=== PATIENT | female | born 1930 | race Caucasian/White ===

== ENCOUNTER 2018-07-19 16:25 | Inpatient (IN) | payer MEDICARE ==
--- NOTE | 2018-07-19 17:25 | ED ---
Altered Mental Status - HPI Summary HPI Summary: The patient is an 88 y/o F presenting to [facility] accompanied by edge gluer with a chief complaint of intermittent gradual onset confusion for the last few weeks. Per edge gluer, the patient has seemingly been unsure of what she is doing and more forgetful. She reports that she is afraid to be alone. She was unwilling to get out of bed today. Her PCP, Dr. Gomez advised the patient to come here. No smoking or EtOH. - History Of Current Complaint Chief Complaint: EDAltMentalStatus Stated Complaint: CONFUSION Time Seen by Provider: 07/19/18 16:52 Hx Obtained From: Patient, Family/Long Term Care Social Worker Onset/Duration: Still Present, Gradually Timing: Intermittent Severity Initially: Mild Severity Currently: Mild Character: Confusion Aggravating Factor(s): Nothing Alleviating Factor(s): Nothing - Allergies/Home Medications Allergies/Adverse Reactions: Allergies Allergy/AdvReac Type Severity Reaction Status Date / Time No Known Allergies Allergy Verified 07/19/18 16:48 Home Medications: Home Medications Benazepril/Hydrochlorothiazide [Benazepril HCl/Hydrochlor 20-25 mg-] 1 tab PO DAILY 07/19/18 [History Confirmed 07/19/18] Levothyroxine TAB* [Synthroid TAB*] 25 mcg PO EVERY OTHER DAY 07/19/18 [History Confirmed 07/19/18] PMH/Surg Hx/FS Hx/Imm Hx Endocrine/Hematology History: Denies: Hx Diabetes Opthamlomology History: Reports: Hx Contacts or Glasses - Surgical History Surgery Procedure, Year, and Place: none Infectious Disease History: No Infectious Disease History: Denies: Traveled Outside the [place] in Last 30 Days - Family History Known Family History: Positive: Unknown - patient is unsure - Social History Alcohol Use: None Hx Substance Use: No Substance Use Type: Reports: None Hx Tobacco Use: Yes Smoking Status (MU): Former Smoker Review of Systems Negative: Fever, Chills Negative: Erythema Negative: Sore Throat Negative: Chest Pain Negative: Shortness Of Breath, Cough Negative: Abdominal Pain, Vomiting, Nausea Negative: dysuria, hematuria Negative: Myalgia, Edema Negative: Rash Neurological: Other - POSITIVE: afraid to be alone confused; NEGATIVE: dizziness All Other Systems Reviewed And Are Negative: Yes Physical Exam - Summary Physical Exam Summary: Constitutional: Well-developed, Well-nourished, Alert. (-) Distressed Skin: Warm, Dry HENT: Normocephalic; Atraumatic, Dry mucous membranes Eyes: Conjunctiva normal Neck: Musculoskeletal ROM normal neck. (-) JVD, (-) Stridor, (-) Tracheal deviation Cardio: Rhythm regular, rate normal, Heart sounds normal; Intact distal pulses; The pedal pulses are 2+ and symmetric. Radial pulses are 2+ and symmetric. (-) Murmur Pulmonary/Chest wall: Effort normal. (-) Respiratory distress, (-) Wheezes, (-) Rales Abd: Soft, (-) epigastric tenderness, (-) Distension, (-) Guarding, (-) Rebound Musculoskeletal: (-) Edema Lymph: (-) Cervical adenopathy Neuro: Alert, Oriented x3 Psych: Mood and affect Normal Triage Information Reviewed: Yes Vital Signs On Initial Exam: Initial Vitals Temp Pulse Resp BP Pulse Ox 99.1 F 79 16 179/93 96 07/19/18 16:30 07/19/18 16:30 07/19/18 16:30 07/19/18 16:30 07/19/18 16:30 Vital Signs Reviewed: Yes Diagnostics - Vital Signs Vital Signs Temp Pulse Resp BP Pulse Ox 07/19/18 16:30 99.1 F 79 16 179/93 96 - Laboratory Result Diagrams: 07/19/18 17:24 07/19/18 17:24 Lab Statement: Any lab studies that have been ordered have been reviewed, and results considered in the medical decision making process. - EKG 1743 Cardiac Rate: NL - 73 BPM EKG Rhythm: Sinus Rhythm Summary of EKG Findings: No STEMI. Altered Mental Statu Course/Dx - Course Course Of Treatment: The patient is an 88 y/o F presenting to [facility] accompanied by edge gluer with a chief complaint of intermittent gradual onset confusion for the last few weeks. Per edge gluer, the patient has seemingly been unsure of what she is doing and more forgetful. She reports that she is afraid to be alone. She was unwilling to get out of bed today. Her PCP, Dr. Gomez advised the patient to come here. Upon physical exam, the patient exhibits dry mucous membranes. In the ED course, the patient was given Potassium Chloride for low potassium. Blood work otherwise normal. UA reveals WBCs, RBCs, and leukocytes. I consulted with the patients oil spreader operator, who is also her health proxy, at 1720 to confirm admission; he is agreeable. I spoke with Dr. Redmond, hospitalist, at 19 :55, who accepts the patient for admission. Patient agrees and understands the need for admission. She is diagnosed with UTI and delirium. - Diagnoses Provider Diagnoses: UTI (urinary tract infection), Delirium - Provider Notifications Discussed Care Of Patient With: Declan Redmond - hospitalist Time Discussed With Above Provider: 19:55 Instructed by Provider To: Other - Dr. Redmond accepts the patient for admission. Discharge - Sign-Out/Discharge Documenting (check all that apply): Patient Departure - [place] [facility] [place] by Dr. Redmond. - Discharge Plan Condition: Stable Disposition: ADMITTED TO [facility] - Billing Disposition and Condition Condition: STABLE Disposition: Admitted to [facility] - Attestation Statements Document Initiated by Janettibe: Yes Documenting Scribe: Angy Guillen Provider For Whom Moni is Documenting (Include Credential): Dr. Christian Solorio MD Scribe Attestation: I, Angy Guillen, scribed for Dr. Christian Solorio MD on 07/19/18 at 6861. Scribe Documentation Reviewed: Yes Provider Attestation: The documentation as recorded by the Angy cutler accurately reflects the service I personally performed and the decisions made by me, Dr. Christian Solorio MD Status of Scribe Document: Viewed
[2018-07-19 17:39] LABS: Hematocrit 46 % (35-47); Hemoglobin 15.6 g/dl (12.0-16.0); Mean Corpuscular HGB Conc 34 g/dl (31-36); Mean Corpuscular Hemoglobin 31 pg (27-31); Mean Corpuscular Volume 92 fL (80-97); Mean Platelet Volume 9.8 fL (7.4-10.4); Platelet Count 227 10^3/ul (150-450); Red Blood Count 5.02 10^6/ul (4.00-5.40); Red Cell Distribution Width 13 % (10.5-15); White Blood Count 9.2 10^3/ul (3.5-10.8)
[2018-07-19 17:55] LABS: Albumin/Globulin Ratio 1.2 (1-3); BUN/Creatinine Ratio 23.8 (8-20); Calcium 9.7 mg/dL (8.6-10.3); EGFR Non-African American 89.6 (>60); Globulin 3.3 g/dL (2-4); Potassium 3.2 mmol/L (3.5-5.0); Total Bilirubin 0.7 mg/dL (0.2-1.0); Total Protein 7.3 g/dL (6.4-8.9)
[2018-07-19] MEDS ORDERED: Potassium Chloride LIQUID* 20 MEQ PACKET PO ONE (18:59)
[2018-07-19 19:30] LABS: Urine Appearance Cloudy; Urine Bacteria Absent (Absent); Urine Bilirubin Negative (Negative); Urine Blood Negative (Negative); Urine Color Yellow; Urine Glucose Negative (Negative); Urine Ketones Negative (Negative); Urine Nitrite Negative (Negative); Urine Protein Negative (Negative); Urine Red Blood Cell Absent (Absent); Urine Specific Gravity 1.012 (1.010-1.030); Urine Urobilinogen Negative (Negative); Urine White Blood Cell 3+(>20/hpf) (Absent)
[2018-07-19] MEDS ORDERED: cefTRIAXone(*) 1 GM in NS 0.9% 50 ML* 50 ML IVPB ONE (19:54)
[2018-07-19] MEDS ORDERED: Potassium Chlor TAB* 10 MEQ TAB.ER PO ONE (20:40)
[2018-07-19] MEDS: Heparin VIAL(*) 5000 UNITS/ML VIAL (FIVE THOUSAND) SUBCUT SCH (22:47)
--- NOTE | 2018-07-19 23:05 | HP ---
CC: Dr. Gomez * HISTORY AND PHYSICAL: DATE OF ADMISSION: 07/19/18 PROVIDER: Wen Aguirre NP. PRIMARY CARE PROVIDER: Dr. Gomez. ATTENDING PHYSICIAN WHILE IN THE HOSPITAL: Dr. Declan Redmond * (dictated by Wen Aguirre NP). CHIEF COMPLAINT: Confusion. HISTORY OF PRESENT ILLNESS: Ms. Forte is an 88-year-old female with a past medical history significant for hypertension, hypothyroid, asthma, and chronic hepatitis C who presented to the emergency room with increased confusion. The patient denies any recent fever, chills, cough, congestion, shortness of breath , abdominal pain, nausea, vomiting, or diarrhea. Denies any hematuria, dysuria , or urinary frequency. Per the apparel manufacture instructor, the patient has had progressively increased confusion for the past 2 years, but more significant over the past 3 weeks. Due to the increased confusion, the patient was brought to the emergency room. Per the apparel manufacture instructor, the patient calls him several times a day stating she does not know what to do or what to do next. At this point, the apparel manufacture instructor feels that the patient is not able to stay at home by herself and will need placement. Due to her altered mental status and increased confusion, we were asked to see and evaluate her for admission. PAST MEDICAL HISTORY: Significant for: 1. Hypertension. 2. Hypothyroid. 3. Asthma. 4. Chronic hepatitis C. PAST SURGICAL HISTORY: 1. Hysterectomy. 2. Appendectomy. 3. Cataract surgery. HOME MEDICATIONS: Include: 1. Levothyroxine. 2. Benazepril/hydrochlorothiazide 20 mg/25 mg 1 tablet p.o. daily. 3. Multivitamin 1 tablet p.o. daily. ALLERGIES: She is allergic to EGGS and CHEESE. FAMILY HISTORY: Sister is a breast cancer survivor. Father at age 76 of an CT. One daughter suicide and depression. The patient has a daughter in [place] and an estranged son. SOCIAL HISTORY: She lives alone. Surrogate decision maker in the event she is unable to make her own decisions is her staff attorney, Freddie Rodriguez. She is a do not resuscitate. REVIEW OF SYSTEMS: She denies any fever, loss of appetite. Denies any chest pain, edema, cough, hemoptysis, or shortness of breath. Denies any nausea, vomiting, diarrhea, abdominal pain, hematuria, or dysuria. Denies any focal weakness, sensory loss, visual complaints, dysphagia, arthralgias, myalgias, rashes, lesions, psychosis, or anxiety. She does report some increased confusion and unable to function on her own at home. PHYSICAL EXAMINATION GENERAL: At this time, Ms. Forte is an 88-year-old female, resting on the stretcher in the emergency room. She appears well nourished, in no acute distress. HEENT: Head is atraumatic, normocephalic. Eyes: EOMs are intact. Sclerae anicteric and not pale. Oral mucosa appears to be moist. NECK: Supple. LUNGS: Clear to auscultation bilaterally. No wheezes, rales, or rhonchi. CARDIAC: S1, S2. Regular rate and rhythm with occasional PVC. ABDOMEN: Soft and nontender. Bowel sounds are present x4. No suprapubic tenderness to palpation. EXTREMITIES: Pedal pulses are +2 bilaterally. She is able to move all 4 extremities with 5/5 strength. There is no edema. NEUROLOGIC: The patient is confused to situation, but able to be orient. SKIN: Intact. DIAGNOSTIC STUDIES/LAB DATA: WBCs were 9.2, RBCs 5.02, hemoglobin 15.6, hematocrit 46, platelet count 227. Sodium 139, potassium 3.2, chloride 99, carbon dioxide was 35, anion gap was 5, BUN was 15, creatinine 0.63. Troponin was 0.01. Glucose was 93. Urine was yellow, cloudy, pH was 8.0, specific gravity 1.012. Urine protein, ketones, blood, nitrites, bilirubin, urobilinogen was all negative. Urine leukocyte esterase was 3+, wbc's were 3+, rbc's were absent, squamous epithelial cells were present, bacteria was absent, glucose was negative. ASSESSMENT AND PLAN: Ms. Forte is an 88-year-old female with a past medical history significant for hypertension, hypothyroid, asthma, and chronic hepatitis C who presented to the emergency room for increased confusion and reports of unable to care for herself at home. She will be admitted under observation for: 1. Altered mental status. I suspect this could be related to underlying urinary tract infection. The patient has had a decline with confusion for 2 years, but progressively worsened in the last 3 weeks. The patient has no other complaints. She denies any shortness of breath, cough, or congestion. She was given ceftriaxone 1 g IV in the emergency room. We will continue ceftriaxone 1 g IV daily for urinary tract infection. 2. Hypertension. We will continue on benazepril/hydrochlorothiazide as previously prescribed. 3. Hypothyroid. I will continue on levothyroxine as previously prescribed. 4. Hypokalemia. Her potassium was 3.2. She did receive a total of 40 mEq of potassium and will repeat her potassium level in the a.m. 5. FEN: She can have a heart-healthy, caffeine-okay diet. 6. Code status: She is a DNR. 7. DVT prophylaxis: I will place her on heparin subcu. TIME SPENT: Time spent on this admission was approximately 60 minutes, greater than half that time was spent at the bedside reviewing events thus far to her hospitalization, performing my physical exam, and implementing my plan of care. I have discussed this with my attending, Dr. Declan Redmond; he is in agreement with my plan. WEN AGUIRRE, JOSE [id number]/CPS #: [id number] JUNG
[2018-07-20] MEDS ORDERED: Melatonin 3 MG TAB PO ONE (03:17)
[2018-07-20] MEDS: Melatonin 3 MG TAB PO SCH ×2 (03:23→20:09)
[2018-07-20] MEDS: Heparin VIAL(*) 5000 UNITS/ML VIAL (FIVE THOUSAND) SUBCUT SCH ×3 (05:57→20:09)
[2018-07-20] MEDS ORDERED: NS 0.9% 1000 ML* 1,000 ML IV SCH (07:30)
[2018-07-20 08:55] LABS: BUN/Creatinine Ratio 30.8 (8-20); Calcium 9.3 mg/dL (8.6-10.3); EGFR Non-African American 86.4 (>60); Potassium 3.2 mmol/L (3.5-5.0)
[2018-07-20] MEDS ORDERED: HYDROCHLOROTHIAZIDE PO SCH (09:00)
[2018-07-20] MEDS ORDERED: [UNRECOGNIZED DRUG - OTHER] PO SCH (09:00)
[2018-07-20] MEDS ORDERED: BENAZEPRIL PO SCH (09:00)
[2018-07-20 09:11] LABS: TSH (Thyroid Stimulating Horm) 7.16 mcIU/mL (0.34-5.60)
[2018-07-20] MEDS: Hydrochlorothiazide TAB* 25 MG PO SCH (09:30)
[2018-07-20] MEDS: Lisinopril TAB* 10 MG PO SCH (09:30)
[2018-07-20] MEDS ORDERED: Potassium Chloride LIQUID* 20 MEQ PACKET PO ONE (09:56)
--- NOTE | 2018-07-20 14:52 | PN ---
Subjective Date of Service: 07/20/18 Interval History: Patient is very confused today, patient does not know where she is, what year it is, who is the president, or any details about her clinical situation. Patient denies F/C, N/V, abdominal pain, CP, SOB, diarrhea, or other pain. Discussed patient with POA and she has been deteriorating mentally recently with a more steep deterioration in the last month. Family History: Unchanged from Admission Social History: Unchanged from Admission Past Medical History: Unchanged from Admission Objective Active Medications: Acetaminophen (Tylenol Tab*) 650 mg PO Q4H PRN PRN Reason: FEVER/PAIN Heparin Sodium (Porcine) (Heparin Vial(*)) 5,000 units SUBCUT Q8HR [facility] Last Admin: 07/20/18 12:45 Dose: 5,000 units Hydrochlorothiazide (Hydrodiuril Tab*) 25 mg PO DAILY [facility] Last Admin: 07/20/18 09:30 Dose: 25 mg Ceftriaxone Sodium 1 gm/ (Sodium Chloride) 50 mls @ 200 mls/hr IVPB Q24H [facility] Lisinopril (Prinivil Tab*) 20 mg PO DAILY [facility] Last Admin: 07/20/18 09:30 Dose: 20 mg Melatonin (Melatonin) 3 mg PO BEDTIME [facility] Last Admin: 07/20/18 03:23 Dose: 3 mg Vital Signs - 8 hr 07/20/18 07/20/18 07:34 10:55 Temperature 97.6 F 97.4 F Pulse Rate 68 60 Respiratory 20 18 Rate Blood Pressure 142/60 117/52 (mmHg) O2 Sat by Pulse 98 98 Oximetry Oxygen Devices in Use Now: None Appearance: Patient is an 88yo female who appears stated age and is sitting in the bed in [facility]. Eyes: No Scleral Icterus, PERRLA Ears/Nose/Mouth/Throat: NL Teeth, Lips, Gums, Clear Oropharnyx, Mucous Membranes Moist Neck: NL Appearance and Movements; NL JVP, Trachea Midline Respiratory: Symmetrical Chest Expansion and Respiratory Effort, Clear to Auscultation Cardiovascular: NL Sounds; No Murmurs; No JVD, RRR, No Edema Abdominal: NL Sounds; No Tenderness; No Distention, No Hepatosplenomegaly Lymphatic: No Cervical Adenopathy Extremities: No Edema, No Clubbing, Cyanosis Skin: No Rash or Ulcers, No Nodules or Sclerosis Neurological: NL Sensation, NL Muscle Strength and Tone, - - Unstable gait, wide based. Result Diagrams: 07/19/18 17:24 07/20/18 07:54 Assess/Plan/Problems-Billing Assessment: Patient is an 88yo female with a PMH for HTN, Hypothyroidism, and Hep C who presents with worsening confusion over the last 3 weeks in a similar pattern to when she has had previous UTIs. Patient is still very confused and unsteady on her feet. - Patient Problems (1) Toxic metabolic encephalopathy Current Visit: Yes Status: Acute Code(s): G92 - TOXIC ENCEPHALOPATHY SNOMED Code(s): 409637256 Comment: - Increased confusion, likely caused by UTI, currently unsafe to D/C home due to confusion and unsteady gait - Continue fluids and antibiotics - Check ammonia due to Hep C. (2) UTI (urinary tract infection) Current Visit: Yes Status: Acute Comment: - Positive UA - Continue Ceftriaxone awaiting culture. (3) Hypothyroidism Current Visit: Yes Status: Acute Code(s): E03.9 - HYPOTHYROIDISM, UNSPECIFIED SNOMED Code(s): 84937982 Comment: - Elevated TSH with normal hormones - Repeat outpatient and continue current synthroid dose. (4) Dementia Current Visit: Yes Status: Acute Code(s): F03.90 - UNSPECIFIED DEMENTIA WITHOUT BEHAVIORAL DISTURBANCE SNOMED Code(s): 74422448 Comment: - Worsening, likely alzheimers, consider outpatient neuro consult and 1 time shayla imaging through primary care provider. (5) DVT prophylaxis Current Visit: Yes Status: Acute Code(s): VCH9565 - SNOMED Code(s): 159757778 Comment: - Heparin SubQ. (6) DNR (do not resuscitate) Current Visit: Yes Status: Acute Status and Disposition: Observation, Possible placement, currently unsafe for discharge home.
[2018-07-20] MEDS ORDERED: LORazepam TAB(*) 0.5 MG PO ONE (19:46)
[2018-07-20] MEDS: cefTRIAXone(*) 1 GM in NS 0.9% 50 ML* 50 ML IVPB SCH (20:08)
[2018-07-20] MEDS: Lactulose* 15 ML UDC PO SCH (20:08)
[2018-07-20] MEDS: Acetaminophen TAB* 325 MG PO PRN (20:09)
[2018-07-21] MEDS: Heparin VIAL(*) 5000 UNITS/ML VIAL (FIVE THOUSAND) SUBCUT SCH ×3 (05:53→20:06)
[2018-07-21 08:03] LABS: EGFR Non-African American 104.8 (>60); Potassium 3.7 mmol/L (3.5-5.0)
[2018-07-21] MEDS: Lisinopril TAB* 10 MG PO SCH (09:29)
[2018-07-21] MEDS: Lactulose* 15 ML UDC PO SCH ×2 (09:29→20:06)
[2018-07-21] MEDS: Hydrochlorothiazide TAB* 25 MG PO SCH (09:29)
[2018-07-21 11:46] LABS: INR 0.91 (0.77-1.02)
--- NOTE | 2018-07-21 13:48 | PN ---
Subjective Date of Service: 07/21/18 Interval History: Patient is more lucid today. Patient is able to state the year, president, where she is, patient is not quite sure why she is in the hospital. Patient is able to remember the history of her hepatitis C and that she opted out of treatment for it before. Patient has very poor short term memory and compreshension and needs to have questions and statements repeated several times. Patient unable to remember contents of conversation earlier when she is visited again later. Patient has a large amount of difficulty working with PT/ OT. Family History: Unchanged from Admission Social History: Unchanged from Admission Past Medical History: Unchanged from Admission Objective Active Medications: Acetaminophen (Tylenol Tab*) 650 mg PO Q4H PRN PRN Reason: FEVER/PAIN Last Admin: 07/20/18 20:09 Dose: 650 mg Heparin Sodium (Porcine) (Heparin Vial(*)) 5,000 units SUBCUT Q8HR [facility] Last Admin: 07/21/18 05:53 Dose: 5,000 units Hydrochlorothiazide (Hydrodiuril Tab*) 25 mg PO DAILY [facility] Last Admin: 07/21/18 09:29 Dose: 25 mg Ceftriaxone Sodium 1 gm/ (Sodium Chloride) 50 mls @ 200 mls/hr IVPB Q24H [facility] Last Admin: 07/20/18 20:08 Dose: 200 mls/hr Lactulose (Lactulose*) 15 ml PO BID [facility] Last Admin: 07/21/18 09:29 Dose: 15 ml Lisinopril (Prinivil Tab*) 20 mg PO DAILY [facility] Last Admin: 07/21/18 09:29 Dose: 20 mg Melatonin (Melatonin) 3 mg PO BEDTIME [facility] Last Admin: 07/20/18 20:09 Dose: 3 mg Vital Signs - 8 hr 07/21/18 07/21/18 07:27 11:36 Temperature 97.2 F 97.5 F Pulse Rate 52 56 Respiratory 18 18 Rate Blood Pressure 158/64 157/71 (mmHg) O2 Sat by Pulse 96 97 Oximetry Oxygen Devices in Use Now: None Appearance: Patient is an 88yo female who appears stated age and is sitting in the bed in [facility]. Eyes: No Scleral Icterus, PERRLA Ears/Nose/Mouth/Throat: NL Teeth, Lips, Gums, Clear Oropharnyx, Mucous Membranes Moist Neck: NL Appearance and Movements; NL JVP, Trachea Midline Respiratory: Symmetrical Chest Expansion and Respiratory Effort, Clear to Auscultation Cardiovascular: NL Sounds; No Murmurs; No JVD, RRR, No Edema Abdominal: NL Sounds; No Tenderness; No Distention, No Hepatosplenomegaly Lymphatic: No Cervical Adenopathy Extremities: No Edema, No Clubbing, Cyanosis Skin: No Rash or Ulcers, No Nodules or Sclerosis Neurological: NL Sensation, NL Muscle Strength and Tone, - - Unsteady gait, Alert and oriented to person, place but not time. Result Diagrams: 07/19/18 17:24 07/21/18 07:26 Assess/Plan/Problems-Billing Assessment: Patient is an 88yo female with a PMH for HTN, Hypothyroidism, and Hep C who presents with worsening confusion over the last 3 weeks in a similar pattern to when she has had previous UTIs. Patient is slightly less confused today but is performing poorly with PT/OT and is unsafe to go home. - Patient Problems (1) Toxic metabolic encephalopathy Current Visit: Yes Status: Acute Code(s): G92 - TOXIC ENCEPHALOPATHY SNOMED Code(s): 454724629 Comment: - Slight improvement in mental status - Likely caused by UTI, currently unsafe to D/C home due to confusion and unsteady gait - Continue antibiotics - Ammonia elevated below 2x upper limit of normal - Ammonia decreased with lactulose therapy with improvement in mental state. However, patient has no signs of cirrhosis on imaging and no other laboratory signs of cirrhosis making the elevation in ammonia of unclear clinical significance (2) UTI (urinary tract infection) Current Visit: Yes Status: Acute Comment: - Positive UA - Continue Ceftriaxone awaiting culture. (3) Hypothyroidism Current Visit: Yes Status: Acute Code(s): E03.9 - HYPOTHYROIDISM, UNSPECIFIED SNOMED Code(s): 08822566 Comment: - Elevated TSH with normal hormones - Repeat outpatient and continue current synthroid dose. (4) Dementia Current Visit: Yes Status: Acute Code(s): F03.90 - UNSPECIFIED DEMENTIA WITHOUT BEHAVIORAL DISTURBANCE SNOMED Code(s): 73303128 Comment: - Worsening, likely alzheimers, consider outpatient neuro consult and 1 time shayla imaging through primary care provider. - Patient is unsafe to send home and will likely need placement (5) DVT prophylaxis Current Visit: Yes Status: Acute Code(s): FRW6730 - SNOMED Code(s): 283442892 Comment: - Heparin SubQ. (6) DNR (do not resuscitate) Current Visit: Yes Status: Acute Status and Disposition: Observation, Possible placement, currently unsafe for discharge home.
[2018-07-21] MEDS: cefTRIAXone(*) 1 GM in NS 0.9% 50 ML* 50 ML IVPB SCH (20:02)
[2018-07-21] MEDS: Melatonin 3 MG TAB PO SCH (20:06)
[2018-07-21] MEDS ORDERED: LORazepam TAB(*) 0.5 MG PO ONE (20:40)
[2018-07-22] MEDS: Acetaminophen TAB* 325 MG PO PRN (00:14)
[2018-07-22] MEDS: Heparin VIAL(*) 5000 UNITS/ML VIAL (FIVE THOUSAND) SUBCUT SCH ×3 (05:30→20:05)
[2018-07-22 05:54] LABS: ABS Basophils 0.1 10^3/ul (0-0.2); ABS Eosinophils 0.2 10^3/ul (0-0.6); ABS Lymphocytes 1.1 10^3/ul (1.0-4.8); ABS Monocytes 0.5 10^3/ul (0-0.8); ABS Neutrophils 3.1 10^3/ul (1.5-7.7); ABS Nucleated RBC 0 10^3/ul; Eosinophil % 4.9 %; Hematocrit 39 % (35-47); Hemoglobin 13.3 g/dl (12.0-16.0); Lymphocyte % 22.4 %; Mean Corpuscular HGB Conc 34 g/dl (31-36); Mean Corpuscular Hemoglobin 31 pg (27-31); Mean Corpuscular Volume 91 fL (80-97); Mean Platelet Volume 9.6 fL (7.4-10.4); Nucleated Red Blood Cells % 0; Platelet Count 176 10^3/ul (150-450); Red Blood Count 4.34 10^6/ul (4.00-5.40); Red Cell Distribution Width 13 % (10.5-15); White Blood Count 4.9 10^3/ul (3.5-10.8)
[2018-07-22 06:18] LABS: EGFR Non-African American 94.8 (>60); Magnesium 1.7 mg/dL (1.9-2.7); Potassium 3.4 mmol/L (3.5-5.0)
[2018-07-22] MEDS ORDERED: Potassium Chlor TAB* 20 MEQ TAB.ER PO ONE (08:02)
--- NOTE | 2018-07-22 08:04 | PN ---
Subjective Date of Service: 07/22/18 Interval History: patient remains confusion to situation. Patient does report that she is here because she is unable to care for herself at home. She is oriented x 3, but needs constant reminding of situation. Denies chest pain or shortness of breath. denies abd pain n/v/d. denies fever or chills Family History: Unchanged from Admission Social History: Unchanged from Admission Past Medical History: Unchanged from Admission Objective Active Medications: Acetaminophen (Tylenol Tab*) 650 mg PO Q4H PRN PRN Reason: FEVER/PAIN Last Admin: 07/22/18 00:14 Dose: 650 mg Heparin Sodium (Porcine) (Heparin Vial(*)) 5,000 units SUBCUT Q8HR [facility] Last Admin: 07/22/18 05:30 Dose: 5,000 units Hydrochlorothiazide (Hydrodiuril Tab*) 25 mg PO DAILY [facility] Last Admin: 07/21/18 09:29 Dose: 25 mg Ceftriaxone Sodium 1 gm/ (Sodium Chloride) 50 mls @ 200 mls/hr IVPB Q24H [facility] Last Admin: 07/21/18 20:02 Dose: 200 mls/hr Lactulose (Lactulose*) 15 ml PO BID [facility] Last Admin: 07/21/18 20:06 Dose: 15 ml Lisinopril (Prinivil Tab*) 20 mg PO DAILY [facility] Last Admin: 07/21/18 09:29 Dose: 20 mg Melatonin (Melatonin) 3 mg PO BEDTIME [facility] Last Admin: 07/21/18 20:06 Dose: 3 mg Vital Signs - 8 hr 07/22/18 07/22/18 07/22/18 01:26 02:16 07:13 Temperature 97.0 F 97.0 F Pulse Rate 58 66 Respiratory 18 16 18 Rate Blood Pressure 158/58 152/70 (mmHg) O2 Sat by Pulse 97 96 Oximetry Oxygen Devices in Use Now: None Appearance: well nourished elderly female , no acute distress Eyes: No Scleral Icterus Ears/Nose/Mouth/Throat: Clear Oropharnyx, Mucous Membranes Moist Neck: NL Appearance and Movements; NL JVP, Trachea Midline Respiratory: Symmetrical Chest Expansion and Respiratory Effort, Clear to Auscultation Cardiovascular: NL Sounds; No Murmurs; No JVD, No Edema Abdominal: NL Sounds; No Tenderness; No Distention Extremities: No Edema, No Clubbing, Cyanosis Skin: No Rash or Ulcers Neurological: Alert and Oriented x 3, - - confused to situation Nutrition: Taking PO's Result Diagrams: 07/22/18 05:38 07/22/18 05:38 Assess/Plan/Problems-Billing Assessment: Patient is an 88yo female with a PMH for HTN, Hypothyroidism, and Hep C who presents with worsening confusion over the last 3 weeks in a similar pattern to when she has had previous UTIs. Patient is slightly less confused today but is performing poorly with PT/OT and is unsafe to go home. - Patient Problems (1) Toxic metabolic encephalopathy Current Visit: Yes Status: Acute Code(s): G92 - TOXIC ENCEPHALOPATHY SNOMED Code(s): 685496879 Comment: - Slight improvement in mental status - Likely caused by UTI, currently unsafe to D/C home due to confusion and unsteady gait - Continue antibiotics - Ammonia was elevated below 2x upper limit of normal - Ammonia decreased with lactulose therapy with improvement in mental state. - remains confused to situation and weepy today. -However, patient has no signs of cirrhosis on imaging and no other laboratory signs of cirrhosis making the elevation in ammonia of unclear clinical significance (2) UTI (urinary tract infection) Current Visit: Yes Status: Acute Comment: - Positive UA - Continue Ceftriaxone - culture pending (3) Hypokalemia Current Visit: Yes Status: Acute Code(s): E87.6 - HYPOKALEMIA SNOMED Code( s): 29739463 Comment: K+ 3.4 today - will replace and repeat level tomorrow (4) Hypomagnesemia Current Visit: Yes Status: Acute Code(s): E83.42 - HYPOMAGNESEMIA SNOMED Code(s): 739205810 Comment: magnesium 1.7 - replaced will recheck tomorrow (5) Hypothyroidism Current Visit: Yes Status: Acute Code(s): E03.9 - HYPOTHYROIDISM, UNSPECIFIED SNOMED Code(s): 94136681 Comment: - Elevated TSH with normal hormones - Repeat outpatient and continue current synthroid dose. (6) Dementia Current Visit: Yes Status: Acute Code(s): F03.90 - UNSPECIFIED DEMENTIA WITHOUT BEHAVIORAL DISTURBANCE SNOMED Code(s): 40089657 Comment: - Worsening, likely alzheimers, consider outpatient neuro consult and 1 time shayla imaging through primary care provider. - Patient is unsafe to send home and will need placement (7) DVT prophylaxis Current Visit: Yes Status: Acute Code(s): UPU2573 - SNOMED Code(s): 209522045 Comment: - Heparin SubQ. (8) DNR (do not resuscitate) Current Visit: Yes Status: Acute Status and Disposition: Observation, Possible placement, currently unsafe for discharge home.
[2018-07-22] MEDS: Lactulose* 15 ML UDC PO SCH ×2 (09:23→19:57)
[2018-07-22] MEDS: Lisinopril TAB* 10 MG PO SCH (09:25)
[2018-07-22] MEDS: Magnesium Sulfate 1 GM IV* 1 GM/100 ML BAG IV ONE ×2 (09:25→09:48)
[2018-07-22] MEDS: Hydrochlorothiazide TAB* 25 MG PO SCH (09:26)
[2018-07-22] MEDS: Melatonin 3 MG TAB PO SCH (19:57)
[2018-07-22] MEDS: cefTRIAXone(*) 1 GM in NS 0.9% 50 ML* 50 ML IVPB SCH (19:57)
[2018-07-23] MEDS: Acetaminophen TAB* 325 MG PO PRN (00:49)
[2018-07-23] MEDS: Heparin VIAL(*) 5000 UNITS/ML VIAL (FIVE THOUSAND) SUBCUT SCH ×3 (04:29→21:26)
[2018-07-23 05:58] LABS: BUN/Creatinine Ratio 32.8 (8-20); Calcium 9.4 mg/dL (8.6-10.3); Magnesium 1.9 mg/dL (1.9-2.7); Potassium 3.9 mmol/L (3.5-5.0)
[2018-07-23] MEDS: Lisinopril TAB* 10 MG PO SCH (10:13)
[2018-07-23] MEDS: Hydrochlorothiazide TAB* 25 MG PO SCH (10:13)
[2018-07-23] MEDS: Lactulose* 15 ML UDC PO SCH ×2 (10:14→21:25)
--- NOTE | 2018-07-23 16:22 | PN ---
Subjective Date of Service: 07/23/18 Interval History: Nursing staff reports that the patient was up most of the night. remains confused to situation and time. Patient reports that she feels really tired this AM. States that she just wants to sleep. Denies chest pain or shortness of breath. Denies abd pain n/v/d. Family History: Unchanged from Admission Social History: Unchanged from Admission Past Medical History: Unchanged from Admission Objective Active Medications: Acetaminophen (Tylenol Tab*) 650 mg PO Q4H PRN PRN Reason: FEVER/PAIN Last Admin: 07/23/18 00:49 Dose: 650 mg Heparin Sodium (Porcine) (Heparin Vial(*)) 5,000 units SUBCUT Q8HR [facility] Last Admin: 07/23/18 13:48 Dose: 5,000 units Hydrochlorothiazide (Hydrodiuril Tab*) 25 mg PO DAILY [facility] Last Admin: 07/23/18 10:13 Dose: 25 mg Ceftriaxone Sodium 1 gm/ (Sodium Chloride) 50 mls @ 200 mls/hr IVPB Q24H [facility] Last Admin: 07/22/18 19:57 Dose: 200 mls/hr Lactulose (Lactulose*) 15 ml PO BID [facility] Last Admin: 07/23/18 10:14 Dose: 15 ml Lisinopril (Prinivil Tab*) 20 mg PO DAILY [facility] Last Admin: 07/23/18 10:13 Dose: 20 mg Melatonin (Melatonin) 3 mg PO BEDTIME [facility] Last Admin: 07/22/18 19:57 Dose: 3 mg Vital Signs - 8 hr 07/23/18 10:20 Respiratory 16 Rate Oxygen Devices in Use Now: None Appearance: confused elderly female , sitting in a chair in the [place]. Eyes: No Scleral Icterus Ears/Nose/Mouth/Throat: Clear Oropharnyx, Mucous Membranes Moist Neck: NL Appearance and Movements; NL JVP, Trachea Midline Respiratory: Symmetrical Chest Expansion and Respiratory Effort, Clear to Auscultation Cardiovascular: NL Sounds; No Murmurs; No JVD, No Edema Abdominal: NL Sounds; No Tenderness; No Distention Extremities: No Edema, No Clubbing, Cyanosis Skin: No Rash or Ulcers Neurological: - - oriented to name and place, confused to situation. Nutrition: Taking PO's Result Diagrams: 07/22/18 05:38 07/23/18 05:03 Microbiology and Other Data: Microbiology 07/21/18 11:15 Urine Culture - Final Urine No Growth (<1,000 CFU/mL) Assess/Plan/Problems-Billing Assessment: Patient is an 88yo female with a PMH for HTN, Hypothyroidism, and Hep C who presents with worsening confusion over the last 3 weeks in a similar pattern to when she has had previous UTIs. Patient is slightly less confused today but is performing poorly with PT/OT and is unsafe to go home. - Patient Problems (1) Toxic metabolic encephalopathy Current Visit: Yes Status: Acute Code(s): G92 - TOXIC ENCEPHALOPATHY SNOMED Code(s): 726873642 Comment: - Slight improvement in mental status - remains unsafe to D/C home due to confusion and unsteady gait - stop antibiotics - Ammonia was elevated below 2x upper limit of normal- improved - Ammonia decreased with lactulose therapy with mild improvement in mental state. - remains confused to situation and weepy today. -However, patient has no signs of cirrhosis on imaging and no other laboratory signs of cirrhosis making the elevation in ammonia of unclear clinical significance (2) UTI (urinary tract infection) Current Visit: Yes Status: Acute Comment: - Positive UA - Continue Ceftriaxone - culture no growth - will stop ceftriaxone (3) Hypokalemia Current Visit: Yes Status: Acute Code(s): E87.6 - HYPOKALEMIA SNOMED Code( s): 73794593 Comment: resolved - will continue to monitor (4) Hypomagnesemia Current Visit: Yes Status: Acute Code(s): E83.42 - HYPOMAGNESEMIA SNOMED Code(s): 861652666 Comment: magnesium 1.9- normal (5) Hypothyroidism Current Visit: Yes Status: Acute Code(s): E03.9 - HYPOTHYROIDISM, UNSPECIFIED SNOMED Code(s): 01153154 Comment: - Elevated TSH with normal hormones - Repeat outpatient and continue current synthroid dose. (6) Dementia Current Visit: Yes Status: Acute Code(s): F03.90 - UNSPECIFIED DEMENTIA WITHOUT BEHAVIORAL DISTURBANCE SNOMED Code(s): 74628389 Comment: - Worsening, likely alzheimers, consider outpatient neuro consult and 1 time sh[facility]la imaging through primary care provider. - Patient is unsafe to send home and will need placement - remains confused , not sleep well at night - very anxious about not sleeping - will start seroquel 25mg po tonight (7) DVT prophylaxis Current Visit: Yes Status: Acute Code(s): ZTC7860 - SNOMED Code(s): 556214738 Comment: - Heparin SubQ. (8) DNR (do not resuscitate) Current Visit: Yes Status: Acute Status and Disposition: Observation, Possible placement, currently unsafe for discharge home.
[2018-07-23] MEDS: cefTRIAXone(*) 1 GM in NS 0.9% 50 ML* 50 ML IVPB SCH (21:25)
[2018-07-23] MEDS: QUEtiapine TAB* 25 MG PO SCH ×3 (21:25→21:27)
[2018-07-23] MEDS: Melatonin 3 MG TAB PO SCH (21:25)
[2018-07-24] MEDS: Heparin VIAL(*) 5000 UNITS/ML VIAL (FIVE THOUSAND) SUBCUT SCH (06:02)
[2018-07-24] MEDS: Hydrochlorothiazide TAB* 25 MG PO SCH (09:50)
[2018-07-24] MEDS: Lisinopril TAB* 10 MG PO SCH (09:50)
[2018-07-24] MEDS: Lactulose* 15 ML UDC PO SCH (09:51)
[2018-07-24 12:19] VITALS: BP 134/64
--- NOTE | 2018-07-24 13:25 | DS ---
CC: Dr. Gomez * DATE OF ADMISSION: 07/21/2018. DATE OF DISCHARGE: 07/24/2018. PROVIDER: Dustin Aguirre NP. ATTENDING PHYSICIAN: Dr. Veronica Silva * (dictated by Dustin Aguirre NP). PRIMARY CARE PHYSICIAN: Dr. Gomez. PRIMARY DIAGNOSIS: Confusion, suspect dementia. SECONDARY DIAGNOSES: 1. Hypertension. 2. Hypothyroid. 3. Asthma. 4. History of chronic hepatitis C, declined treatment. 5. Elevated ammonia level. STUDIES COMPLETED WHILE IN THE HOSPITAL: 1. She had an ultrasound of the gallbladder: Unremarkable ultrasound of the upper quadrant. 2. She had a CT of the brain that showed age-related diffuse cerebral and cerebellar volume loss and chronic microvascular ischemic changes. No acute intracranial pathology. 3. She had an electrocardiogram which showed sinus rhythm and PAC's at a rate of 73. DISCHARGE MEDICATIONS: New home medications: 1. Lactulose 15 ml once daily. 2. Seroquel 25 mg p.o. at bedtime. Continued home medications: 1. Levothyroxine 25 mcg p.o. every other day. 2. Benazepril/Hydrochlorothiazide 20/25 one tablet p.o. daily. 3. Acetaminophen 650 mg p.o. q.4 hours if needed. 4. Melatonin 3 mg p.o. at bedtime. HISTORY OF PRESENT ILLNESS AND HOSPITAL COURSE: Ms. Forte is an 88-year-old female with a past medical history significant for hypertension, hypothyroid, asthma, and chronic hepatitis C, declined treatment, who presented to the emergency room with progressively worsening confusion. She has denied any recent sick contacts or illnesses. 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 Due to the increased confusion, she was brought to the emergency room for evaluation. While in the emergency room, the patient did seem confused. She did have routine lab work which was unremarkable other than an ammonia level which was noted to be 81 on admission and repeat ammonia level after Lactulose was within normal limits at 45. She did have a potassium level that was low on admission at 3.2 and her TSH was elevated at 7.16 with normal Thyroxine and free T3 levels. Her vitamin B12 was 412. The patient is alert and oriented times three. She is confused to situation with repeatedly asking what to do next. The patient is able to ambulate without difficulty. She has no other complaints. She was monitored during this hospitalization. She did have difficulty sleeping at night and was started on Seroquel 25 mg at bedtime which helped improve her symptoms of insomnia. At this time, Ms. Forte is stable for discharge home. Vital Signs: Temperature 97.5, heart rate 76, respirations 16, O2 saturation 98 percent, blood pressure 134/64. REVIEW OF SYSTEMS: The patient denies fevers or chills; denies any nausea, vomiting, or diarrhea; denies any abdominal pain; denies any chest pain or shortness of breath. The patient is alert and oriented times three. She does report she does feel confused about the situation. PHYSICAL EXAMINATION: General: Ms. Forte is an 88-year-old female. She is sitting in a chair. She appears comfortable, in no acute distress. HEENT: Head is atraumatic, normocephalic. Eyes: EOM's are intact. Sclerae anicteric and not pale. Oral mucosa appeared to be moist. Neck: Supple. Lungs: Clear to auscultation bilaterally. No wheezes, rales, or rhonchi. Cardiac: S1, S2. Regular rate and rhythm. No murmurs, rubs, or gallops. Abdomen: Soft and nontender. Bowel sounds are present times four. Extremities: Pedal pulses are +2 bilaterally. She is able to move all four extremities with 5/5 strength. Neurologic: She is awake, alert, and oriented times three. Her speech is clear. She does have repetitive asking of "what to do next" and does follow most directions. She does have difficulty with some directions and does need to have them repeated. Skin: Intact. DISCHARGE PLAN: Ms. Forte will be discharged to [facility]. Activity as tolerated. She should continue on a heart-healthy diet, low sodium. 1. Confusion: I suspect this is related to dementia. She should have a neurology consult as an outpatient. She should follow-up with her primary care provider in one to two weeks as needed. 2. Hypertension: She should continue on her Benazepril as previously prescribed. 3. Hypothyroidism: She should continue on Levothyroxine 25 mcg every other day as previously prescribed. She should follow-up for a repeat TSH in four to six weeks. This is a summarization of her hospitalization. For further details, please see the entire medical record. TIME SPENT: Time spent on this discharge was approximately 60 minutes, greater than half that time was spent with the patient discussing discharge plans and instructions. CONDITION ON DISCHARGE: Stable. DUSTIN AGUIRRE NP [id number]/CPS #: [id number] JUNG
== END 2018-07-24 14:25 | DRG 92 ==
LOC: ED 16:25 → MED 20:30 → OBSVTOIN 07-21 17:44
PROVIDERS: ADMIT Internal Medicine; ATTEND Internal Medicine
DX: G92 Toxic encephalopathy (principal); N39.0 Urinary tract infection, site not specified; E83.42 Hypomagnesemia; G30.9 Alzheimer's disease, unspecified; F02.80 Dementia in other diseases classified elsewhere, unspecified severity, without behavioral disturbance, psychotic disturbance, mood disturbance, and anxiety; I10 Essential (primary) hypertension; B18.2 Chronic viral hepatitis C; E03.9 Hypothyroidism, unspecified; J45.909 Unspecified asthma, uncomplicated; E87.6 Hypokalemia; Z66 Do not resuscitate; R41.0 Disorientation, unspecified; Z79.899 Other long term (current) drug therapy; Z91.012 Allergy to eggs; Z91.018 Allergy to other foods; Z80.3 Family history of malignant neoplasm of breast; Z82.49 Family history of ischemic heart disease and other diseases of the circulatory system; Z81.8 Family history of other mental and behavioral disorders
CPT/HCPCS: 36415; 70450; 76705; 80048; 80053; 81003; 81015; 82105; 82140; 82607; 83735; 84436; 84443; 84481; 84484; 85025; 85027; 85610; 87086; 93005; 96365; 96372; 99284; A9270-GY; G0378; G8978-GP-CJ; G8979-GP-CI; G8987-GO-CI; G8988-GO-CH; G8989-GO-CI; J0696; J1644; J3475

== ENCOUNTER 2018-09-17 17:46 | Observation (INO) | payer MEDICARE ==
--- OUTSIDE RECORDS SUMMARY | 2018-09-17 18:27 | XMS REPORT | Continuity of Care Document ---
:1930 External Reference #:[id number] Author Name Kajal Gomez M.D. Address [address] [place] [address] Care Team Providers Name Role Phone Kajal Gomez M.D. Care Team Information Waste Disposal Leakage Tester Unavailable Payers Date Identification Numbers Payment Provider Subscriber Effective: 1999 Policy Number: [id number] Medicare - [facility] Bonnie Forte PayID: [id number] [address] [place] [address] Effective: 2000 Policy Number: [facility] Bonnie Forte [id number] Expires: [address] [place] [address] Effective: 2011 Policy Number: [id number] [facility] Bonnie Forte [facility] [address] [place] [address] Advance Directives Description No Information Available Problems Date Description Provider Status Onset: 11/11/2002 Chronic hepatitis C Kyle Ji M.D. Active Onset: 11/11/2002 Benign secondary hypertension Kyle Ji M.D. Active Onset: 11/11/2002 Asthma without status asthmaticus Kyle Ji M.D. Active Onset: 01/26/2011 Hypothyroidism Kajal Gomez M.D. Active Onset: 01/26/2011 Essential hypertension Kajal Gomez M.D. Active Onset: 01/26/2011 Insomnia Kajal Gomez M.D. Active Onset: 01/26/2011 Hearing loss Kajal Gomez M.D. Active Onset: 01/26/2011 Diaphragmatic hernia Kajal Gomez M.D. 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 No ETOH. Tobacco Use Start: Unknown Patient has never smoked Allergies, Adverse Reactions, Alerts Date Description Reaction Status Severity Comments 10/31/2003 NKDA Active 04/26/2007 Tetanus Active Large Local Reaction- Swollen And Red In Upper Arm Medications Medication Date Status Form Strength Qnty SIG Indications Ordering Provider Losartan 08/15 Active Tablets 25mg 30tab take one Kajal Potassium /2018 s tablet by P. mouth every Ble[facility], day for M.D. blood pressure Temazepam 08/15 Active Capsules 7.5mg 20cap 1 po qhs s prn P. insomnia Rebecca Gomez Potassium 10/02 Active Tablets ER 595mg 1 po qd Kajal Gluconate Ashley Gomez M.D. Ventolin HFA 06/07 Active Aerosol 108(90Bas 18uni two puffs e) ts by mouth P. mcg/Act every 4 Blegen, hours as M.D. needed for wheezing- may fill with any preferred- please do not fill until patient call Levothyroxine 05/19 Active Tablets 25mcg 135ta take 1 Kajal Sodium /2006 bs tablet by P. mouth every Blegen, other on M.D. empty stomach for low thyroid Levofloxacin 08/15 Hx Tablets 500mg 8tabs 1 tab by everyday P. - for 8 days [facility], 08/28 for M.D. /2018 pneumonia Align 08/15 Hx Capsules 4mg 14cap 1 by mouth s every day P. - as directed [facility], 08/28 M.D. Vitamin D3 10/04 Hx Capsules 1000Unit 1 by mouth every day P. - [facility], 12/27 M.D. Multivitamins 09/29 Hx Capsules 1 Per Day (With Iron) P. - [facility], 12/27 M.D. Potassium 09/29 Hx Tablets 75mg otc- takes qd P. - [facility], 10/02 M.D. Vitamin D3 10/05 Hx Capsules 2000Unit 1 by mouth every day P. - [facility], 10/04 M.D. Melatonin ER 09/11 Hx Tablets ER 3mg one by mouth every P. - night at [facility], 03/21 bedtime as M.D. needed Lorazepam 05/26 Hx Tablets 0.5mg 30tab / to 1 by s mouth every P. - night at [facility], 07/04 bedtime as .D. needed anxiety Advil PM 04/07 Hx Capsules 200-25mg 1 po at bedtime as P. - needed [facility], 10/02 M.D. Trazodone HCL 04/04 Hx Tablets 50mg 30tab 1/2-1 po s qhs for P. - insomnia as [facility], 05/06 directed M.D. Diphenhydramine 04/04 Hx Capsules 25mg 1/2-1 po Kajal qhs prn P. - allergies/ [facility], 09/11 sleep M.D. Prednisone 11/28 Hx Tablets 20mg 21tab take 3 466.0 s tablets x 3 Keaton, - days, then [employer] 04/03 2 tablets x 3 days,then 1 tablet x 3 days, then 1/2 tablet x 3 days. Azithromycin 11/28 Hx Tablets 250mg 6tabs take 2 466.0 tablets Keaton, - today then [employer] 04/03 1 tablet daily for the next 4 days Guaifenesin/Code 11/28 Hx Syrup 100-10mg/ 240ml 1 - 2 466.0 5ML teaspoon po Keaton, - q 4 hours [employer] 04/03 prn cough, causes drowsiness Pataday 09/26 Hx Solution 0.2% 1unit one drop s each eye P. - once per [facility], 07/19 day as . needed for allergy eye symptoms Alprazolam 04/11 Hx Tablets 0.5mg 30tab 2-1 po s qhs prn P. - insomnia [facility], 09/10 M.D. Alprazolam 04/02 Hx Tablets 0.25mg 20tab 07/11-2 po s qhs prn P. - anxiety/ [facility], 04/11 sleep M.D. Patanol 10/02 Hx Solution 0.1% 5ml one to two gtts ou bid P. - prn [facility], 04/02 allergic .D. conjunctiv itis Azithromycin 08/12 Hx Tablets 250mg 6tabs 2 po qd x 1 461.8 day, then 1 K.W. - po qd Jam, 04/02.D. Multiple 01/26 Hx Tablets for iron [facility] Vitamins/Iron deficiency P. - anemia- 1 Ble[facility], 03/25 week per M.D. month Triamcinolone 08/30 Hx Cream 0.1% 30Gra apply qd to Kajal Acetonide ms bid to rash P. - for up to 2 [facility], 04/02 weeks .D. (steroid) Gabapentin 01/05 Hx Capsules 300mg 180ca Take 1 To 2 ps Capsules By P. - Mouth AT [facility], 04/04 Bedtime For .. Sleep Gabapentin 12/29 Hx Capsules 100mg 30cap take 1-3 s capsules P. - qhs prn for [facility], 01/05 insomnia/ M.D. pain Nasonex 12/10 Hx Suspension 50mcg/Act 1unit 2 sprays Shawnt s each R. Storm, - nostril qd [employer] 04/02 as Claritin 12/10 Hx Tabs 10mg 4tabs 1 PO qd P. - [facility]gen, 03/25 M.D. Temazepam 08/06 Hx Capsules 15mg 30cap one po qhs s prn for P. - insomnia [facility], 01/26 M.D. Restoril 08/03 Hx Capsules 7.5mg 7caps one po qhs prn P. - insomnia [facility], 08/06.D. Lunesta 07/27 Hx Tablets 3mg 14tab one po qhs s for P. - insomnia [facility], 08/03.D. Sonata 07/21 Hx Capsules 5mg 30cap 1-2 po qhs s prn P. - insomnia [facility], 07/27.D. Oxycodone HCL 07/16 Hx Tablets 5mg 20tab 1 po bid s prn severe P. - pain [facility], 04/02 instead of .. morphine Morphine Sulfate 07/07 Hx Tablets 15mg 60tab one po q 4 s hours prn P. - severe pain [facility], 07/16.D. Nitrofurantoin 06/03 Hx Capsules 100mg 14cap One PO bid [facility] s X 7 Days P. - prn Urinary Blegen, 03/25 Tract M.D. Infection Zovirax 06/03 Hx Ointment 5% 15gm use topically P. - at first [facility], 04/02 sign of .D. cold sore 5 times per day x 5 days Albuterol HFA 12/26 Hx 90mcg/Inh 1unit 2 puffs q 4 s hours prn P. - wheezing Blegen, 06/07.D. Procardia XL 05/28 Hx Tablets ER 30mg 90tab take one 24HR s tablet by P. - mouth every Ble[facility], 08/15 day for M.D. /2018 blood pressure Cipro 01/15 Hx Tablets 250mg 6tabs one bid x 3 599.0 Crystal /2006 days A. - Anam, 06/03 [facility] Cortisporin-TC 01/08 Hx Suspension 10ml 4 gtts ti 112.82 Crystal Otic affected A. - ear qid x7 Anam, 10/18 days for [facility] /2006 otitis externa Sonata 05/06 Hx Capsules 10mg 30cap 1 hs prn Kyle s Garrison Benedict M.D. 01/08 Nortriptyline 04/25 Hx Capsules 25mg 60cap 1 or 2 hs Kyle s prn sleep Garrison Benedict M.D. 05/06 Sonata 02/28 Hx Capsules 5mg 30cap 1 hs prn Kyle s Garrison Benedict M.D. 04/25 Albuterol 01/13 Hx Aerosol 90mcg/Dos 17gm 2 puffs q4h e prn P. - Blegen, 12/26 M.DChapo /2008 Keflex 10/30 Hx Tablets 500mg 30tab one tid x s 10 days Jak Olmstead.DChapo 01/13 Flovent HFA 11/11 Hx Aerosol 44mcg/Act 10.6u not nits currently P. - taking- Blegen, 12/31 inhale two M.D. puffs by mouth twice a day; rinse mouth after use Lotensin 04/04 Hx Tablets 20mg 30tab One qd Kyle s Garrison Benedict M.D. 04/04 Lotensin HCT 04/04 Hx Tablets 20-25mg 90tab take 1 s tablet by Meena Trinidad, - mouth daily [employer] 08/15 Estraderm Patch 12/19 Hx .05mg 24uni one ts bi-weekly Garrison Benedict M.D. 04/25 Medications Administered in Office Medication Date Status Form Strength Qnty SIG Indications Ordering Provider Rocephin Administered Injection Valente Olmstead, (Ceftriaxone) 004 M.D. Per 250MG Therapeutic Administered Injection Valente Olmstead, Injection 004 M.D. (Specify Material Injected) Immunizations CPT Code Status Date Vaccine Lot # [id number] Given 03/21/2017 Influenza Vaccine High Dose PF [id number] 01997 Given 09/30/2015 Influenza Vaccine High Dose PF [id number] 20981 Given 09/11/2014 Prevnar-13 Pneumococcal Conjugate Vaccine [id number] 72012 Given 04/07/2014 Influenza Virus Vaccine, Quadrivalent, 3 Yr > [id number] Quad, Preserv Free 66733 Given 04/04/2013 Influenza Vaccine-Preservative Free 3 Yrs And [id number] Above 39844 Given 04/02/2012 Influenza Vaccine-Preservative Free 3 Yrs And [id number] Above 18161 Given 06/24/2011 Influenza Vaccine-Preservative Free 3 Yrs And [id number] Above 75286 Given 04/21/2010 Influenza Vaccine-Preservative Free 3 Yrs And [id number] Above 71824 Given 05/06/2009 Influenza Vaccine-Preservative Free 3 Yrs And [id number] Above 74480 Given 05/28/2008 Influenza Virus Vaccine, 3 Yrs And Above [id number] 66555 Given 04/26/2007 Influenza Virus Vaccine, 3 Yrs And Above 98644 Given 04/21/2006 Influenza Virus Vaccine, 3 Yrs And Above [id number] 15977 Given 04/25/2005 Influenza Virus Vaccine, 3 Yrs And Above 21805 Given 10/20/2004 DT (Adult) 69725 Given 04/08/2003 Influenza Virus Vaccine, 3 Yrs And Above 28137 Given 04/08/2003 Influenza Virus Vaccine, 3 Yrs And Above 68599 Given 04/26/2002 Influenza Virus Vaccine, 3 Yrs And Above 41145 Given 03/29/2001 Influenza Virus Vaccine, 3 Yrs And Above 97157 Given Unknown Pneumovax 23 (PPSV23) 65+ years or high risk 2 to 64 year old Vital Signs Date Vital Result Comment 08/29/2018 3:20pm Weight 98.50 lb Weight 44.680 kg BP Systolic 124 mmHg BP Diastolic 80 mmHg Heart Rate 80 /min Body Temperature 97.6 F Respiratory Rate 18 /min O2 % BldC Oximetry 98 % 08/15/2018 11:49am Weight 99.00 lb Weight 44.906 kg BP Systolic 110 mmHg BP Diastolic 60 mmHg Heart Rate 78 /min Body Temperature 97.8 F Respiratory Rate 16 /min Height 62.5 inches 5'2.50" BMI (Body Mass Index) 17.8 kg/m2 O2 % BldC Oximetry 96 % 07/19/2018 3:10pm Weight 101.00 lb Weight 45.814 kg BP Systolic 142 mmHg BP Diastolic 80 mmHg Heart Rate 70 /min Body Temperature 98.8 F Respiratory Rate 20 /min O2 % BldC Oximetry 97 % 12/27/2017 10:11am Weight 103.00 lb Weight 46.721 kg BP Systolic 132 mmHg BP Diastolic 74 mmHg Heart Rate 74 /min Body Temperature 97.3 F Respiratory Rate 16 /min Height 62.5 inches 5'2.50" BMI (Body Mass Index) 18.5 kg/m2 03/21/2017 4:46pm Weight 125.00 lb Weight 56.700 kg BP Systolic 132 mmHg BP Diastolic 80 mmHg Heart Rate 76 /min Body Temperature 97.5 F Respiratory Rate 20 /min 09/30/2015 10:07am Weight 120.00 lb Weight 54.432 kg BP Systolic 130 mmHg BP Diastolic 57 mmHg Heart Rate 84 /min Height 61 inches 5'1" BMI (Body Mass Index) 22.7 kg/m2 09/11/2014 9:30am Weight 115.00 lb Weight 52.164 kg BP Systolic 142 mmHg BP Diastolic 68 mmHg Heart Rate 76 /min Height 62.5 inches 5'2.50" BMI (Body Mass Index) 20.7 kg/m2 07/02/2014 12:20pm Weight 112.31 lb Weight 50.945 kg BP Systolic 162 mmHg BP Diastolic 84 mmHg Heart Rate 62 /min Body Temperature 98.7 F O2 % BldC Oximetry 98 % 04/07/2014 11:45am Weight 116.00 lb Weight 52.618 kg BP Systolic 120 mmHg BP Diastolic 82 mmHg Heart Rate 68 /min 04/04/2013 9:25am Weight 117.00 lb Weight 53.071 kg BP Systolic 122 mmHg BP Diastolic 66 mmHg Heart Rate 76 /min Height 62.5 inches 5'2.50" BMI (Body Mass Index) 21.1 kg/m2 11/28/2012 4:01pm Weight 115.00 lb Weight 52.164 kg BP Systolic 130 mmHg BP Diastolic 60 mmHg Heart Rate 84 /min Body Temperature 98.1 F O2 % BldC Oximetry 97 % level at rest 11/26/2012 11:50am Weight 116.00 lb Weight 52.618 kg BP Systolic 136 mmHg BP Diastolic 70 mmHg Heart Rate 72 /min Body Temperature 97.9 F 04/02/2012 10:17am Weight 120.00 lb Weight 54.432 kg BP Systolic 130 mmHg BP Diastolic 66 mmHg Heart Rate 68 /min Height 62 inches 5'2" BMI (Body Mass Index) 21.9 kg/m2 03/26/2012 10:20am Weight 121.00 lb Weight 54.886 kg BP Systolic 120 mmHg BP Diastolic 66 mmHg Heart Rate 88 /min Body Temperature 96.9 F 08/12/2011 11:00am Weight 125.00 lb Weight 56.700 kg BP Systolic 130 mmHg BP Diastolic 78 mmHg Heart Rate 70 /min Body Temperature 96.3 F O2 % BldC Oximetry 98 % AT Room Air 03/25/2011 8:46am Weight 140.00 lb Weight 63.504 kg BP Systolic 140 mmHg BP Diastolic 80 mmHg Heart Rate 88 /min Body Temperature 97.3 F Height 62.5 inches 5'2.50" BMI (Body Mass Index) 25.2 kg/m2 01/26/2011 10:20am Weight 141.50 lb Weight 64.184 kg BP Systolic 108 mmHg BP Diastolic 62 mmHg Heart Rate 76 /min Height 62.25 inches 5'2.25" BMI (Body Mass Index) 25.7 kg/m2 08/30/2010 10:49am Weight 142.00 lb Weight 64.411 kg BP Systolic 160 mmHg BP Diastolic 88 mmHg Heart Rate 104 /min 12/29/2009 11:57am Weight 126.00 lb Weight 57.154 kg BP Systolic 148 mmHg BP Diastolic 90 mmHg Heart Rate 80 /min 12/10/2009 10:23am Weight 124.00 lb Weight 56.246 kg BP Systolic 150 mmHg BP Diastolic 88 mmHg Heart Rate 80 /min 12/02/2009 4:19pm Weight 122.00 lb Weight 55.339 kg BP Systolic 130 mmHg BP Diastolic 70 mmHg Heart Rate 88 /min Body Temperature 98.5 F 07/27/2009 1:52pm Weight 130.00 lb Weight 58.968 kg BP Systolic 130 mmHg BP Diastolic 70 mmHg Heart Rate 80 /min 06/11/2009 11:15am Weight 138.00 lb Weight 62.597 kg BP Systolic 140 mmHg BP Diastolic 80 mmHg Heart Rate 80 /min 06/03/2009 9:25am Weight 139.00 lb Weight 63.050 kg BP Systolic 110 mmHg BP Diastolic 68 mmHg Heart Rate 60 /min 05/06/2009 11:49am Weight 141.00 lb Weight 63.958 kg BP Systolic 172 mmHg BP Diastolic 82 mmHg Heart Rate 80 /min Body Temperature 97.5 F 08/23/2008 9:54am Weight 133.00 lb Weight 60.329 kg BP Systolic 140 mmHg BP Diastolic 80 mmHg Body Temperature 97.8 F 06/23/2008 11:45am Weight 134.00 lb Weight 60.782 kg BP Systolic 138 mmHg BP Diastolic 76 mmHg Heart Rate 78 /min Height 62.5 inches 5'2.50" BMI (Body Mass Index) 24.1 kg/m2 05/28/2008 9:32am Weight 133.00 lb Weight 60.329 kg BP Systolic 170 mmHg BP Diastolic 90 mmHg Heart Rate 68 /min Height 62.5 inches 5'2.50" BMI (Body Mass Index) 23.9 kg/m2 06/30/2007 9:50am Weight 129.00 lb Weight 58.514 kg BP Systolic 160 mmHg BP Diastolic 82 mmHg Heart Rate 88 /min Body Temperature 97.7 F Height 62.5 inches 5'2.50" BMI (Body Mass Index) 23.2 kg/m2 O2 % BldC Oximetry 98 % 04/26/2007 8:57am Weight 127.00 lb Weight 57.607 kg BP Systolic 140 mmHg BP Diastolic 84 mmHg Heart Rate 72 /min Body Temperature 97.0 F Height 62.5 inches 5'2.50" BMI (Body Mass Index) 22.9 kg/m2 01/15/2007 2:19pm Weight 127.00 lb Weight 57.607 kg BP Systolic 118 mmHg BP Diastolic 68 mmHg Heart Rate 76 /min Body Temperature 97.8 F Height 62 inches 5'2" BMI (Body Mass Index) 23.2 kg/m2 01/08/2007 2:17pm Weight 129.00 lb Weight 58.514 kg BP Systolic 130 mmHg BP Diastolic 70 mmHg Body Temperature 97.8 F Oral Height 62 inches 5'2" BMI (Body Mass Index) 23.6 kg/m2 04/28/2006 9:36am Weight 126.00 lb Weight 57.154 kg BP Systolic 130 mmHg BP Diastolic 70 mmHg Heart Rate 92 /min Respiratory Rate 18 /min Height 62 inches 5'2" BMI (Body Mass Index) 23.0 kg/m2 04/25/2005 12:52pm Weight 137.50 lb Weight 62.370 kg BP Systolic 148 mmHg BP Diastolic 78 mmHg Height 62 inches 5'2" BMI (Body Mass Index) 25.1 kg/m2 10/20/2004 4:43pm Weight 136.00 lb Weight 61.690 kg BP Systolic 120 mmHg BP Diastolic 76 mmHg Heart Rate 80 /min Height 62.3 inches 5'2.30" BMI (Body Mass Index) 24.6 kg/m2 10/11/2004 3:07pm Weight 136.00 lb Weight 61.690 kg BP Systolic 128 mmHg BP Diastolic 70 mmHg Heart Rate 76 /min Respiratory Rate 18 /min Height 62.3 inches 5'2.30" BMI (Body Mass Index) 24.6 kg/m2 04/23/2004 8:44am Weight 131.00 lb Weight 59.422 kg BP Systolic 148 mmHg BP Diastolic 80 mmHg Heart Rate 71 /min Respiratory Rate 18 /min Height 62.3 inches 5'2.30" BMI (Body Mass Index) 23.7 kg/m2 10/31/2003 4:06pm Weight 135.00 lb Weight 61.236 kg BP Systolic 168 mmHg BP Diastolic 72 mmHg Heart Rate 70 /min Body Temperature 97.0 F Respiratory Rate 18 /min 11/11/2002 3:31pm Weight 129.00 lb Weight 58.514 kg BP Systolic 140 mmHg BP Diastolic 80 mmHg Heart Rate 80 /min Respiratory Rate 18 /min Height 62.3 inches BMI (Body Mass Index) 23.4 kg/m2 04/04/2002 9:38am Weight 140.00 lb Weight 63.500 kg BP Systolic 120 mmHg BP Diastolic 80 mmHg Heart Rate 68 /min 10/16/2001 9:48am Weight 152.00 lb BP Systolic 120 mmHg BP Diastolic 70 mmHg Heart Rate 72 /min Respiratory Rate 18 /min Results Test Date Facility Test Result H/L Range Note Basic Metabolic 08/29/2018 [facility] Sodium 141 mmol /L N 135-145 Panel [phone] Potassium 3.9 mmol/L N 3.5-5.0 Chloride 104 mmol/L N 101-111 Co2 Carbon Dioxide 33 mmol/L High 22-32 Anion Gap 4 mmol/L N 2-11 Glucose 80 mg/dL N 70-100 Blood Urea Nitrogen 24 mg/dL N 6-24 Creatinine 0.74 mg/dL N 0.51-0.95 BUN/Creatinine Ratio 32.4 High 8-20 Calcium 9.3 mg/dL N 8.6-10.3 Egfr Non- 74.4 >60 Egfr 90.0 >60 1 CBC No Diff 07/19/2018 [facility] White Blood 9.2 10^ 3/uL N 3.5-10.8 [phone] Count Red Blood Count 5.02 10^6/uL N 4.00-5.40 Hemoglobin 15.6 g/dL N 12.0-16.0 Hematocrit 46 % N 35-47 Mean Corpuscular Volume 92 fL N 80-97 Mean Corpuscular Hemoglobin 31 pg N 27-31 Mean Corpuscular HGB Conc 34 g/dL N 31-36 Red Cell Distribution Width 13 % N 10.5-15 Platelet Count 227 10^3/uL N 150-450 Mean Platelet Volume 9.8 fL N 7.4-10.4 Comp Metabolic Panel 07/19/2018 [facility] Sodium 139 mmol/L N 135-145 [phone] Potassium 3.2 mmol/L Low 3.5-5.0 Chloride 99 mmol/L Low 101-111 Co2 Carbon Dioxide 35 mmol/L High 22-32 Anion Gap 5 mmol/L N 2-11 Glucose 93 mg/dL N 70-100 Blood Urea Nitrogen 15 mg/dL N 6-24 Creatinine 0.63 mg/dL N 0.51-0.95 BUN/Creatinine Ratio 23.8 High 8-20 Calcium 9.7 mg/dL N 8.6-10.3 Total Protein 7.3 g/dL N 6.4-8.9 Albumin 4.0 g/dL N 3.2-5.2 Globulin 3.3 g/dL N 2-4 Albumin/Globulin Ratio 1.2 N 1-3 Total Bilirubin 0.70 mg/dL N 0.2-1.0 Alkaline Phosphatase 56 U/L N 34-104 Alt 34 U/L N 7-52 Ast 38 U/L N 13-39 Egfr Non- 89.6 >60 Egfr 108.4 >60 2 Urine DIP 07/19/2018 In House Lab Leukocytes 2+ High Neg [phone] Urine Nitrites NEG Neg Urobilinogen NORM Norm Total Protein, Urine TRACE Neg Urine pH 9 High 5-6 Urine Blood TRACE Neg Specific [place] 1.000 Low 1.01-1.02 Urine Ketones NEG Neg Urine Bilirubin NEG Neg Urine Glucose NORM Norm Laboratory test 07/19/2018 [facility] Troponin-I (TnI ) 0.01 ng/mL <0.04 3 finding [phone] Urinalysis 07/19/2018 [facility] Urine Color Yellow Profile [phone] Urine Appearance Cloudy Urine Specific [place] 1.012 N 1.010-1.030 Urine pH 8.0 N 5-9 Urine Urobilinogen Negative Negative Urine Ketones Negative Negative Urine Protein Negative Negative Urine Leukocytes 3+ Abnormal Negative Urine Blood Negative Negative Urine Nitrite Negative Negative Urine Bilirubin Negative Negative Urine Glucose Negative Negative Urine White Blood Cell 3+(>20/hpf) Abnormal Absent Urine Red Blood Cell Absent Absent Urine Bacteria Absent Absent Urine Squamous Epithelial Cell Present Abnormal Absent Urine Culture And 07/19/2018 [facility] Urine Culture SEE RESULT 4 Sensitivities [phone] BELOW Laboratory test 12/27/2017 [facility] TSH (Thyroid 3.26 mcIU/mL N 0.34- 5 finding [phone] Stim Horm) 5.60 Laboratory test 12/27/2017 [facility] Ferritin 26.7 ng/mL N 11-30 6 finding [phone] 7 Iron & Iron Binding 12/27/2017 [facility] Iron 125 g/dL N 50-21 Capacity [phone] Unsaturated Iron Binding 456 g/dL Total Iron Binding Capacity 581 g/dL High 250-450 Transferrin 415 mg/dL High 203-362 % Iron Saturation 22 % N 15-55 CBC Auto Diff 12/27/2017 [facility] White Blood 6.5 10^3/uL N 3.5-10.8 [phone] Count Red Blood Count 5.33 10^6/uL N 4.00-5.40 Hemoglobin 16.1 g/dL High 12.0-16.0 Hematocrit 47 % N 35-47 Mean Corpuscular Volume 88 fL N 80-97 Mean Corpuscular Hemoglobin 30 pg N 27-31 Mean Corpuscular HGB Conc 34 g/dL N 31-36 Red Cell Distribution Width 15 % N 10.5-15 Platelet Count 237 10^3/uL N 150-450 Mean Platelet Volume 9.9 um3 N 7.4-10.4 Abs Neutrophils 4.6 10^3/uL N 1.5-7.7 Abs Lymphocytes 1.3 10^3/uL N 1.0-4.8 Abs Monocytes 0.5 10^3/uL N 0-0.8 Abs Eosinophils 0 10^3/uL N 0-0.6 Abs Basophils 0.1 10^3/uL N 0-0.2 Abs Nucleated RBC 0 10^3/uL Granulocyte % 70.8 % N 38-83 Lymphocyte % 19.7 % Low 25-47 Monocyte % 7.6 % High 0-7 Eosinophil % 0.8 % N 0-6 Basophil % 1.1 % N 0-2 Nucleated Red Blood Cells % 0.2 Laboratory test 12/27/2017 [facility] Vitamin D 72.7 ng/mL High 20-50 7 finding [phone] Total 25(Oh) Comp Metabolic 12/27/2017 [facility] Sodium 140 mmol/ L N 135-145 Panel [phone] Potassium 3.6 mmol/L N 3.5-5.0 Chloride 99 mmol/L Low 101-111 Co2 Carbon Dioxide 31 mmol/L N 22-32 Anion Gap 10 mmol/L N 2-11 Glucose 87 mg/dL N 70-100 Blood Urea Nitrogen 30 mg/dL High 6-24 Creatinine 0.92 mg/dL N 0.51-0.95 BUN/Creatinine Ratio 32.6 High 8-20 Calcium 10.2 mg/dL N 8.6-10.3 Total Protein 7.8 g/dL N 6.4-8.9 Albumin 4.4 g/dL N 3.2-5.2 Globulin 3.4 g/dL N 2-4 Albumin/Globulin Ratio 1.3 N 1-3 Total Bilirubin 0.70 mg/dL N 0.2-1.0 Alkaline Phosphatase 37 U/L N 34-104 Alt 37 U/L N 7-52 Ast 41 U/L High 13-39 Egfr Non- 58.0 >60 Egfr 70.2 >60 8 Liver Function 03/21/2017 [facility] Total Protein 7.8 g/dL N 6.4-8.9 Panel [phone] Albumin 4.3 g/dL N 3.2-5.2 Globulin 3.5 g/dL N 2-4 Albumin/Globulin Ratio 1.2 N 1-3 Total Bilirubin 0.60 mg/dL N 0.2-1.0 Direct Bilirubin 0.20 mg/dL High 0.03-0.18 Indirect Bilirubin 0.4 mg/dL N 0.3-1.0 Alkaline Phosphatase 48 U/L N 34-104 Alt 33 U/L N 7-52 Ast 43 U/L High 13-39 Laboratory test 03/21/2017 [facility] Vitamin D 104.8 High 20-50 9 finding [phone] Total 25(Oh) ng/mL CBC Auto Diff 03/21/2017 [facility] White Blood 7.1 N 3.5-10.8 [phone] Count 10^3/uL Red Blood Count 5.19 10^6/uL N 4.0-5.4 Hemoglobin 13.5 g/dL N 12.0-16.0 Hematocrit 42 % N 35-47 Mean Corpuscular Volume 81 fL N 80-97 Mean Corpuscular Hemoglobin 26 pg Low 27-31 Mean Corpuscular HGB Conc 32 g/dL N 31-36 Red Cell Distribution Width 17 % High 10.5-15 Platelet Count 269 10^3/uL N 150-450 Mean Platelet Volume 11 um3 High 7.4-10.4 Abs Neutrophils 5.2 10^3/uL N 1.5-7.7 Abs Lymphocytes 1.3 10^3/uL N 1.0-4.8 Abs Monocytes 0.5 10^3/uL N 0-0.8 Abs Eosinophils 0.1 10^3/uL N 0-0.6 Abs Basophils 0.1 10^3/uL N 0-0.2 Abs Nucleated RBC 0.02 10^3/uL N Granulocyte % 73.4 % N 38-83 Lymphocyte % 17.7 % Low 25-47 Monocyte % 6.8 % N 1-9 Eosinophil % 0.9 % N 0-6 Basophil % 1.2 % N 0-2 Nucleated Red Blood Cells % 0.3 N Laboratory test 03/21/2017 [facility] Ferritin < 10.0 ng/mL Low 11-307 10 finding [phone] Basic Metabolic 03/21/2017 [facility] Sodium 135 mmol /L N 133-145 Panel [phone] Potassium 3.3 mmol/L Low 3.5-5.0 Chloride 97 mmol/L Low 101-111 Co2 Carbon Dioxide 29 mmol/L N 22-32 Anion Gap 9 mmol/L N 2-11 Glucose 96 mg/dL N 70-100 Blood Urea Nitrogen 20 mg/dL N 6-24 Creatinine 0.81 mg/dL N 0.51-0.95 BUN/Creatinine Ratio 24.7 High 8-20 Calcium 10.2 mg/dL N 8.6-10.3 Egfr Non- 67.4 N >60 Egfr 86.6 N >60 11 Laboratory test 03/21/2017 [facility] TSH (Thyroid 3.03 mcIU/mL N 0.34-5.60 12 finding [phone] Stim Horm) Laboratory test 07/21/2015 [facility] TSH (Thyroid 3.32 ?IU/mL N 0.34-5.60 finding [phone] Stim Horm) Comp Metabolic 07/21/2015 [facility] Sodium 137 mmol/ L N 133-145 Panel [phone] Potassium 4.4 mmol/L N 3.5-5.0 Chloride 101 mmol/L N 101-111 Co2 Carbon Dioxide 28 mmol/L N 22-32 Anion Gap 8 mmol/L N 2-11 Glucose 99 mg/dL N 70-100 Blood Urea Nitrogen 34 mg/dL High 6-24 Creatinine 0.89 mg/dL N 0.51-0.95 BUN/Creatinine Ratio 38.2 High 8-20 Calcium 9.8 mg/dL N 8.6-10.3 Total Protein 7.4 g/dL N 6.4-8.9 Albumin 4.2 g/dL N 3.2-5.2 Globulin 3.2 g/dL N 2-4 Albumin/Globulin Ratio 1.3 N 1-3 Total Bilirubin 0.50 mg/dL N 0.2-1.0 Alkaline Phosphatase 51 U/L N 34-104 Alt 42 U/L N 7-52 Ast 48 U/L High 13-39 Egfr Non- 60.6 N >60 Egfr 77.9 N >60 13 Laboratory test 07/21/2015 [facility] Ferritin < 10.0 ng/mL Low 11-307 finding [phone] Vitamin D Total 25(Oh) 27.1 ng/mL Low 30-50 Liver Function 07/21/2015 [facility] Direct 0.20 mg/ dL High 0.03-0.18 Panel [phone] Bilirubin Indirect Bilirubin 0.3 mg/dL N 0.3-1.0 CBC Auto Diff 07/21/2015 [facility] White Blood 5.4 10^3/uL N 3.5-10.8 [phone] Count Red Blood Count 4.82 10^6/uL N 4.0-5.4 Hemoglobin 13.9 g/dL N 12.0-16.0 Hematocrit 43 % N 35-47 Mean Corpuscular Volume 89 fL N 80-97 Mean Corpuscular Hemoglobin 29 pg N 27-31 Mean Corpuscular HGB Conc 32 g/dL N 31-36 Red Cell Distribution Width 14 % N 10.5-15 Platelet Count 252 10^3/uL N 150-450 Mean Platelet Volume 10 um3 N 7.4-10.4 Abs Neutrophils 3.4 10^3/uL N 1.5-7.7 Abs Lymphocytes 1.3 10^3/uL N 1.0-4.8 Abs Monocytes 0.5 10^3/uL N 0-0.8 Abs Eosinophils 0.1 10^3/uL N 0-0.6 Abs Basophils 0.1 10^3/uL N 0-0.2 Abs Nucleated RBC 0.03 10^3/uL N Granulocyte % 62.4 % N 38-83 Lymphocyte % 24.2 % Low 25-47 Monocyte % 9.5 % High 1-9 Eosinophil % 2.7 % N 0-6 Basophil % 1.2 % N 0-2 Nucleated Red Blood Cells % 0.5 N Laboratory test 09/11/2014 [facility] TSH (Thyroid 3.40 IU/mL N 0.34-5.60 finding [phone] Stimulating Horm) Comp Metabolic 09/11/2014 [facility] Sodium 136 mmol/ L N 133-145 Panel [phone] Potassium 3.3 mmol/L Low 3.5-5.0 Chloride 98 mmol/L Low 101-111 Co2 Carbon Dioxide 30 mmol/L N 22-32 Anion Gap 8 mmol/L N 2-11 Glucose 91 mg/dL N 70-100 Blood Urea Nitrogen 25 mg/dL High 6-24 Creatinine 0.81 mg/dL N 0.51-0.95 BUN/Creatinine Ratio 30.9 High 8-20 Calcium 10.2 mg/dL N 8.6-10.3 Total Protein 7.7 g/dL N 6.4-8.9 Albumin 4.6 g/dL N 3.2-5.2 Globulin 3.1 g/dL N 2-4 Albumin/Globulin Ratio 1.5 N 1-3 Total Bilirubin 0.70 mg/dL N 0.2-1.0 Alkaline Phosphatase 46 U/L N 34-104 Alt 29 U/L N 7-52 Ast 37 U/L N 13-39 Egfr Non- 67.7 N >60 Egfr 87.1 N >60 14 CBC Auto Diff 09/11/2014 [facility] White Blood 5.4 10^3/uL N 4.8-10.8 [phone] Count Red Blood Count 4.87 10^6/uL N 4.0-5.4 Hemoglobin 14.7 g/dL N 12.0-16.0 Hematocrit 44 % N 35-47 Mean Corpuscular Volume 89 fL N 80-97 Mean Corpuscular Hemoglobin 30 pg N 27-31 Mean Corpuscular HGB Conc 34 g/dL N 31-36 Red Cell Distribution Width 14 % N 10.5-15 Platelet Count 261 10^3/uL N 150-450 Mean Platelet Volume 10 um3 N 7.4-10.4 Abs Neutrophils 4.0 10^3/uL N 1.5-7.7 Abs Lymphocytes 0.9 10^3/uL Low 1.0-4.8 Abs Monocytes 0.3 10^3/uL N 0-0.8 Abs Eosinophils 0.1 10^3/uL N 0-0.6 Abs Basophils 0.1 10^3/uL N 0-0.2 Abs Nucleated RBC 0 10^3/uL N Granulocyte % 74.0 % N 38-83 Lymphocyte % 17.2 % Low 25-47 Monocyte % 6.3 % N 1-9 Eosinophil % 1.1 % N 0-6 Basophil % 1.4 % N 0-2 Nucleated Red Blood Cells % 0.1 N Laboratory test 09/11/2014 [facility] Ferritin 12.7 ng/mL N 11-307 finding [phone] Vitamin D, 25 09/11/2014 [facility] 25-Hydroxy <4.0 ng/mL N Hydroxy [phone] Vitamin D2 25-Hydroxy Vitamin D3 25 ng/mL N 25-Hydroxy Vitamin D Total 25 ng/mL N 15 Liver Function 09/11/2014 [facility] Direct 0.20 mg/ dL High 0.03-0.18 Panel [phone] Bilirubin Indirect Bilirubin 0.5 mg/dL N 0.3-1.0 Laboratory test 04/07/2014 [facility] TSH (Thyroid 2.56 IU/mL N 0.34-5.60 finding [phone] Stimulating Horm) Comp Metabolic 04/07/2014 [facility] Sodium 138 mmol/ L N 133-145 Panel [phone] Potassium 3.9 mmol/L N 3.7-5.6 Chloride 101 mmol/L N 101-111 Co2 Carbon Dioxide 30 mmol/L N 22-32 Anion Gap 7 mmol/L N 2-11 Glucose 78 mg/dL N 70-100 Blood Urea Nitrogen 20 mg/dL N 6-24 Creatinine 0.68 mg/dL N 0.51-0.95 BUN/Creatinine Ratio 29.4 High 8-20 Calcium 9.6 mg/dL N 8.6-10.3 Total Protein 7.0 g/dL N 6.4-8.9 Albumin 4.1 g/dL N 3.2-5.2 Globulin 2.9 g/dL N 2-4 Albumin/Globulin Ratio 1.4 N 1-3 Total Bilirubin 0.50 mg/dL N 0.2-1.0 Alkaline Phosphatase 45 U/L N 34-104 Alt 35 U/L N 7-52 Ast 44 U/L High 13-39 Egfr Non- 83.0 N >60 Egfr 106.8 N >60 16 Laboratory test 04/04/2013 [facility] TSH (Thyroid 2.91 0.34-5.60 finding [phone] Stimulating miu/mL Horm) Urine DIP 04/04/2013 In House Lab Leukocytes ++ Neg (607)- - Urine Nitrites neg Neg Urine pH 6 5-6 Total Protein, Urine neg Neg Urine Glucose norm Norm Urine Ketones neg Neg Urobilinogen norm Norm Urine Bilirubin neg Neg Urine Blood trace Neg Specific [place] 1.015 1.01-1.02 Comp Metabolic Panel 04/04/2013 [facility] Sodium 137 mmol/L 133-145 [phone] Potassium 3.9 mmol/L 3.5-5.0 Chloride 97 mmol/L Low 101-111 Co2 Carbon Dioxide 32.0 mmol/L 22-32 Anion Gap 8.0 mmol/L 2-11 Glucose 92 mg/dL 70-100 Blood Urea Nitrogen 20 mg/dL 6-24 Creatinine 0.80 mg/dL 0.50-1.40 BUN/Creatinine Ratio 25.0 High 8-20 Calcium 9.9 mg/dL 8.1-9.9 Total Protein 7.8 g/dL 6.2-8.1 Albumin 4.2 g/dL 3.2-5.2 Globulin 3.6 g/dL 2-4 Albumin/Globulin Ratio 1.2 1-3 Total Bilirubin 0.7 mg/dL 0.4-1.5 Alkaline Phosphatase 55 U/L 30-110 Alt 60 U/L High 14-54 Ast 66 U/L High 12-42 Egfr Non- 69.0 >60 Egfr 88.8 >60 17 Laboratory test 04/04/2013 [facility] Afp Tumor 33 ng /mL Abnormal 18 finding [phone] Marker CBC Auto Diff 04/04/2013 [facility] White Blood 4.9 4.8-0 [phone] Count 10^3/uL 0.8 Red Blood Count 5.16 10^6/uL 4.0-5.4 Hemoglobin 15.1 g/dL 12.0-16.0 Hematocrit 48 % High 35-47 Mean Corpuscular Volume 94 fL 80-97 Mean Corpuscular Hemoglobin 29 pg 27-31 Mean Corpuscular HGB Conc 31 g/dL 31-36 Red Cell Distribution Width 14 % 10.5-15 Platelet Count 260 10^3/uL 150-450 Mean Platelet Volume 10 um3 7.4-10.4 Abs Neutrophils 3.2 10^3/uL 1.5-7.7 Abs Lymphocytes 1.2 10^3/uL 1.0-4.8 Abs Monocytes 0.3 10^3/uL 0-0.8 Abs Eosinophils 0.1 10^3/uL 0-0.6 Abs Basophils 0 10^3/uL 0-0.2 Abs Nucleated RBC 0 10^3/uL Granulocyte % 66.0 % 38-83 Lymphocyte % 24.5 % Low 25-47 Monocyte % 7.2 % 1-9 Eosinophil % 1.5 % 0-6 Basophil % 0.8 % 0-2 Nucleated Red Blood Cells % 0 Laboratory test 04/04/2013 [facility] Ferritin 36 ng/ mL 11-307 finding [phone] Urine Culture And 04/04/2013 [facility] Urine Culture (SEE NOTE) 19 Sensitivities [phone] Urinalysis 04/04/2013 [facility] Urine Color [place] W/Microscopic [phone] Urine Appearance Clear Urine Specific [place] 1.019 1.010-1.030 Urine Esterase 3+ Abnormal Negative Urine Nitrate Negative Negative Urine Urobilinogen Negative E.U./dL Negative Urine Protein Negative mg/dL Negative Urine pH 6.5 5-9 Urine Blood Negative Negative Urine Ketones Negative mg/dL Negative Urine Bilirubin 1+ Abnormal Negative Urine Glucose Negative mg/dL Negative Urine WBC 1+ (<10 /hpf) None Seen Urine RBC None Seen None Seen Urine Mucus Present /lpf Absent Urine Epithelial Cells 1+ Squamous /hpf None Seen Bacteria Urine None Seen None Seen Urine Culture & 04/02/2012 [facility] M --- <SEE 20 Sensitivi [phone] NOTE> Laboratory test 04/02/2012 [facility] TSH 2.40 MIU/ ML 0.34- 21 finding [phone] 5.60 Comp Metabolic 04/02/2012 [facility] Sodium 137 mmol/ L 135-1 Panel [phone] Potassium 4.3 mmol/L 3.5-5.0 Chloride 99 mmol/L Low 101-111 Co2 (Carbon Dioxide) 31.0 mmol/L 22-32 Anion Gap 7.0 mmol/L 2-11 22 Glucose 81 mg/dL 70-100 BUN 18 mg/dL 6-24 Creatinine 0.8 mg/dL 0.50-1.40 One Over Creatinine 1.25 BUN/Creatinine Ratio 22.5 High 8-20 Calcium 9.7 mg/dL 8.1-9.9 Total Protein 7.0 GM/DL 6.2-8.1 Albumin 4.1 GM/DL 3.2-5.2 Globulin 2.9 GM/DL 2-4 Albumin/Globulin Ratio 1.4 1-3 Bilirubin Total 0.7 mg/dL 0.4-1.5 23 Alkaline Phosphatase 47 U/L 30-110 Alt (SGPT) 30 U/L 14-54 Ast (Sgot) 45 U/L High 12-42 eGFR Non- 69.2 > 60 eGFR 89.0 > 60 24 CBC Auto Diff 04/02/2012 [facility] White Blood 5.8 CUMM 4.8-10.8 [phone] Count Red Cell Count 4.72 CUMM 4.2-5.4 Hemoglobin 13.5 g/dL 12.0-16.0 Hematocrit 42 % 35-47 Mean Corpuscular Volume 88 um3 79-97 Mean Corpuscular Hemoglob 29 pg 27-31 Mean Corpuscular HGB Cone 32 g/dL 32-36 Redcell Distribution WDTH 15 % 10.5-15 Platelet Count 243 CUMM 150-450 Mean Platelet Volume 10.9 um3 High 7.4-10.4 Gran % 70.0 % 38-83 Lymph % 18.9 % Low 20-45 Mononuclear % 7.4 % 1-9 Eosinophil % 1.9 % 0-6 Basophil % 1.8 % 0-2 Abs Lymphs 1.1 1.0-4.8 Abs Mononuclear 0.4 0-0.8 Absolute Neutrophil Count 4.1 1.5-7.7 Abs Eosinophils 0.1 0-0.6 Abs Basophils 0.1 0-0.2 Laboratory 04/02/2012 [facility] Alphafetoprotein 24 ng/mL Abnormal () 25 test finding [phone] Tumor Marker Ferritin 13 NG/ML 11.0-307 Urine DIP 04/02/2012 In House Lab Leukocytes ++ Neg (607)- - Urine Nitrites neg Neg Urine pH 5 5-6 Total Protein, Urine trace Neg Urine Glucose norm Norm Urine Ketones neg Neg Urobilinogen norm Norm Urine Bilirubin neg Neg Urine Blood trace Neg Specific [place] na Low 1.01-1.02 Laboratory test 03/25/2011 [facility] PTT (Aptt) 33.8 25.15-38.53 finding [phone] PT W/Inr 03/25/2011 [facility] Inr 0.90 0.82-1.17 26 [phone] Protime 10.6 SEC 10.2-14.8 27 Comp Metabolic Panel 03/25/2011 [facility] Sodium 135 mmol/L 135-145 [phone] Potassium 3.7 mmol/L 3.5-5.0 Chloride 94 mmol/L Low 101-111 Co2 (Carbon Dioxide) 30.0 mmol/L 22-32 Anion Gap 11.0 mmol/L 2-11 28 Glucose 102 mg/dL High 70-100 BUN 7 mg/dL 6-24 Creatinine 0.7 mg/dL 0.50-1.40 One Over Creatinine 1.42 BUN/Creatinine Ratio 10.0 8-20 Calcium 9.5 mg/dL 8.1-9.9 Total Protein 8.1 GM/DL 6.2-8.1 Albumin 4.2 GM/DL 3.2-5.2 Globulin 3.9 GM/DL 2-4 Albumin/Globulin Ratio 1.1 1-3 Bilirubin Total 0.9 mg/dL 0.4-1.5 29 Alkaline Phosphatase 104 U/L 30-110 Alt (SGPT) 43 U/L 14-54 Ast (Sgot) 70 U/L High 12-42 eGFR Non- 80.9 > 60 eGFR 104.1 > 60 30 Urine DIP 03/25/2011 In House Lab Leukocytes TRACE Neg (607)- - Urine Nitrites NEG Neg Urine pH 7 High 5-6 Total Protein, Urine NEG Neg Urine Glucose NORM Norm Urine Ketones NEG Neg Urobilinogen 1 High Norm Urine Bilirubin NEG Neg Urine Blood NEG Neg Specific [place] NA Low 1.01-1.02 CBC Auto Diff 01/26/2011 [facility] White Blood 6.6 CUMM 4.8-10.8 [phone] Count Red Cell Count 4.69 CUMM 4.2-5.4 Hemoglobin 13.4 g/dL 12.0-16.0 Hematocrit 41 % 35-47 Mean Corpuscular Volume 88 um3 79-97 Mean Corpuscular Hemoglob 29 pg 27-31 Mean Corpuscular HGB Cone 33 g/dL 32-36 Redcell Distribution WDTH 18 % High 10.5-15 Platelet Count 268 CUMM 150-450 Mean Platelet Volume 10.3 um3 7.4-10.4 31 Comp Metabolic Panel 01/26/2011 [facility] Sodium 140 mmol/L 135-145 [phone] Potassium 3.9 mmol/L 3.5-5.0 Chloride 100 mmol/L Low 101-111 Co2 (Carbon Dioxide) 31.0 mmol/L 22-32 Anion Gap 9.0 mmol/L 2-11 32 Glucose 103 mg/dL High 70-100 BUN 10 mg/dL 6-24 Creatinine 0.80 mg/dL 0.50-1.40 One Over Creatinine 1.20 BUN/Creatinine Ratio 12.5 8-20 Calcium 9.6 mg/dL 8.1-9.9 Total Protein 6.8 GM/DL 6.2-8.1 Albumin 3.9 GM/DL 3.2-5.2 Globulin 2.9 GM/DL 2-4 Albumin/Globulin Ratio 1.3 1-3 Bilirubin Total 0.9 mg/dL 0.4-1.5 33 Alkaline Phosphatase 79 U/L 30-110 Alt (SGPT) 47 U/L 14-54 Ast (Sgot) 61 U/L High 12-42 eGFR Non- 69.4 > 60 eGFR 89.2 > 60 34 Laboratory test 01/26/2011 [facility] TSH 2.28 MIU/ ML 0.34-5.60 finding [phone] Lipid Profile 01/26/2011 [facility] Triglyceride 58 mg/dL 40-200 (Trig/Chol/HDL) [phone] Cholesterol 197 mg/dL Less Than 200 35 High Density Lipoprotein 101 mg/dL High 40-60 36 Cholesterol/HDL Ratio 1.95 AVERAGE 1-4.44 Low Density Lipoprotein 84 mg/dL Less Than 100 37 Manual Differential 01/26/2011 [facility] Polysegmented 73 % 38-83 [phone] Neutrophil Band Neutrophil 1 % 0-8 Lymphocyte 14 % Low 25-47 Monocyte 8 % 0-13 Eosinophil 2 % 0-6 Basophil 2 % 0-2 Absolute Neutrophil Count 4.8 RBC Morphology NORMAL Urine DIP 01/26/2011 In House Lab Leukocytes 2+ High Neg (607)- - Urine Nitrites NEG Neg Urine pH 5 5-6 Total Protein, Urine NEG Neg Urine Glucose NORM Norm Urine Ketones NEG Neg Urobilinogen NORM Norm Urine Bilirubin NEG Neg Urine Blood NEG Neg Specific [place] NA Low 1.01-1.02 CBC With Manual 10/30/2010 [facility] White Blood 7.2 CUMM 4.8-10.8 38 Diff [phone] Count Red Cell Count 4.88 CUMM 4.2-5.4 Hemoglobin 13.1 g/dL 12.0-16.0 Hematocrit 40 % 35-47 Mean Corpuscular Volume 83 um3 79-97 Mean Corpuscular Hemoglob 27 pg 27-31 Mean Corpuscular HGB Cone 33 g/dL 32-36 Redcell Distribution WDTH 24 % High 10.5-15 Platelet Count 321 CUMM 150-450 Mean Platelet Volume 9.1 um3 7.4-10.4 Polysegmented Neutrophil 76 % 38-83 Lymphocyte 14 % Low 25-47 Monocyte 4 % 0-13 Eosinophil 4 % 0-6 Basophil 2 % 0-2 Absolute Neutrophil Count 5.4 Anisocytosis SLIGHT Platelet Evaluation LARGE Laboratory test 10/30/2010 [facility] Ferritin 14 NG/ ML 11.0-307 finding [phone] Alphafetoprotein Tumor Marker 20 ng/mL Abnormal () 39 Laboratory test 10/05/2010 [facility] Clotest POSITIVE Abnormal finding [phone] Surgical 10/05/2010 [facility] Surgical 40 Pathology [phone] Pathology ---- <SEE NOTE> Hemoccult 09/10/2010 In House Lab Stool-Occult NEG Neg (607)- - Blood #1 Stool-Occult Blood #2 NEG Neg Stool-Occult Blood #3 NEG Neg Laboratory test 08/30/2010 [facility] TSH 2.27 MIU/ ML 0.34-5.60 finding [phone] Comp Metabolic 08/30/2010 [facility] Sodium 136 mmol/ L 135-145 Panel [phone] Potassium 3.5 mmol/L 3.5-5.0 Chloride 99 mmol/L Low 101-111 Co2 (Carbon Dioxide) 29.0 mmol/L 22-32 Anion Gap 8.0 mmol/L 2-11 41 Glucose 107 mg/dL High 70-100 BUN 12 mg/dL 6-24 Creatinine 0.70 mg/dL 0.50-1.40 One Over Creatinine 1.40 BUN/Creatinine Ratio 17.1 8-20 Calcium 9.5 mg/dL 8.1-9.9 Total Protein 7.7 GM/DL 6.2-8.1 Albumin 4.2 GM/DL 3.2-5.2 Globulin 3.5 GM/DL 2-4 Albumin/Globulin Ratio 1.2 1-3 Bilirubin Total 0.8 mg/dL 0.4-1.5 42 Alkaline Phosphatase 84 U/L 30-110 Alt (SGPT) 41 U/L 14-54 Ast (Sgot) 55 U/L High 12-42 eGFR Non- 80.9 > 60 eGFR 104.1 > 60 43 Laboratory 08/30/2010 [facility] Alphafetoprotein 22 ng/mL Abnormal () 44 test finding [phone] Tumor Marker CBC With 08/30/2010 [facility] White Blood Count 7.1 CUMM 4.8-1 Electronic [phone] 0.8 Diff Red Cell Count 4.67 CUMM 4.2-5.4 Hemoglobin 11.8 g/dL Low 12.0-16.0 Hematocrit 37 % 35-47 Mean Corpuscular Volume 78 um3 Low 79-97 Mean Corpuscular Hemoglob 25 pg Low 27-31 Mean Corpuscular HGB Cone 32 g/dL 32-36 Redcell Distribution WDTH 17 % High 10.5-15 Platelet Count 307 CUMM 150-450 Mean Platelet Volume 9.8 um3 7.4-10.4 Gran % 76.1 % 38-83 Lymph % 15.2 % Low 25-47 Mononuclear % 5.9 % 1-9 Eosinophil % 1.7 % 0-6 Basophil % 1.1 % 0-2 Abs Lymphs 1.1 1.0-4.8 Abs Mononuclear 0.4 0-0.8 Absolute Neutrophil Count 5.4 1.5-7.7 Abs Eosinophils 0.1 0-0.6 Abs Basophils 0.1 0-0.2 45 Iron & Iron 08/30/2010 [facility] Iron Total 25 g/ dL Low 28-170 Binding Capacity [phone] Unsaturated Iron Binding 654 g/dL Total Iron Binding Capacity 679 g/dL High 250-450 % Iron Saturation 4 % Low 15-55 Laboratory test 08/30/2010 [facility] Ferritin < 10 NG/ML Low 11.0-307 finding [phone] Vitamin B12 466 pg/mL 180-914 Laboratory test 04/21/2010 [facility] Thyroxine Free 0.61 NG/ML 0.61-1.24 finding [phone] Comp Metabolic 04/21/2010 [facility] Sodium 136 mmol/ L 135-145 Panel [phone] Potassium 4.1 mmol/L 3.5-5.0 Chloride 98 mmol/L Low 101-111 Co2 (Carbon Dioxide) 28.0 mmol/L 22-32 Anion Gap 10.0 mmol/L 2-11 46 Glucose 81 mg/dL 70-100 47 BUN 19 mg/dL 6-24 Creatinine 0.80 mg/dL 0.50-1.40 One Over Creatinine 1.20 BUN/Creatinine Ratio 23.8 High 8-20 Calcium 9.6 mg/dL 8.1-9.9 Total Protein 7.4 GM/DL 6.2-8.1 Albumin 4.2 GM/DL 3.2-5.2 Globulin 3.2 GM/DL 2-4 Albumin/Globulin Ratio 1.3 1-3 Bilirubin Total 0.9 mg/dL 0.4-1.5 48 Alkaline Phosphatase 86 U/L 30-110 Alt (SGPT) 45 U/L 14-54 Ast (Sgot) 66 U/L High 12-42 eGFR Non- 73.9 > 60 eGFR 89.4 > 60 49 Laboratory test 04/21/2010 [facility] TSH 12.38 High 0.34-5.60 finding [phone] MIU/ML Vitamin D, 25 12/10/2009 [facility] 25-Hydroxy <4.0 ng/mL () Hydroxy [phone] Vitamin D2 25-Hydroxy Vitamin D3 62 ng/mL () 25-Hydroxy Vitamin D Total 62 ng/mL () 50 Laboratory test 12/10/2009 [facility] TSH 2.97 MIU/ ML 0.34-5.60 finding [phone] CBC With Manual 12/10/2009 [facility] White Blood 9.1 CUMM 4.8-10.8 Diff [phone] Count Red Cell Count 5.14 CUMM 4.2-5.4 Hemoglobin 14.7 g/dL 12.0-16.0 Hematocrit 44 % 35-47 Mean Corpuscular Volume 86 um3 79-97 Mean Corpuscular Hemoglob 29 pg 27-31 Mean Corpuscular HGB Cone 33 g/dL 32-36 Redcell Distribution WDTH 15 % 10.5-15 Platelet Count 352 CUMM 150-450 Mean Platelet Volume 9.1 um3 7.4-10.4 Polysegmented Neutrophil 88 % High 38-83 Band Neutrophil 2 % 0-8 Lymphocyte 6 % Low 25-47 Monocyte 3 % 0-13 Basophil 1 % 0-2 Absolute Neutrophil Count 8.1 RBC Morphology NORMAL Comp Metabolic Panel 12/10/2009 [facility] Sodium 137 mmol/L 135-145 [phone] Potassium 3.4 mmol/L Low 3.5-5.0 Chloride 96 mmol/L Low 101-111 Co2 (Carbon Dioxide) 30.0 mmol/L 22-32 Anion Gap 11.0 mmol/L 2-11 51 Glucose 75 mg/dL 70-100 52 BUN 16 mg/dL 6-24 Creatinine 0.70 mg/dL 0.50-1.40 One Over Creatinine 1.40 BUN/Creatinine Ratio 22.9 High 8-20 Calcium 9.7 mg/dL 8.1-9.9 53 Total Protein 7.1 GM/DL 6.2-8.1 Albumin 4.2 GM/DL 3.2-5.2 Globulin 2.9 GM/DL 2-4 Albumin/Globulin Ratio 1.4 1-3 Bilirubin Total 0.8 mg/dL 0.4-1.5 54 Alkaline Phosphatase 83 U/L 30-110 Alt (SGPT) 45 U/L 14-54 Ast (Sgot) 63 U/L High 12-42 eGFR Non- 86.2 > 60 eGFR 104.3 > 60 55 Laboratory test 07/01/2009 [facility] Troponin-I (TnI ) 0.01 NG/ML 56 finding [phone] CMP Stat 07/01/2009 [facility] Sodium 133 mmol/L Low 135-0 [phone] 45 Potassium 3.5 mmol/L 3.5-5.0 Chloride 94 mmol/L Low 101-111 Co2 (Carbon Dioxide) 30.0 mmol/L 22-32 Anion Gap 9.0 mmol/L 2-11 57 Glucose 84 mg/dL 70-100 58 BUN 19 mg/dL 6-24 Creatinine 0.80 mg/dL 0.50-1.40 One Over Creatinine 1.20 BUN/Creatinine Ratio 23.8 High 8-20 Calcium 10.0 mg/dL High 8.1-9.9 59 Total Protein 7.3 GM/DL 6.2-8.1 Albumin 4.0 GM/DL 3.2-5.2 Globulin 3.3 GM/DL 2-4 Albumin/Globulin Ratio 1.2 1-3 Bilirubin Total 1.1 mg/dL 0.4-1.5 60 Alkaline Phosphatase 75 U/L 30-110 Alt (SGPT) 39 U/L 14-54 Ast (Sgot) 52 U/L High 12-42 eGFR Non- 73.9 > 60 eGFR 89.4 > 60 61 CBC With 07/01/2009 [facility] White Blood 8.1 CUMM 4.8-10.8 Electronic Diff [phone] Count Stat Red Cell Count 5.60 CUMM High 4.2-5.4 Hemoglobin 15.7 g/dL 12.0-16.0 Hematocrit 48 % High 35-47 Mean Corpuscular Volume 86 um3 79-97 Mean Corpuscular Hemoglob 28 pg 27-31 Mean Corpuscular HGB Cone 33 g/dL 32-36 Redcell Distribution WDTH 17 % High 10.5-15 Platelet Count 235 CUMM 150-450 Mean Platelet Volume 8.8 um3 7.4-10.4 Gran % 78.0 % 38-83 Lymph % 12.6 % Low 25-47 Mononuclear % 7.4 % 1-9 Eosinophil % 0.6 % 0-6 Basophil % 1.4 % 0-2 Abs Lymphs 1.0 1.0-4.8 Abs Mononuclear 0.6 0-0.8 Absolute Neutrophil Count 6.3 1.5-7.7 Abs Eosinophils 0 0-0.6 Abs Basophils 0.1 0-0.2 62 Urine DIP 06/03/2009 In House Lab Leukocytes ++ Neg (607)- - Urine Nitrites NEG Neg Urine pH 8 High 5-6 Total Protein, Urine TRACE Neg Urine Glucose NORM Norm Urine Ketones NEG Neg Urobilinogen NORM Norm Urine Bilirubin NEG Neg Urine Blood NEG Neg Specific [place] N/A Low 1.01-1.02 Vitamin D.25 05/25/2009 [facility] 25-Hydroxy Vitamin <4.0 ng/mL () Hydroxy [phone] D2 25-Hydroxy Vitamin D3 54 ng/mL () 25-Hydroxy Vitamin D Total 54 ng/mL () 63 Laboratory 05/25/2009 [facility] TSH 4.78 0.34- 5.60 test finding [phone] MIU/ML Laboratory 05/25/2009 [facility] Alphafetoprotein 22 Abnormal () 64 test finding [phone] Tumor Marker ng/mL Comp 05/25/2009 [facility] Sodium 136 135-145 Metabolic [phone] mmol/L Panel Potassium 3.8 mmol/L 3.5-5.0 Chloride 100 mmol/L Low 101-111 Co2 (Carbon Dioxide) 29.0 mmol/L 22-32 Anion Gap 7.0 mmol/L 2-11 65 Glucose 98 mg/dL 70-100 66 BUN 12 mg/dL 6-24 Creatinine 0.70 mg/dL 0.50-1.40 One Over Creatinine 1.40 BUN/Creatinine Ratio 17.1 8-20 Calcium 9.5 mg/dL 8.1-9.9 67 Total Protein 7.1 GM/DL 6.2-8.1 Albumin 3.9 GM/DL 3.2-5.2 Globulin 3.2 GM/DL 2-4 Albumin/Globulin Ratio 1.2 1-3 Bilirubin Total 0.7 mg/dL 0.4-1.5 68 Alkaline Phosphatase 84 U/L 30-110 Alt (SGPT) 48 U/L 14-54 Ast (Sgot) 68 U/L High 12-42 eGFR Non- 86.5 > 60 eGFR 104.6 > 60 69 CBC With Manual 05/25/2009 [facility] White Blood 5.9 CUMM 4.8-10.8 Diff [phone] Count Red Cell Count 5.30 CUMM 4.2-5.4 Hemoglobin 14.3 g/dL 12.0-16.0 Hematocrit 44 % 35-47 Mean Corpuscular Volume 84 um3 79-97 Mean Corpuscular Hemoglob 27 pg 27-31 Mean Corpuscular HGB Cone 32 g/dL 32-36 Redcell Distribution WDTH 21 % High 10.5-15 Platelet Count 291 CUMM 150-450 Mean Platelet Volume 9.8 um3 7.4-10.4 Polysegmented Neutrophil 67 % 38-83 Lymphocyte 21 % Low 25-47 Monocyte 2 % 0-13 Eosenophil 2 % 0-6 Basophil 1 % 0-2 Atypical Lymph 7 % High 0-6 Absolute Neutrophil Count 3.9 Anisocytosis SLIGHT Poikilocytosis SLIGHT Polychromasia SLIGHT Laboratory test 05/06/2009 [facility] Urine Culture GROUP D 70 finding [phone] Sensitivi ENTEROCO <SEE NOTE> Urine Culture 05/06/2009 [facility] Ampicillin <=2 S Sensitivities [phone] Ciprofloxacin 1 S Nitrofurantoin <=16 S Levofloxacin 2 S Penicillin 2 S Tetracycline <=1 S Tigecycline <=0.12 S Vancomycin 1 S Urine DIP 05/06/2009 In House Lab Leukocytes ++ Neg (607)- - Urine Nitrites NEG Neg Urine pH 7 High 5-6 Total Protein, Urine NEG Neg Urine Glucose NORM Norm Urine Ketones NEG Neg Urobilinogen NORM Norm Urine Bilirubin NEG Neg Urine Blood TRACE Neg Specific [place] N/A Low 1.01-1.02 Laboratory test 08/13/2008 [facility] TSH 3.98 0.34-5.60 finding [phone] MIU/ML Blood Culture 07/07/2008 [facility] Blood NG5 71 , 72 [phone] Culture CMP Stat 07/07/2008 [facility] Sodium 130 mmol/L Low 135-145 [phone] Potassium 3.0 mmol/L Low 3.5-5.0 Chloride 97 mmol/L Low 101-111 Co2 (Carbon Dioxide) 27.0 mmol/L 22-32 Anion Gap 6.0 mmol/L 2-11 73 Glucose 88 mg/dL 70-100 74 BUN 21 mg/dL 6-24 Creatinine 0.60 mg/dL 0.50-1.40 One Over Creatinine 1.60 BUN/Creatinine Ratio 35.0 High 8-20 Calcium 8.2 mg/dL 8.1-9.9 75 Total Protein 6.2 GM/DL 6.2-8.1 Albumin 2.8 GM/DL Low 3.2-5.2 Globulin 3.4 GM/DL 2-4 Albumin/Globulin Ratio 0.8 Low 1-3 Bilirubin Total 1.3 mg/dL 0.4-1.5 Alkaline Phosphatase 56 U/L 30-110 Alt (SGPT) 43 U/L 14-54 Ast (Sgot) 53 U/L High 12-42 CBC With Manual 07/07/2008 [facility] White Blood 10.4 CUMM 4.8-10.8 Diff [phone] Count Red Cell Count 4.76 CUMM 4.2-5.4 Hemoglobin 13.8 g/dL 12.0-16.0 Hematocrit 40 % 35-47 Mean Corpuscular Volume 83 um3 79-97 Mean Corpuscular Hemoglob 29 pg 27-31 Mean Corpuscular HGB Cone 35 g/dL 32-36 Redcell Distribution WDTH 14 % 10.5-15 Platelet Count 330 CUMM 150-450 Mean Platelet Volume 8.8 um3 7.4-10.4 Polysegmented Neutrophil 80 % 38-83 Band Neutrophil 1 % 0-8 Lymphocyte 5 % Low 25-47 Monocyte 13 % 0-13 Atypical Lymph 1 % 0-6 Absolute Neutrophil Count 8.4 Anisocytosis SLIGHT Polychromasia SLIGHT Laboratory test 07/07/2008 [facility] BNP Evaluatr 36.7 pg/mL 7.5-100 finding [phone] Laboratory test 06/02/2008 [facility] TSH 4.65 MIU/ ML 0.34-5.60 finding [phone] Comp Metabolic 06/02/2008 [facility] Sodium 138 mmol/ L 135-145 Panel [phone] Potassium 3.6 mmol/L 3.5-5.0 Chloride 98 mmol/L Low 101-111 Co2 (Carbon Dioxide) 33.0 mmol/L High 22-32 Anion Gap 7.0 mmol/L 2-11 76 Glucose 94 mg/dL 70-100 77 BUN 17 mg/dL 6-24 Creatinine 0.75 mg/dL 0.50-1.40 One Over Creatinine 1.30 BUN/Creatinine Ratio 22.7 High 8-20 Calcium 9.7 mg/dL 8.1-9.9 78 Total Protein 6.7 GM/DL 6.2-8.1 Albumin 3.7 GM/DL 3.2-5.2 Globulin 3.0 GM/DL 2-4 Albumin/Globulin Ratio 1.2 1-3 Bilirubin Total 0.9 mg/dL 0.4-1.5 Alkaline Phosphatase 59 U/L 30-110 Alt (SGPT) 48 U/L 14-54 Ast (Sgot) 69 U/L High 12-42 Laboratory 06/02/2008 [facility] Alphafetoprotein 22 ng/mL Abnormal () 79 test finding [phone] Tumor Marker CBC With 06/02/2008 [facility] White Blood Count 6.2 CUMM 4.8-1 Electronic [phone] 0.8 Diff Red Cell Count 5.04 CUMM 4.2-5.4 Hemoglobin 14.6 g/dL 12.0-16.0 Hematocrit 43 % 35-47 Mean Corpuscular Volume 85 um3 79-97 Mean Corpuscular Hemoglob 29 pg 27-31 Mean Corpuscular HGB Cone 34 g/dL 32-36 Redcell Distribution WDTH 15 % 10.5-15 Platelet Count 282 CUMM 150-450 Mean Platelet Volume 9.5 um3 7.4-10.4 Gran % 64.3 % 38-83 Lymph % 23.8 % Low 25-47 Mononuclear % 8.7 % 1-9 Eosinophil % 2.3 % 0-6 Basophil % 0.9 % 0-2 Abs Lymphs 1.5 1.0-4.8 Abs Mononuclear 0.5 0-0.8 Absolute Neutrophil Count 4.0 1.5-7.7 Abs Eosinophils 0.1 0-0.6 Abs Basophils 0.1 0-0.2 Urine DIP 05/28/2008 In House Lab Leukocytes trace Neg (607)- - Urine Nitrites neg Neg Urine pH 5 5-6 Total Protein, Urine neg Neg Urine Glucose norm Norm Urine Ketones neg Neg Urobilinogen norm Norm Urine Bilirubin neg Neg Urine Blood neg Neg Specific [place] n/a Low 1.01-1.02 Laboratory test 08/31/2007 [facility] TSH 4.81 MIU/ ML 0.34-5.60 finding [phone] Laboratory test 06/30/2007 [facility] TSH 3.37 MIU/ ML 0.34-5.60 finding [phone] Free Thyroxine 0.70 NG/ML 0.61-1.24 80 Thyroid 06/30/2007 [facility] Thyroglobulin 20 U/ML < 60 Autoantibodies [phone] Autoantibodies Thyroid Peroxidase Autoab 106 U/ML High < 60 81 GC/Chlamydia Dna 04/26/2007 [facility] CHL By NEGATIVE Negative 82 Probe [phone] Aptima GC By Aptima NEGATIVE Negative 83 CBC With 04/26/2007 [facility] White Blood 6.1 CUMM 4.8-10.8 Electronic Diff [phone] Count Abs Basophils 0 0-0.2 Abs Eosinophils 0.1 0-0.6 Absolute Neutrophil Count 4.6 1.5-7.7 Abs Lymphs 1.1 1.0-4.8 Abs Mononuclear 0.4 0-0.8 Basophil % 0.5 % 0-2 Hematocrit 48 % High 35-47 84 Hemoglobin 16.2 g/dL High 12.0-16.0 Eosinophil % 1.1 % 0-6 Gran % 74.3 % 38-83 Lymph % 18.0 % Low 20-45 Mean Corpuscular HGB Cone 34 g/dL 32-36 Mean Corpuscular Hemoglob 30 pg 27-31 Mean Corpuscular Volume 89 um3 79-97 Mean Platelet Volume 10.3 um3 7.4-10.4 Mononuclear % 6.1 % 1-9 Platelet Count 275 CUMM 150-450 Red Cell Count 5.39 CUMM 4.2-5.4 Redcell Distribution WDTH 15 % 10.5-15 Comp Metabolic 04/26/2007 [facility] One Over Creatinine 1.25 Panel [phone] Anion Gap 8.0 mmol/L 2-11 85 Albumin/Globulin Ratio 1.4 1-3 Albumin 4.2 GM/DL 3.2-5.2 Alkaline Phosphatase 65 U/L 30-110 Alt (SGPT) 58 U/L High 14-54 Ast (Sgot) 66 U/L High 12-42 BUN 15 mg/dL 6-24 Calcium 9.6 mg/dL 8.7-10.2 Chloride 101 mmol/L 101-111 Co2 (Carbon Dioxide) 32.0 mmol/L 22-32 Globulin 3.0 GM/DL 2-4 Glucose 91 mg/dL 70-105 Potassium 3.5 mmol/L 3.5-5.0 Sodium 141 mmol/L 135-145 Bilirubin Total 1.1 mg/dL 0.4-1.5 Total Protein 7.2 GM/DL 6.2-8.1 BUN/Creatinine Ratio 18.8 8-20 Creatinine 0.8 mg/dL 0.5-1.4 Laboratory 04/26/2007 [facility] Alphafetoprotein 27.1 High <6.0 86 test finding [phone] Tumor Marker NG/ML TSH 7.17 MIU/ML High 0.34-5.60 Vad 04/26/2007 [facility] Vad Final NONREACTIVE Nonreactive 87 [phone] Laboratory test 04/26/2007 [facility] RPR NON REACTIVE Nonreactive finding [phone] Free Thyroxine 0.53 NG/ML Low 0.61-1.24 88 Urine DIP 04/26/2007 In House Lab Leukocytes NEG Neg (607)- - Urine Nitrites NEG Neg Urine pH 6-7 5-6 Total Protein, Urine NEG Neg Urine Glucose NEG Norm Urine Ketones NEG Neg Urobilinogen NEG Norm Urine Bilirubin NEG Neg Urine Blood NEG Neg Specific [place] NA Low 1.01-1.02 Urine Culture And 01/15/2007 [facility] Urine Culture MANY 89 Sensitivites [phone] Sensitivi [ESCHERICHI <SEE NOTE> Gram Neg Kyle 01/15/2007 [facility] Ampicillin 4 S Sensitivities [phone] Amikacin <=2 S Ciprofloxacin <=0.25 S Cefotetan <=4 S Ceftriaxone <=1 S Cefazolin <=4 S Nitrofurantoin <=16 S Gentamicin <=1 S Imipenem <=1 S Levofloxacin <=0.25 S Cefuroxime 4 S Trimeth-Sulfa <=20 S Ceftazidime <=1 S Piperacillin/Tazobactam <=4 S Urine DIP 01/15/2007 In House Lab Leukocytes + Neg (607)- - Urine Nitrites pos Neg Urine pH 5 5-6 Total Protein, Urine neg Neg Urine Glucose norm Norm Urine Ketones neg Neg Urobilinogen nor, Norm Urine Bilirubin radha Neg Urine Blood trace Neg Specific [place] n/a Low 1.01-1.02 Laboratory test 04/28/2006 [facility] TSH 4.26 MIU/ ML 0.34-5.60 finding [phone] Urine DIP 04/28/2006 In House Lab Leukocytes NEG Neg (607)- - Urine Nitrites NEG Neg Urine pH 5 5-6 Total Protein, Urine NL Neg Urine Glucose NL Norm Urine Ketones NL Neg Urobilinogen NL Norm Urine Bilirubin NL Neg Urine Blood NL Neg Specific [place] N/A Low 1.01-1.02 Laboratory test 04/21/2006 [facility] Ammonia cancelled finding [phone] Lipid Profile 04/21/2006 [facility] Cholesterol/H 2.05 AVERAGE 1-4.44 (Trig/Chol/HDL) [phone] DL Ratio Cholesterol 205 mg/dL High Less Than 200 90 Triglyceride 74 mg/dL 40-200 High Density Lipoprotein 100 mg/dL High 40-60 91 Low Density Lipoprotein 90 mg/dL Less Than 100 92 Laboratory 04/21/2006 [facility] Alphafetoprotein 25.5 High <6.0 93 test finding [phone] Tumor Marker NG/ML CBC With 04/21/2006 [facility] White Blood Count 6.4 CUMM 4.8-10. Electronic [phone] Diff Abs Basophils 0 0-0.2 Abs Eosinophils 0.1 0-0.6 Absolute Neutrophil Count 4.1 1.5-7.7 Abs Lymphs 1.5 1.0-4.8 Abs Mononuclear 0.6 0-0.8 Basophil % 0.7 % 0-2 Hematocrit 49 % High 35-47 Hemoglobin 16.7 g/dL High 12.0-16.0 Eosinophil % 1.7 % 0-6 Gran % 65.1 % 38-83 Lymph % 22.8 % 20-45 Mean Corpuscular HGB Cone 34 g/dL 32-36 Mean Corpuscular Hemoglob 30 pg 27-31 Mean Corpuscular Volume 90 um3 79-97 Mean Platelet Volume 10.3 um3 7.4-10.4 Mononuclear % 9.7 % High 1-9 Platelet Count 276 CUMM 150-450 Red Cell Count 5.51 CUMM High 4.2-5.4 Redcell Distribution WDTH 14 % 10.5-15 Laboratory test 04/21/2006 [facility] Alphafetoprotein see below finding [phone] Maternal Comp Metabolic 04/21/2006 [facility] One Over Creatinine 1.11 Panel [phone] Anion Gap 6.0 mmol/L 2-11 94 Albumin/Globulin Ratio 1.1 1-3 Albumin 4.1 GM/DL 3.2-5.2 Alkaline Phosphatase 58 U/L 30-110 Alt (SGPT) 65 U/L High 14-54 Ast (Sgot) 79 U/L High 12-42 BUN 16 mg/dL 6-24 Calcium 9.9 mg/dL 8.7-10.2 Chloride 99 mmol/L Low 101-111 Co2 (Carbon Dioxide) 33.0 mmol/L High 22-32 Globulin 3.9 GM/DL 2-4 Glucose 93 mg/dL 70-105 Potassium 3.7 mmol/L 3.5-5.0 Sodium 138 mmol/L 135-145 Bilirubin Total 1.0 mg/dL 0.4-1.5 Total Protein 8.0 GM/DL 6.2-8.1 BUN/Creatinine Ratio 17.8 8-20 Creatinine 0.9 mg/dL 0.5-1.4 Urine DIP 04/25/2005 In House Lab Leukocytes NEG Neg (607)- - Urine Nitrites NEG Neg Urine pH 5 5-6 Total Protein, Urine NEG Neg Urine Glucose NORM Norm Urine Ketones NEG Neg Urobolinogen NORM Norm Urine Bilirubin NEG Neg Urine Blood NEG Neg Specific [place] NA Low 1.01-1.02 Comp Metabolic 04/18/2005 [facility] One Over Creatinine 1.11 95 Panel [phone] Anion Gap 6.0 mmol/L 2-11 96 Albumin/Globulin Ratio 1.3 1-3 Albumin 3.9 GM/DL 3.2-5.2 Alkaline Phosphatase 51 U/L 30-110 Alt (SGPT) 48 U/L 14-54 Ast (Sgot) 58 U/L High 12-42 BUN 15 mg/dL 6-24 Calcium 9.9 mg/dL 8.7-10.2 Chloride 100 mmol/L Low 101-111 Co2 (Carbon Dioxide) 33.0 mmol/L High 22-32 Globulin 3.0 GM/DL 2-4 Glucose 84 mg/dL 70-105 Potassium 4.0 mmol/L 3.5-5.0 Sodium 139 mmol/L 135-145 Bilirubin Total 0.9 mg/dL 0.4-1.5 Total Protein 6.9 GM/DL 6.2-8.1 BUN/Creatinine Ratio 16.7 8-20 Creatinine 0.9 mg/dL 0.5-1.4 Lipid Profile 04/18/2005 [facility] Cholesterol 195 mg/dL Less 97 (Trig/Chol/HDL) [phone] Than 200 Triglyceride 103 mg/dL 40-200 High Density Lipoprotein 85 mg/dL High 40-60 98 Low Density Lipoprotein 89 mg/dL Less Than 100 99 Cholesterol/HDL Ratio 2.29 AVERAGE 1-4.44 CBC With 04/18/2005 [facility] White Blood 5.4 CUMM 4.8-10.8 Electronic Diff [phone] Count Hematocrit 47 % 35-47 Hemoglobin 16.0 g/dL 12.0-16.0 Mean Corpuscular HGB Cone 34 g/dL 32-36 Mean Corpuscular Hemoglob 31 pg 27-31 Mean Corpuscular Volume 91 um3 79-97 Mean Platelet Volume 10.5 um3 High 7.4-10.4 Platelet Count 254 CUMM 150-450 Red Cell Count 5.21 CUMM 4.2-5.4 Redcell Distribution WDTH 14 % 10.5-15 Laboratory 04/18/2005 [facility] Alphafetoprotein 26.3 High <6.0 100 test finding [phone] Tumor Marker NG/ML CBC With 04/18/2005 [facility] White Blood Count 5.4 CUMM 4.8-10. Manual Diff [phone] Absolute Neutrophil Count 3.1 Atypical Lymph 1 % 0-6 Anisocytosis SLIGHT Hematocrit 47 % 35-47 Hemoglobin 16.0 g/dL 12.0-16.0 Eosenophil 1 % 0-6 Lymphocyte 27 % 5-47 Mean Corpuscular HGB Cone 34 g/dL 32-36 Mean Corpuscular Hemoglob 31 pg 27-31 Mean Corpuscular Volume 91 um3 79-97 Monocyte 13 % 0-13 Mean Platelet Volume 10.5 um3 High 7.4-10.4 Platelet Count 254 CUMM 150-450 Polysegmented Neutrophil 58 % 38-83 Red Cell Count 5.21 CUMM 4.2-5.4 Redcell Distribution WDTH 14 % 10.5-15 CBC With 04/23/2004 [facility] White Blood 6.8 CUMM 4.8-10.8 Electronic Diff [phone] Count Abs Basophils 0 0-0.2 Abs Eosinophils 0.1 0-0.6 Abs Grans 4.8 1.5-7.7 Abs Lymphs 1.3 1.0-4.8 Abs Mononuclear 0.5 0-0.8 Basophil % 0.6 % 0-2 Hematocrit 48 % High 35-47 Hemoglobin 16.2 g/dL High 12.0-16.0 Eosinophil % 1.6 % 0-6 Gran % 71.0 % 38-83 Lymph % 19.5 % Low 20-45 Mean Corpuscular HGB Cone 34 g/dL 32-36 Mean Corpuscular Hemoglob 31 pg 27-31 Mean Corpuscular Volume 92 um3 79-97 Mean Platelet Volume 10.7 um3 High 7.4-10.4 Mononuclear % 7.3 % 1-9 Platelet Count 220 CUMM 150-450 Red Cell Count 5.24 CUMM 4.2-5.4 Redcell Distribution WDTH 14 % 10.5-15 Comp Metabolic Panel 04/23/2004 [facility] Anion Gap 5 mmol/L 2-11 101 [phone] Albumin/Globulin Ratio 1.3 1-3 Albumin 3.9 GM/DL 3.2-5.2 Alkaline Phosphatase 46 U/L 30-110 Alt (SGPT) 51 U/L 14-54 Ast (Sgot) 56 U/L High 12-42 BUN 10 mg/dL 6-24 Calcium 9.6 mg/dL 8.7-10.2 Chloride 101 mmol/L 101-111 Co2 (Carbon Dioxide) 32 mmol/L 22-32 Creatinine 0.8 mg/dL 0.5-1.4 Globulin 3.0 GM/DL 2-4 Glucose 68 mg/dL Low 70-105 Potassium 3.6 mmol/L 3.5-5.0 Sodium 138 mmol/L 135-145 Bilirubin Total 0.8 mg/dL 0.4-1.5 Total Protein 6.9 GM/DL 6.2-8.1 BUN/Creatinine Ratio 12.5 8-20 Lipid Profile 04/23/2004 [facility] Cholesterol 203 mg/dL High Less 102 (Trig/Chol/HDL) [phone] Than 200 Triglyceride 89 mg/dL 40-200 High Density Lipoprotein 91 mg/dL High 40-60 103 Low Density Lipoprotein 94 mg/dL Less Than 100 104 Cholesterol/HDL Ratio 2.23 AVERAGE 1-4.44 Liver Function 04/23/2004 [facility] Bilirubin Direct 0.1 mg/dL 0.1-0.5 Panel [phone] Indirect Bilirubin 0.7 mg/dL 0.1-0.75 Laboratory test 04/23/2004 [facility] Alphafetoprotein 23.6 High <6.0 finding [phone] Maternal Urine DIP 04/23/2004 In House Lab Leukocytes 2+ High Neg (607)- - Urine Nitrites neg Neg Urine pH 5 5-6 Total Protein, Urine nl Neg Urine Glucose nl Norm Urine Ketones nl Neg Urobolinogen nl Norm Urine Bilirubin nl Neg Urine Blood nl Neg Specific [place] n/a Low 1.01-1.02 Urine DIP 11/11/2002 In House Lab Leukocytes NEG Neg (607)- - Urine Nitrites NEG Neg Urine pH 5 5-6 Total Protein, Urine NL Neg Urine Glucose NL Norm Urine Ketones NL Neg Urobolinogen NL Norm Urine Bilirubin NL Neg Urine Blood NL Neg Specific [place] N/A Low 1.01-1.02 1 Because ethnic data is not always readily available, this report includes an eGFR for both -Americans and non- Americans. The National Kidney Disease Education Program (NKDEP) does not endorse the use of the MDRD equation for patients that are not between the ages of 18 and 70, are , have extremes of body size, muscle mass, or nutritional status, or are non- or non-. According to the National Kidney Foundation, irrespective of diagnosis, the stage of the disease is based on the level of kidney function: Stage Description GFR(mL/min/1.73 m(2)) 1 Kidney damage with normal or decreased GFR 90 2 Kidney damage with mild decrease in GFR 60-89 3 Moderate decrease in GFR 30-59 4 Severe decrease in GFR 15-29 5 Kidney failure <15 (or dialysis) 2 Because ethnic data is not always readily available, this report includes an eGFR for both -Americans and non- Americans. The National Kidney Disease Education Program (NKDEP) does not endorse the use of the MDRD equation for patients that are not between the ages of 18 and 70, are , have extremes of body size, muscle mass, or nutritional status, or are non- or non-. According to the National Kidney Foundation, irrespective of diagnosis, the stage of the disease is based on the level of kidney function: Stage Description GFR(mL/min/1.73 m(2)) 1 Kidney damage with normal or decreased GFR 90 2 Kidney damage with mild decrease in GFR 60-89 3 Moderate decrease in GFR 30-59 4 Severe decrease in GFR 15-29 5 Kidney failure <15 (or dialysis) 3 Troponin-I testing on Plasma Separator Tubes (PST) has a known false positive rate of 0.20-0.40%. All positive troponins reflex immediate secondary confirmatory testing. 4 SEE RESULT BELOW Name: BONNIE FORTE Mireille : [address]: Kajal Gomez MD Acct: [id number] Unit: [id number] AGE: 88 Location: [facility] Re07/19/18 SEX: F Status: REG REF SPEC: [id number] CECY: 07/19/18 [facility] DR: Kajal Gomez MD REQ: [id number] RECD: 07/19/18 STATUS: COMP _ SOURCE: URINE SPDESC: ORDERED: Urine Culture COMMENTS: [id number] Urine Source: Clean Catch Procedure Result Reported Site Urine Culture Final 07/21/18- 916 ML Organism 1 KLEBSIELLA PNEUMONIAE [place] Count 25-50,000 (Moderate) CFU/ML 1. KLEBSIELLA PNEUMONIAE M.I.C. RX --------- ------ Ampicillin R Cefazolin <=4 S Cefepime <=1 S Ceftriaxone <=1 S Ciprofloxacin <=0.25 S Gentamicin <=1 S Levofloxacin <=0.12 S Meropenem <=0.25 S Nitrofurantoin <=16 S Tetracycline <=1 S Pipercillin/Tazobactam <=4 S Trimethoprim/Sulfamethoxazole <=20 S Amoxicillin/Clavulanic Acid <=2 S Aztreonam <=1 S Contact the Microbiology Department for any additional antibiotic reporting. * ML - Main Lab . END OF REPORT DEPARTMENT OF PATHOLOGY, [address] [place] [address] Reed Gentile M.D. Director [facility] # [id number] 5 [id number] Because ethnic data is not always readily available, this report includes an eGFR for both -Americans and non- Americans. The National Kidney Disease Education Program (NKDEP) does not endorse the use of the MDRD equation for patients that are not between the ages of 18 and 70, are , have extremes of body size, muscle mass, or nutritional status, or are non- or non-. According to the National Kidney Foundation, irrespective of diagnosis, the stage of the disease is based on the level of kidney function: Stage Description GFR(mL/min/1.73 m(2)) 1 Kidney damage with normal or decreased GFR 90 2 Kidney damage with mild decrease in GFR 60-89 3 Moderate decrease in GFR 30-59 4 Severe decrease in GFR 15-29 5 Kidney failure <15 (or dialysis) 9 [id number] 11 Because ethnic data is not always readily available, this report includes an eGFR for both -Americans and non- Americans. The National Kidney Disease Education Program (NKDEP) does not endorse the use of the MDRD equation for patients that are not between the ages of 18 and 70, are , have extremes of body size, muscle mass, or nutritional status, or are non- or non-. According to the National Kidney Foundation, irrespective of diagnosis, the stage of the disease is based on the level of kidney function: Stage Description GFR(mL/min/1.73 m(2)) 1 Kidney damage with normal or decreased GFR 90 2 Kidney damage with mild decrease in GFR 60-89 3 Moderate decrease in GFR 30-59 4 Severe decrease in GFR 15-29 5 Kidney failure <15 (or dialysis) 12 [id number] 13 Because ethnic data is not always readily available, this report includes an eGFR for both -Americans and non- Americans. The National Kidney Disease Education Program (NKDEP) does not endorse the use of the MDRD equation for patients that are not between the ages of 18 and 70, are , have extremes of body size, muscle mass, or nutritional status, or are non- or non-. According to the National Kidney Foundation, irrespective of diagnosis, the stage of the disease is based on the level of kidney function: Stage Description GFR(mL/min/1.73 m(2)) 1 Kidney damage with normal or decreased GFR 90 2 Kidney damage with mild decrease in GFR 60-89 3 Moderate decrease in GFR 30-59 4 Severe decrease in GFR 15-29 5 Kidney failure <15 (or dialysis) 14 Because ethnic data is not always readily available, this report includes an eGFR for both -Americans and non- Americans. The National Kidney Disease Education Program (NKDEP) does not endorse the use of the MDRD equation for patients that are not between the ages of 18 and 70, are , have extremes of body size, muscle mass, or nutritional status, or are non- or non-. According to the National Kidney Foundation, irrespective of diagnosis, the stage of the disease is based on the level of kidney function: Stage Description GFR(mL/min/1.73 m(2)) 1 Kidney damage with normal or decreased GFR 90 2 Kidney damage with mild decrease in GFR 60-89 3 Moderate decrease in GFR 30-59 4 Severe decrease in GFR 15-29 5 Kidney failure <15 (or dialysis) 15 REFERENCE VALUE 25-HYDROXY D TOTAL (D2+D3) Optimum levels in the healthy population are 20-50, patients with bone disease may benefit from higher levels within this range. Test Performed by: [address] [address] R D Intern: Norman Mackey II, M.D., Ph.D. 16 Because ethnic data is not always readily available, this report includes an eGFR for both -Americans and non- Americans. The National Kidney Disease Education Program (NKDEP) does not endorse the use of the MDRD equation for patients that are not between the ages of 18 and 70, are , have extremes of body size, muscle mass, or nutritional status, or are non- or non-. According to the National Kidney Foundation, irrespective of diagnosis, the stage of the disease is based on the level of kidney function: Stage Description GFR(mL/min/1.73 m(2)) 1 Kidney damage with normal or decreased GFR 90 2 Kidney damage with mild decrease in GFR 60-89 3 Moderate decrease in GFR 30-59 4 Severe decrease in GFR 15-29 5 Kidney failure <15 (or dialysis) 17 Because ethnic data is not always readily available, this report includes an eGFR for both -Americans and non- Americans. The National Kidney Disease Education Program (NKDEP) does not endorse the use of the MDRD equation for patients that are not between the ages of 18 and 70, are , have extremes of body size, muscle mass, or nutritional status, or are non- or non-. According to the National Kidney Foundation, irrespective of diagnosis, the stage of the disease is based on the level of kidney function: Stage Description GFR(mL/min/1.73 m(2)) 1 Kidney damage with normal or decreased GFR 90 2 Kidney damage with mild decrease in GFR 60-89 3 Moderate decrease in GFR 30-59 4 Severe decrease in GFR 15-29 5 Kidney failure <15 (or dialysis) 18 -- REFERENCE VALUE -- <6.0 Reference values are for non- subjects only; production of AFP elevates values in women. The testing method is an immunoenzymatic assay manufactured by [employer] and performed on the nxtControl DxI 800. Values obtained with different assay methods or kits may be different and cannot be used interchangeably. Test results cannot be interpreted as absolute evidence for the presence or absence of malignant disease. Alpha-Fetoprotein values are not interpretable in females for the investigation of malignant disease. Test Performed by: [address] [address] R D Intern: Pb Chaparro III, M.D. 19 RUN DATE: 04/06/13 [facility] LIVE PAGE 1 RUN TIME: [address] [place] [id number] Specimen Inquiry Name: BONNIE FORTE : [address]: Kajal Gomez MD Acct: [id number] Unit: [id number] AGE: 82 Location: [facility] Re04/04/13 SEX: F Status: REG REF SPEC: [id number] CECY: 04/04/13-1040 [facility] DR: Kajal Gomez MD REQ: [id number] RECD: 04/04/13-1218 STATUS: COMP _ SOURCE: URINE SPDESC: ORDERED: Urine Culture QUERIES: Medent Number [id number] Procedure Result Verified Site Urine Culture Final 04/06/13- 957 ML Organism 1 NORMAL DAPHNEY [place] Count 10-25,000 (Moderate) CFU/ML END OF REPORT * ML=Testing performed at Main Lab DEPARTMENT OF PATHOLOGY, [address] [place] [address] [facility] Permit #[id number] RUN DATE: 04/04/12 [facility] NMI LIVE PAGE 1 RUN TIME: 922 Specimen Inquiry RUN USER: INTERFACE Name: BONNIE FORTE Status: REG REF Re04/02/12 Age/Sex: 81/F Unit#: [id number] Location: [facility]. : 34 SPEC #: [id number] CECY: 04/02/12 STATUS: COMP REQ #: [id number] RECD: 04/02/12 [facility] DR: Kajal Gomez MD SOURCE: URINE ENTR: 04/02/[address]: SARAYES: ORDERED: URINE C S QUERIES: MEDENT REQUISITION # [id number] SPECIMEN DESCRIPTION: URINE, CLEAN CATCH Procedure Result Verified Site > URINE CULTURE SENSITIVI Final 04/04/12- 09 ML FINAL: NO GROWTH DAY 2 (<1,000 CFU/mL) [facility] Permit #[id number] [address] [place] [address] DEPARTMENT OF PATHOLOGY, [address] [place] [address] [facility] Permit #[id number] Reed Gentile M.D. Director Agusto Osborn M.D. Tax Examining Technician 21 NON FASTING 22 Anion gap measurement may be of limited value in the presence of any alkalosis, especially in a combined acid base disorder. . 23 A metabolite of Naproxen, O-desmethylnaproxen, has been shown to interfere with the [employer]-Tex method for measuring total bilirubin. Samples from patients who have taken Naproxen have shown spurious elevation in total bilirubin levels. 24 Because ethnic data is not always readily available, this report includes an eGFR for both -Americans and non- Americans. The National Kidney Disease Education Program (NKDEP) does not endorse the use of the MDRD equation for patients that are not between the ages of 18 and 70, are , have extremes of body size, muscle mass, or nutritional status, or are non- or non-. According to the National Kidney Foundation, irrespective of diagnosis, the stage of the disease is based on the level of kidney function: Stage Description GFR(mL/min/1.73 m(2)) 1 Kidney damage with normal or decreased GFR 90 2 Kidney damage with mild decrease in GFR 60-89 3 Moderate decrease in GFR 30-59 4 Severe decrease in GFR 15-29 5 Kidney failure <15 (or dialysis) 25 -- REFERENCE VALUE -- <6.0 Reference values are for non- subjects only; production of AFP elevates values in women. The testing method is an immunoenzymatic assay manufactured by [employer] and performed on the nxtControl DxI 800. Values obtained with different assay methods or kits may be different and cannot be used interchangeably. Test results cannot be interpreted as absolute evidence for the presence or absence of malignant disease. Alpha-Fetoprotein values are not interpretable in females for the investigation of malignant disease. Test Performed by: [place] [address] R D Intern: Pb Chaparro III, M.D. 26 Recommended INR for Patients on Oral Anticoagulants Prophylaxis 2.0 - 3.0 Treatment of thrombosis 2.0 - 3.0 Prevention of embolism 2.0 - 3.0 Prevention of embolism from prosthetic heart valves 2.5 - 3.5 27 DIAGNOSIS,TREATMENT,AND THERAPY MUST BE BASED ON THE INR VALUE ALONE. 28 Anion gap measurement may be of limited value in the presence of any alkalosis, especially in a combined acid base disorder. . 29 A metabolite of Naproxen, O-desmethylnaproxen, has been shown to interfere with the Jendrcarlik-Weitchpec method for measuring total bilirubin. Samples from patients who have taken Naproxen have shown spurious elevation in total bilirubin levels. 30 Because ethnic data is not always readily available, this report includes an eGFR for both -Americans and non- Americans. The National Kidney Disease Education Program (NKDEP) does not endorse the use of the MDRD equation for patients that are not between the ages of 18 and 70, are , have extremes of body size, muscle mass, or nutritional status, or are non- or non-. According to the National Kidney Foundation, irrespective of diagnosis, the stage of the disease is based on the level of kidney function: Stage Description GFR(mL/min/1.73 m(2)) 1 Kidney damage with normal or decreased GFR 90 2 Kidney damage with mild decrease in GFR 60-89 3 Moderate decrease in GFR 30-59 4 Severe decrease in GFR 15-29 5 Kidney failure <15 (or dialysis) 31 Lymphopenia % 1+ Anisocytosis 32 Anion gap measurement may be of limited value in the presence of any alkalosis, especially in a combined acid base disorder. . 33 A metabolite of Naproxen, O-desmethylnaproxen, has been shown to interfere with the Jendrassik-Weitchpec method for measuring total bilirubin. Samples from patients who have taken Naproxen have shown spurious elevation in total bilirubin levels. 34 Because ethnic data is not always readily available, this report includes an eGFR for both -Americans and non- Americans. The National Kidney Disease Education Program (NKDEP) does not endorse the use of the MDRD equation for patients that are not between the ages of 18 and 70, are , have extremes of body size, muscle mass, or nutritional status, or are non- or non-. According to the National Kidney Foundation, irrespective of diagnosis, the stage of the disease is based on the level of kidney function: Stage Description GFR(mL/min/1.73 m(2)) 1 Kidney damage with normal or decreased GFR 90 2 Kidney damage with mild decrease in GFR 60-89 3 Moderate decrease in GFR 30-59 4 Severe decrease in GFR 15-29 5 Kidney failure <15 (or dialysis) 35 CHOLESTEROL INTERPRETATION: Desirable: Less than 200 MG/DL Borderline-High Risk: 200-239 MG/DL High-Risk: 240 MG/DL and over 36 HDL INTERPRETATION: Undesirable: High Risk: Less than 40 MG/DL Desirable: Low Risk: Greater than 60 MG/DL 37 LDL INTERPRETATION: Low Risk Optimal Level: LDL Less than 100 MG/DL Near or Above Optimal: LDL 100-129 MG/DL Borderline High Risk: LDL 130-159 MG/DL High Risk: LDL 160-189 MG/DL Very High Risk: LDL Greater than 189 MG/DL 38 FASTING 39 -- REFERENCE VALUE -- <6.0 Reference values are for non- subjects only; production of AFP elevates values in women. The testing method is an immunoenzymatic assay manufactured by [employer] and performed on the [employer] DXI 800. Values obtained with different assay methods or kits may be different and cannot be used interchangeably. Test results cannot be interpreted as absolute evidence for the presence or absence of malignant disease. Alpha-Fetoprotein values are not interpretable in females for the investigation of malignant disease. Test Performed by: [facility] of [facility] Med and Pathology [address] [place] [address] R D Intern: Pb Chaparro III, M.D. 40 ---- RUN DATE: 10/07/10 [facility] NMI LIVE PAGE 1 RUN TIME: 1718 Specimen Inquiry RUN USER: INTERFACE -- Name: BONNIE FORTE Accabbi#: [id number] Status: REG REF Re10/05/10 Age/Sex: 80/F Unit#: [id number] Location: [facility] : 32 -- Specimen: [id number] Spec Date: 10/05/[address]: Jatinder bautista MD Spec Type: SURGICAL P Received: 10/06/10-02 Copies to: Kajal bautista MD SPECIMEN MID LEFT COLON AT 45 CM. HISTORY POST-OP DIAGNOSIS: Large hiatal hernia; gastritis; diverticulosis; polyps ; heme positive; iron deficiency anemia - ?? hiatal hernia CLINICAL INFORMATION: Rectal bleeding, iron deficiency anemia GROSS DESCRIPTION The specimen is received in formalin labelled Bonnie Forte, Mid Left Colon at 45 cm., and consists of two fragments of yellow tissue measuring in aggregate 0.5 x 0.5 x 0.3 cm. Submitted entirely, one cassette. DIAGNOSIS Colon at 45 cm., biopsy: A. Tubular adenoma (2 fragments). B. No high grade dysplasia or malignancy. Signed Electronically by: AGUSTO OSBORN 10/07/10 1718 -- -- DEPARTMENT OF PATHOLOGY, [address] [place] [address] [facility] Permit #[id number] Reed Gentile M.D. Director Agusto Osborn M.D. Chip Applying Machine Tender Dir suma -- 41 Anion gap measurement may be of limited value in the presence of any alkalosis, especially in a combined acid base disorder. . 42 A metabolite of Naproxen, O-desmethylnaproxen, has been shown to interfere with the Jendrassik-Tex method for measuring total bilirubin. Samples from patients who have taken Naproxen have shown spurious elevation in total bilirubin levels. 43 Because ethnic data is not always readily available, this report includes an eGFR for both -Americans and non- Americans. The National Kidney Disease Education Program (NKDEP) does not endorse the use of the MDRD equation for patients that are not between the ages of 18 and 70, are , have extremes of body size, muscle mass, or nutritional status, or are non- or non-. According to the National Kidney Foundation, irrespective of diagnosis, the stage of the disease is based on the level of kidney function: Stage Description GFR(mL/min/1.73 m(2)) 1 Kidney damage with normal or decreased GFR 90 2 Kidney damage with mild decrease in GFR 60-89 3 Moderate decrease in GFR 30-59 4 Severe decrease in GFR 15-29 5 Kidney failure <15 (or dialysis) 44 -- REFERENCE VALUE -- <6.0 Reference values are for non- subjects only; production of AFP elevates values in women. The testing method is an immunoenzymatic assay manufactured by [employer] and performed on the [employer] DXI 800. Values obtained with different assay methods or kits may be different and cannot be used interchangeably. Test results cannot be interpreted as absolute evidence for the presence or absence of malignant disease. Alpha-Fetoprotein values are not interpretable in females for the investigation of malignant disease. Test Performed by: [facility] Pathology [address] [place] [id number] R D Intern: Pb Chaparro III, M.D. 45 Lymphopenia % 1+ Anisocytosis 46 Anion gap measurement may be of limited value in the presence of any alkalosis, especially in a combined acid base disorder. . 47 Note change in reference range as of 02/28/08. The change was based on recommendations from the [place] [employer]. 48 A metabolite of Naproxen, O-desmethylnaproxen, has been shown to interfere with the Jendrassik-Weitchpec method for measuring total bilirubin. Samples from patients who have taken Naproxen have shown spurious elevation in total bilirubin levels. 49 Because ethnic data is not always readily available, this report includes an eGFR for both -Americans and non- Americans. The National Kidney Disease Education Program (NKDEP) does not endorse the use of the MDRD equation for patients that are not between the ages of 18 and 70, are , have extremes of body size, muscle mass, or nutritional status, or are non- or non-. According to the National Kidney Foundation, irrespective of diagnosis, the stage of the disease is based on the level of kidney function: Stage Description GFR(mL/min/1.73 m(2)) 1 Kidney damage with normal or decreased GFR 90 2 Kidney damage with mild decrease in GFR 60-89 3 Moderate decrease in GFR 30-59 4 Severe decrease in GFR 15-29 5 Kidney failure <15 (or dialysis) 50 -- REFERENCE VALUE -- 25-HYDROXY D TOTAL (D2+D3) Optimum levels in the normal population are 25-80 Test Performed by: [facility] Med [facility] Pathology [address] [place] [id number] R D Intern: Pb Chaparro III, M.D. 51 Anion gap measurement may be of limited value in the presence of any alkalosis, especially in a combined acid base disorder. . 52 Note change in reference range as of 02/28/08. The change was based on recommendations from the [place] [employer]. 53 Please note change in reference range effective 07 . 54 A metabolite of Naproxen, O-desmethylnaproxen, has been shown to interfere with the Jendrassik-Weitchpec method for measuring total bilirubin. Samples from patients who have taken Naproxen have shown spurious elevation in total bilirubin levels. 55 Because ethnic data is not always readily available, this report includes an eGFR for both -Americans and non- Americans. The National Kidney Disease Education Program (NKDEP) does not endorse the use of the MDRD equation for patients that are not between the ages of 18 and 70, are , have extremes of body size, muscle mass, or nutritional status, or are non- or non-. According to the National Kidney Foundation, irrespective of diagnosis, the stage of the disease is based on the level of kidney function: Stage Description GFR(mL/min/1.73 m(2)) 1 Kidney damage with normal or decreased GFR 90 2 Kidney damage with mild decrease in GFR 60-89 3 Moderate decrease in GFR 30-59 4 Severe decrease in GFR 15-29 5 Kidney failure <15 (or dialysis) 56 New Reference Range and Interpretation effective 04/12/2002 TnI (ng/ml) INTERPRETATION Less Than 0.06 ng/mL NOT SUPPORTIVE OF DIAGNOSIS OF NC 0.06 - 0.50 ng/ml INDETERMINATE: SUGGEST SERIAL STUDIES IF CLINICALLY INDICATED. Greater than 0.5 ng/mL CONSISTENT WITH DIAGNOSIS OF NC . 57 Anion gap measurement may be of limited value in the presence of any alkalosis, especially in a combined acid base disorder. . 58 Note change in reference range as of 02/28/08. The change was based on recommendations from the [place] [employer]. 59 Please note change in reference range effective 07 . 60 A metabolite of Naproxen, O-desmethylnaproxen, has been shown to interfere with the Jendrassik-Weitchpec method for measuring total bilirubin. Samples from patients who have taken Naproxen have shown spurious elevation in total bilirubin levels. 61 Because ethnic data is not always readily available, this report includes an eGFR for both -Americans and non- Americans. The National Kidney Disease Education Program (NKDEP) does not endorse the use of the MDRD equation for patients that are not between the ages of 18 and 70, are , have extremes of body size, muscle mass, or nutritional status, or are non- or non-. According to the National Kidney Foundation, irrespective of diagnosis, the stage of the disease is based on the level of kidney function: Stage Description GFR(mL/min/1.73 m(2)) 1 Kidney damage with normal or decreased GFR 90 2 Kidney damage with mild decrease in GFR 60-89 3 Moderate decrease in GFR 30-59 4 Severe decrease in GFR 15-29 5 Kidney failure <15 (or dialysis) 62 Lymphopenia % 63 -- REFERENCE VALUE -- 25-HYDROXY D TOTAL (D2+D3) Optimum levels in the normal population are 25-80 Test Performed by: [facility] Pathology [address] [place] [address] R D Intern: Pb Chaparro III, M.D. 64 -- REFERENCE VALUE -- <6.0 Reference values are for non- subjects only; production of AFP elevates values in women. The testing method is an immunoenzymatic assay manufactured by [employer]. and performed on the [employer] DXI 800. Values obtained with different assay methods or kits may be different and cannot be used interchangeably. Test results cannot be interpreted as absolute evidence for the presence or absence of malignant disease. Alpha-Fetoprotein values are not interpretable in females for the investigation of malignant disease. Test Performed by: [facility] Pathology [address] [place] [address] R D Intern: Pb Chaparro III, M.D. 65 Anion gap measurement may be of limited value in the presence of any alkalosis, especially in a combined acid base disorder. . 66 Note change in reference range as of 02/28/08. The change was based on recommendations from the [place] [employer]. 67 Please note change in reference range effective 07 . 68 A metabolite of Naproxen, O-desmethylnaproxen, has been shown to interfere with the Jendrassik-Tex method for measuring total bilirubin. Samples from patients who have taken Naproxen have shown spurious elevation in total bilirubin levels. 69 Because ethnic data is not always readily available, this report includes an eGFR for both -Americans and non- Americans. The National Kidney Disease Education Program (NKDEP) does not endorse the use of the MDRD equation for patients that are not between the ages of 18 and 70, are , have extremes of body size, muscle mass, or nutritional status, or are non- or non-. According to the National Kidney Foundation, irrespective of diagnosis, the stage of the disease is based on the level of kidney function: Stage Description GFR(mL/min/1.73 m(2)) 1 Kidney damage with normal or decreased GFR 90 2 Kidney damage with mild decrease in GFR 60-89 3 Moderate decrease in GFR 30-59 4 Severe decrease in GFR 15-29 5 Kidney failure <15 (or dialysis) 70 GROUP D ENTEROCOCCUS 25^10-25,000 ORGANISMS/ML (MODERATE)^CCU 71 COMMENTS? N 72 NO GROWTH AFTER 5 DAYS 73 Anion gap measurement may be of limited value in the presence of any alkalosis, especially in a combined acid base disorder. . 74 Note change in reference range as of 02/28/08. The change was based on recommendations from the [place] [employer]. 75 Please note change in reference range effective 07 . 76 Anion gap measurement may be of limited value in the presence of any alkalosis, especially in a combined acid base disorder. . 77 Note change in reference range as of 02/28/08. The change was based on recommendations from the [place] [employer]. 78 Please note change in reference range effective 07 . 79 -- REFERENCE VALUE -- <6.0 Reference values are for non- subjects only; production of AFP elevates values in women. The testing method is an immunoenzymatic assay manufactured by [employer] and performed on the [employer] DXI 800. Values obtained with different assay methods or kits may be different and cannot be used interchangeably. Test results cannot be interpreted as absolute evidence for the presence or absence of malignant disease. Alpha-Fetoprotein values are not interpretable in females for the investigation of malignant disease. Test Performed by: [facility] Pathology [address] [place] [id number] R D Intern: Pb Chaparro III, M.D. 80 PLEASE NOTE NEW REFERENCE RANGES. 81 TEST PERFORMED BY: [facility]. [id number] [place] [phone] 82 . A negative result does not preclude the presence of a C.trachomatis or N.gonorrhoeae infection because results are dependent on adequate specimen collection, absence of inhibitors, and sufficient rRNA to be detected. Test results may be affected by improper specimen collection, improper specimen storage, technical error, or specimen mixup. . 83 . A negative result does not preclude the presence of a C.trachomatis or N.gonorrhoeae infection because results are dependent on adequate specimen collection, absence of inhibitors, and sufficient rRNA to be detected. Test results may be affected by improper specimen collection, improper specimen storage, technical error, or specimen mixup. . 84 Lymphopenia % 85 Anion gap measurement may be of limited value in the presence of any alkalosis, especially in a combined acid base disorder. . 86 PLEASE NOTE NEW REFERENCE RANGE EFFECTIVE 07 ASSAY BY IMMUNOCHEMILUMINOMETRIC ASSAY ON THE [employer] DXI-800. VALUES OBTAINED WITH DIFFERENT METHODS OR KITS CANNOT BE USED INTERCHANGEABLY FOR PATIENT MONITORING. RESULTS CANNOT BE INTERPRETED ABSOLUTE EVIDENCE OF THE PRESENCE OR ABSENCE OF MALIGNANCY. THE TEST IS NOT INTERPRETABLE IN . TEST PERFORMED BY: [facility]. [address] [place] [phone] 87 FINAL INTERPRETATION: No HIV antibody is detected. . This information has been disclosed to you from confidential records which are protected by [place] State law. State law prohibits you from making further disclosure of this information without the specific written consent of the person to whom it pertains, or as otherwise permitted by law. Any unauthorized further disclosure in violation of state law may result in a fine or care home sentence or both. General authorization for the release of medical or other information is not, except in limited circumstances set forth in Part 63, Title 10, of [facility], sufficient authorization for further disclosure. Disclosure of confidential HIV information that occurs as the result of a general authorization for the release of medical or other information will be in violation of the state law and may result in a fine or a care home sentence. . 88 PLEASE NOTE NEW REFERENCE RANGES. 89 MANY [ESCHERICHIA COLI] 100^75-100,000 ORGANISMS/ML (MANY)^CCU ESCHERICHIA COLI 90 Classification: Borderline High . 91 Classification: High . 92 CALCULATED LDL APPROXIMATES THE VALUE OF A DIRECT LDL MEASUREMENT. Classification: Optimal Level . 93 ASSAY BY IMMUNOCHEMILUMINOMETRIC ASSAY ON THE [email or web address] DXI[employer]800. VALUES OBTAINED WITH DIFFERENT METHODS OR KITS CANNOT BE USED INTERCHANGEABLY FOR PATIENT MONITORING. RESULTS CANNOT BE INTERPRETED ABSOLUTE EVIDENCE OF THE PRESENCE OR ABSENCE OF MALIGNANCY. THE TEST IS NOT INTERPRETABLE IN . TEST PERFORMED BY: [facility]. [address] [place] [phone] 94 Anion gap measurement may be of limited value in the presence of any alkalosis, especially in a combined acid base disorder. . 95 FASTING FASTING 96 Anion gap measurement may be of limited value in the presence of any alkalosis, especially in a combined acid base disorder. . 97 Classification: Desirable . 98 Classification: High . 99 CALCULATED LDL APPROXIMATES THE VALUE OF A DIRECT LDL MEASUREMENT. Classification: Optimal Level . 100 ASSAY BY MICROPARTICLE ENZYME IMMUNOASSAY ON THE [place] IMMULITE 2000. VALUES OBTAINED WITH DIFFERENT METHODS OR KITS CANNOT BE USED INTERCHANGEABLY FOR PATIENT MONITORING. RESULTS CANNOT BE INTERPRETED ABSOLUTE EVIDENCE OF THE PRESENCE OR ABSENCE OF MALIGNANCY. THE TEST IS NOT INTERPRETABLE IN . TEST PERFORMED BY: [facility]. [address] [place] [phone] 101 Anion gap measurement may be of limited value in the presence of any alkalosis, especially in a combined acid base disorder. . 102 Classification: Borderline High . 103 Classification: High . 104 CALCULATED LDL APPROXIMATES THE VALUE OF A DIRECT LDL MEASUREMENT. Classification: Optimal Level . Procedures Date Code Description Status 03/26/2012 39321 Removal-Impacted Cerumen Completed 03/25/2011 60130 EKG, at Least 12 Leads w/Interpretation and Report Completed 01/26/2011 66848 Removal-Impacted Cerumen Completed 09/07/2010 [id number] Colonoscopy Completed 06/11/2009 89269 Removal-Impacted Cerumen Completed 05/28/2008 [id number] Removal-Impacted Cerumen Completed 04/28/2005 27365 EKG, at Least 12 Leads w/Interpretation and Report Completed 04/28/2005 95802 Removal-Impacted Cerumen Completed 10/31/2003 17929 Therapeutic Injection (Specify Material Injected) Completed 04/04/2002 62479 Removal-Impacted Cerumen Completed 04/04/2002 79304 Removal-Impacted Cerumen Completed Encounters Type Date Location Provider Dx Diagnosis Office Visit 07/19/2018 Main Office Kajal Ramirez R41.0 Disorientation, 3:15p Rebecca Gomez unspecified Office Visit 12/27/2017 Main Office Kajal Ramirez Z00.00 Encntr for general 10:15a Rebecca Gomez adult medical exam w/o abnormal findings B18.2 Chronic viral hepatitis C E03.8 Other specified hypothyroidism I10 Essential (primary) hypertension E55.9 Vitamin D deficiency, unspecified E61.1 Iron deficiency J45.909 Unspecified asthma, uncomplicated H61.21 Impacted cerumen, right ear D48.5 Neoplasm of uncertain behavior of skin Office Visit 03/21/2017 4:45p Main Office Kajal Ramirez E03.8 Other specified Rebecca Gomez hypothyroidism I10 Essential (primary) hypertension E61.1 Iron deficiency E55.9 Vitamin D deficiency, unspecified B18.2 Chronic viral hepatitis C G47.00 Insomnia, unspecified L57.0 Actinic keratosis Z23 Encounter for immunization Office Visit 09/30/2015 10:15a Main Office Kajal Ramirez Z00.01 Encounter for Rebecca Gomez general adult medical exam w abnormal findings E03.8 Other specified hypothyroidism I10 Essential (primary) hypertension E61.1 Iron deficiency E55.9 Vitamin D deficiency, unspecified B18.2 Chronic viral hepatitis C G47.00 Insomnia, unspecified Z23 Encounter for immunization Office Visit 09/11/2014 9:30a Main Office Kajal Ramirez V70.0 Examination General Rebecca Gomez Medical Routine AT [facility] 244.8 Hypothyroidism Other Spec 401.9 Hypertension Unspec 780.52 Insomnia Unspecified 070.54 Hepatitis C Viral Chronic W/O Hepatic Coma 280.9 Iron Deficiency Anemia Unspec V03.82 Streptococcus Pneumoniae Vaccination Spec Other Office Visit 07/02/2014 11:30a Main Office Kajal Ramirez 465.9 URI Upper Rebecca Gomez Respiratory Infections Acute Unspec Sites Office Visit 04/07/2014 11:45a Main Office Kajal Ramirez 244.8 Hypothyroidism Other Rebecca Gomez Spec 780.52 Insomnia Unspecified 401.9 Hypertension Unspec 070.54 Hepatitis C Viral Chronic W/O Hepatic Coma 280.9 Iron Deficiency Anemia Unspec V04.81 Need For Prophylactic Vaccination & Inoculation/Influenza Office Visit 04/04/2013 9:30a Main Office Kajal Ramirez V70.0 Examination General Jason MChapoDChapo Medical Routine AT [facility] 244.8 Hypothyroidism Other Spec 780.52 Insomnia Unspecified 401.9 Hypertension Unspec 070.54 Hepatitis C Viral Chronic W/O Hepatic Coma 553.3 Hernia Diaphragmatic 280.9 Iron Deficiency Anemia Unspec 599.70 Hematuria, Unspecified V04.81 Need For Prophylactic Vaccination & Inoculation/Influenza 702.0 Actinic Keratosis Office Visit 11/28/2012 4:00p Main Office Louisa Pugh, 466.0 Bronchitis Acute [employer] Office Visit 11/26/2012 11:45a Main Office Louisa Pugh, 477.9 Rhinitis Allergic [employer]OUT WORK[employer]-C Cause Unspec Office Visit 04/02/2012 10:15a Main Office Kajal Ramirez V70.0 Examination General Blegen M.D. Medical Routine AT [facility] 244.8 Hypothyroidism Other Spec 780.52 Insomnia Unspecified 401.9 Hypertension Unspec 070.54 Hepatitis C Viral Chronic W/O Hepatic Coma 389.9 Hearing Loss Unspec 553.3 Hernia Diaphragmatic 493.90 Asthma Unspec W/O Status Asthmaticus 280.9 Iron Deficiency Anemia Unspec Office Visit 08/12/2011 11:00a Main Office Renetta Romo 461.8 Sinusitis Acute Rebecca Polk Other 786.2 Cough 493.90 Asthma Unspec W/O Status Asthmaticus 783.21 Loss Of Weight Office Visit 03/25/2011 8:45a Main Office Vidya Robledo V72.84 Examination Storm, [employer] WORK[employer]-C Preoperative Unspec 366.8 Cataract Other 401.9 Hypertension Unspec Office Visit 01/26/2011 10:15a Main Office Kajal Ramirez V70.0 Examination General Blegen M[facility]apoD[facility] Rout[facility] 244.8 Hypothyroidism Other Spec 401.9 Hypertension Unspec 780.52 Insomnia Unspecified 782.1 Rash & Other Nonspec Skin Eruption 070.54 Hepatitis C Viral Chronic W/O Hepatic Coma 389.9 Hearing Loss Unspec 553.3 Hernia Diaphragmatic 280.9 Iron Deficiency Anemia Unspec 380.4 Impacted Cerumen Office Visit 08/30/2010 11:00a Main Office Kajal Ramirez 244.8 Hypothyroidism Other Blegen, M.D. Spec 401.9 Hypertension Unspec 780.52 Insomnia Unspecified 782.1 Rash & Other Nonspec Skin Eruption Office Visit 12/29/2009 12:00p Main Office Kajal Ramirez 780.52 Insomnia Blegen, M.DChapo Unspecified 244.8 Hypothyroidism Other Spec 401.9 Hypertension Unspec Office Visit 12/10/2009 10:30a Main Office Kajal Ramirez 780.52 Insomnia Blegen, M.DChapo Unspecified 807.06 FX Ribs Closed Six 244.8 Hypothyroidism Other Spec 401.9 Hypertension Unspec 388.70 Otalgia & Earache Unspec Office Visit 12/02/2009 Main Office Melissa 464.20 Laryngotracheitis Acute 3:45p AKILAH Izquierdo W/O Obstruction Office Visit 07/27/2009 Main Office Kajal Ramirez 807.06 FX Ribs Closed Six 1:30p Rebecca Gomez 780.52 Insomnia Unspecified Office Visit 06/03/2009 9:30a Main Office Kajal Ramirez V72.31 Routine Rotary 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 Infection Site Not Spec V04.81 Need For Prophylactic Vaccination & Inoculation/Influenza Office Visit 08/23/2008 10:00a Main Office Renetta Romo 493.90 Asthma Unspec W/O Rebecca Polk Status Asthmaticus 786.2 Cough Office Visit 06/23/2008 11:15a Main Office Kajal Ramirez 244.8 Hypothyroidism Other Rebecca Gomez Spec 070.54 Hepatitis C Viral Chronic W/O Hepatic Coma 401.9 Hypertension Unspec Office Visit 05/28/2008 9:30a Main Office Kajal Ramirez 244.8 Hypothyroidism Other Rebecca Gomez Spec 401.9 Hypertension Unspec 070.54 Hepatitis C Viral Chronic W/O Hepatic Coma 493.90 Asthma Unspec W/O Status Asthmaticus 380.4 Impacted Cerumen 389.9 Hearing Loss Unspec V04.81 Need For Prophylactic Vaccination & Inoculation/Influenza Office Visit 06/30/2007 10:00a Main Office Crystal Parisi 311 Depressive Disorder Anam [facility] 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 Office Visit 01/08/2007 2:00p Main Office Crystal Parisi 112.82 Candidal Otitis Anam, Externa [facility] Office Visit 04/28/2006 9:45a Main Office Kyle Ji, 401.9 Hypertension Unspec M.D. 070.54 Hepatitis C Viral Chronic W/O Hepatic Coma 493.90 Asthma Unspec W/O Status Asthmaticus V70.0 Examination General Medical Routine AT Health Care Facility V76.9 Screening Malignant Neoplasm Unspec Office Visit 04/28/2005 8:30a Main Office Kyle Ji 401.9 Hypertension Unspec M.D. 380.4 Impacted Cerumen Office Visit 04/25/2005 12:45p Main Office Kyle Ji 401.9 Hypertension Unspec M.D. 070.54 Hepatitis C Viral Chronic W/O Hepatic Coma 493.90 Asthma Unspec W/O Status Asthmaticus 380.4 Impacted Cerumen 427.9 Cardiac Dysrhythmia Unspec V04.81 Need For Prophylactic Vaccination & Inoculation/Influenza V76.9 Screening Malignant Neoplasm Unspec V70.0 Examination General Medical Routine AT [facility] Care Facility Office Visit 10/20/2004 4:45p Main Office Kyle Ji, 836.0 Dislocation Knee M.D. Tear Of Medial Cartilage Or Meniscus Curr 405.19 Hypertension Secondary Other Benign 070.54 Hepatitis C Viral Chronic W/O Hepatic Coma Office Visit 10/11/2004 3:00p Main Office Kyle Ji 836.0 Dislocation Knee M.D. Tear Of Medial Cartilage Or Meniscus Curren Office Visit 04/23/2004 8:45a Main Office Kyle Ji 070.54 Hepatitis C Viral M.D. Chronic W/O Hepatic Coma 493.90 Asthma Unspec W/O Status Asthmaticus 405.19 Hypertension Secondary Other Benign V76.9 Screening Malignant Neoplasm Unspec v70.0 Examination General Medical Routine AT [facility] Office Visit 10/31/2003 3:00p Main Office Valente Olmstead M.D. 681.00 Cellulitis & Abscess Finger Unspec Office Visit 11/11/2002 3:15p Main Office Kyle Ji 070.54 Hepatitis C Viral M.D. 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 401.9 Hypertension Unspec 493.90 Asthma Unspec W/O Status Asthmaticus 070.51 Hepatitis C Viral W/O Mention Of Hepatic Coma Acute Office Visit 10/16/2001 9:45a Main Office Kyle Ji, 493.90 Asthma Unspec W/O M.D. Status Asthmaticus 401.9 Hypertension Unspec 724.2 Lumbago 380.4 Impacted Cerumen Plan of Treatment Future Appointment(s):11/27/2018 4:00 pm - Kajal Gomez M[id number]/29/2018 - Kajal Gomez M.D.J18.9 Pneumonia, unspecified organismComments:HUGE CLINICAL IMPROVEMENT, IMPROVEMENT ON EXAM WELL, JUST MINIMAL SOUNDS LEFT BASE, LIKELY SOME COMPONENT OF ATELECTASIS- ENCOURAGED DEEP BREATHS EVERY HOUR, NOTIFY IF NOT CONTINUING TO IMPROVE OR WORSENING AND WOULD CHECK CHEST XRAY.Recommendations:-- BONNIE LOOKS MUCH BETTER AND LUNGS SOUND GOOD , JUST A TINY RESIDUAL EXTRA SOUND AT LEFT BASE. I THINK THE INFECTION IS RESOLVED. MAKE SURE TO TAKE DEEP BREATH EVERY HOUR WHILE AWAKE -- YOU SHOULD CONTINUE TO FEEL MUCH BETTER EVERY DAY- IF WORSENING OR FEVER, LET US KNOWG47.00 Insomnia, unspecifiedFollow up:. F/U NOVEMBER- 30 MINRecommendations:-- CONTINUE THE TEMAZEPAM 7.5 MG AT NIGHT FOR INSOMNIA. SOMETIMES IT WORKS BETTER TO TAKE PERIODICALLY INSTEAD OF EVERY DAY. MAYBE SKIP EVERY THIRD DAY IF NOT WORKING WELLR53.1 WeaknessComments:MUCH IMPROVED, AMBULATING WELL. THEY ARE GETTING RAISED TOILET SEAT TO MAKE IT EASIER TO GET ON AND OFF THE TOILET. EATING BETTER, GETTIN STRENGTH BACK.Recommendations:-- I AGREE WITH GETTING THE RAISED TOILET SEAT -- I'M GLAD SHE IS EATING BETTER BETTER -- CAN TRY ALMOND MILK YOGURT OR C[place]ONUT MILK [id number] Essential (primary) hypertensionComments: DOING WELL ON LOSARTAN, REPEAT BMP. HAS HAD LOW POTASSIUM LEVEL IN THE PAST, MAY NOT NEED POTASSIUM SUPP ANYMORE SINCE OFF THE HCTZ LAST VISIT.Recommendations:-- IF REPEAT POTASSIUM IS NORMAL TO HIGH NORMAL, WE MAY BE ABLE TO DISCONTINUE THE POTASSIUM TABLET-WE WILL LET YOU KNOW SINCE SHE IS OFF THE DIURETIC -- CONTINUE THE LOSARTAN 25 MG PER DAY
--- OUTSIDE RECORDS SUMMARY | 2018-09-17 18:28 | XMS REPORT | Continuity of Care Document ---
:1930 External Reference #:[id number] Author Name Kajal Gomez M.D. Address [address] [place] [address] Care Team Providers Name Role Phone Kajal Gomez M.D. Care Team Information Power Builder Developer Unavailable Payers Date Identification Numbers Payment Provider Subscriber Effective: 1999 Policy Number: [id number] Medicare - [facility] Bonnie Forte PayID: [id number] [address] [place] [address] Effective: 2000 Policy Number: [facility] Bonnie Forte [id number] Expires: [address] [place] [address] Effective: 2011 Policy Number: [id number] [facility] Bonnie Forte [facility] [address] [place] [address] Advance Directives Description No Information Available Problems [...] Household pets include a cat 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 blood pressure Levofloxacin 08/15 Active Tablets 500mg 8tabs 1 tab by everyday P. for 8 days Jason, for M.D. pneumonia Temazepam 08/15 Active Capsules 7.5mg 14cap 1 po qhs s prn P. insomnia Rebecca Gomez Align 08/15 Active Capsules 4mg 14cap 1 by mouth s every day P. as directed Rebecca Gomez Potassium 10/02 Active Tablets ER 595mg 1 po qd Kajal Gluconate Ashley Gomez M.D. Ventolin HFA 06/07 Active Aerosol 108(90Bas 18uni two puffs Kajal e) ts by mouth P. mcg/Act every 4 Blegen, hours as M.DChapo needed for wheezing- may fill with any preferred- please do not fill until patient call Levothyroxine 05/19 Active Tablets 25mcg 135ta take 1 Kajal Sodium /2006 bs tablet by P. mouth every Blegen, other on M.D. empty stomach for low thyroid Vitamin D3 10/04 Hx Capsules 1000Unit 1 by mouth every day P. - Blegen, 12/27 M.DChapo /2017 Multivitamins 09/29 Hx Capsules 1 Per Day [...] s mouth every P. - night at Ble, 07/04 bedtime as .D. needed anxiety Advil PM 04/07 Hx Capsules 200-25mg 1 po at bedtime as P. - needed Blegen, 10/02 M.D. Trazodone HCL 04/04 Hx Tablets 50mg 30tab 1/2-1 po s qhs for P. - insomnia as Blegen, 05/06 directed M.D. Diphenhydramine 04/04 Hx Capsules 25mg 1/2-1 po Kajal HCL qhs prn P. - allergies/ Blegen, 09/11 sleep M.D. Prednisone 11/28 Hx Tablets 20mg 21tab take 3 466.0 s tablets x 3 Keaton, - days, then [employer] 04/03 2 tablets x 3 days,then 1 tablet x 3 days, then 1/2 tablet x 3 days. Azithromycin 11/28 Hx Tablets 250mg 6tabs take 2 466.0 Louisa tablets Keaton, - today then [employer] 04/03 1 tablet daily for the next 4 days Guaifenesin/Code 11/28 Hx Syrup 100-10mg/ 240ml 1 - 2 466.0 Louisa 5ML teaspoon po Keaton, - q 4 hours [employer] 04/03 prn cough, causes drowsiness Pataday 09/26 Hx Solution 0.2% 1unit one drop s each eye P. - once per Blegen, 07/19 day as . needed for allergy eye symptoms Alprazolam 04/11 Hx Tablets 0.5mg 30tab 07/11-1 po s qhs prn P. - insomnia Blegen, 09/10 M.D. Alprazolam 04/02 Hx Tablets 0.25mg 20tab 07/11-2 po s qhs prn P. - anxiety/ Blegen, 04/11 sleep M.D. Patanol 10/02 Hx Solution 0.1% 5ml one to two gtts ou bid P. - prn Blegen, 04/02 allergic M.D. conjunctiv itis Azithromycin 08/12 Hx Tablets 250mg 6tabs 2 po qd x 1 461.8 day, then 1 K.W. - po qd Jam, 04/02.D. Multiple 01/26 Hx Tablets for iron [facility] Vitamins/Iron deficiency P. - anemia- 1 Blegen, 03/25 week per M.D. month Triamcinolone 08/30 Hx Cream 0.1% 30Gra apply qd to Kajal Acetonide ms bid to rash P. - for up to 2 Blegen, 04/02 weeks .D. (steroid) Gabapentin 01/05 Hx Capsules 300mg 180ca Take 1 To 2 ps Capsules By P. - Mouth AT Blegen, 04/04 Bedtime For . Sleep Gabapentin 12/29 Hx Capsules 100mg 30cap take 1-3 s capsules P. - qhs prn for Blegen, 01/05 insomnia/ M.D. pain Nasonex 12/10 Hx Suspension 50mcg/Act 1unit 2 sprays Shawnt s each R. Amos, - nostril qd [employer] 04/02 as Claritin 12/10 Hx Tabs 10mg [...] Hx Capsules 100mg 14cap One PO bid [facility] s X 7 Days P. - prn Urinary Blegen, 03/25 Tract M.D. Infection Zovirax 06/03 Hx Ointment 5% 15gm use topically P. - at first Blegen, 04/02 sign of .. cold sore 5 times per day x 5 days Albuterol HFA 12/26 Hx 90mcg/Inh 1unit 2 puffs q 4 s hours prn P. - wheezing Blegen, 06/07.D. Procardia XL 05/28 Hx Tablets ER 30mg 90tab take one 24HR s tablet by P. - mouth every Blegen, 08/15 day for .D. blood pressure Cipro 01/15 Hx Tablets 250mg 6tabs one bid x 3 599.0 Crystal /2006 days A. - Anam, 06/03 [facility] /2008 Cortisporin-TC 01/08 Hx Suspension 10ml 4 gtts ti 112.82 Crystal Otic /2006 affected A. - ear qid x7 Anam, 04/26 days for [facility] /2006 otitis externa Sonata 05/06 Hx Capsules 10mg 30cap 1 hs prn Kyle /2004 s Garrison Benedict M.D. 01/08 Nortriptyline 04/25 [...] one tid x s 10 days Jak Omlstead.DChapo 01/13 Flovent HFA 11/11 Hx Aerosol 44mcg/Act 10.6u not nits currently P. - taking- Blegen, 12/31 inhale two M.DChapo puffs by mouth twice a day; rinse mouth after use Lotensin 04/04 Hx Tablets 20mg 30tab One qd Kyle s Garrison Benedict M.D. 04/04 Lotensin HCT 04/04 Hx Tablets 20-25mg 90tab take 1 s tablet by Meena Trinidad, - mouth daily [employer] 08/15 Estraderm Patch 12/19 Hx .05mg 24uni one ts bi-weekly Garrison Benedict M.D. 04/25 Medications Administered in Office Medication Date Status Form Strength Qnty SIG Indications Ordering Provider Rocephin Administered Injection Valente Olmstead, (Ceftriaxone) 004 M.D. Per 250MG Therapeutic Administered Injection Valente Olmstead, Injection 004 M.D. (Specify Material Injected) Immunizations CPT Code Status Date Vaccine Lot # [id number] Given 03/21/2017 Influenza Vaccine High Dose PF [id number] 50623 Given 09/30/2015 Influenza Vaccine High Dose PF [id number] 69605 Given 09/11/2014 Prevnar-13 Pneumococcal Conjugate Vaccine [id number] 55802 Given 04/07/2014 Influenza Virus Vaccine, Quadrivalent, 3 Yr > [id number] Quad, Preserv Free 37056 Given 04/04/2013 Influenza Vaccine-Preservative Free 3 Yrs And [id number] Above 53400 Given 04/02/2012 Influenza Vaccine-Preservative Free 3 Yrs And [id number] Above 20104 Given 06/24/2011 Influenza Vaccine-Preservative Free 3 Yrs And [id number] Above 07485 Given 04/21/2010 Influenza Vaccine-Preservative Free 3 Yrs And [id number] Above 48203 Given 05/06/2009 Influenza Vaccine-Preservative Free 3 Yrs And [id number] Above 58564 Given 05/28/2008 Influenza Virus Vaccine, 3 Yrs And Above [id number] 37773 Given 04/26/2007 Influenza Virus Vaccine, 3 Yrs And Above 75430 Given 04/21/2006 Influenza Virus Vaccine, 3 Yrs And Above [id number] 70058 Given 04/25/2005 Influenza Virus Vaccine, 3 Yrs And Above 62674 Given 10/20/2004 DT (Adult) 75500 Given 04/08/2003 Influenza Virus Vaccine, 3 Yrs And Above 10415 Given 04/08/2003 Influenza Virus Vaccine, 3 Yrs And Above 73604 Given 04/26/2002 Influenza Virus Vaccine, 3 Yrs And Above 41842 Given 03/29/2001 Influenza Virus Vaccine, 3 Yrs And Above 86886 Given Unknown Pneumovax 23 (PPSV23) 65+ years or high risk 2 to 64 year old Vital Signs Date Vital Result Comment 08/15/2018 11:49am Weight 99.00 lb Weight 44.906 [...] Date Facility Test Result H/L Range Note Urine DIP 07/19/2018 In House Lab Leukocytes 2+ High Neg (607)- - Urine Nitrites NEG Neg Urobilinogen NORM Norm Total Protein, Urine TRACE Neg Urine pH 9 High 5-6 Urine Blood TRACE Neg Specific Dora 1.000 Low 1.01-1.02 Urine Ketones NEG Neg Urine Bilirubin NEG Neg Urine Glucose NORM Norm Urine Culture And 07/19/2018 [facility] Urine Culture SEE RESULT 1 Sensitivities [phone] BELOW CBC No Diff 07/19/2018 [facility] White Blood 9.2 10^ 3/uL N 3.5-10 [phone] Count .8 Red Blood Count 5.02 10^6/uL N 4.00-5.40 [...] fL N 7.4-10.4 Comp Metabolic Panel 07/19/2018 [facility] Sodium 139 mmol/L N 135-145 [phone] Potassium 3.2 mmol/L Low 3.5-5.0 Chloride 99 [...] Non- 89.6 >60 Egfr 108.4 >60 2 Urinalysis Profile 07/19/2018 [facility] Urine Color Yellow [phone] Urine Appearance Cloudy Urine Specific Dora 1.012 N 1.010-1.030 Urine pH 8.0 N [...] Urine Squamous Epithelial Cell Present Abnormal Absent Laboratory test 07/19/2018 [facility] Troponin-I (TnI ) 0.01 ng/mL <0.04 3 finding [phone] Laboratory test 12/27/2017 [facility] Ferritin 26.7 ng/mL N 11-307 4 finding [phone] Iron & Iron 12/27/2017 [facility] Iron 125 g/dL N 50-212 Binding Capacity [phone] Unsaturated Iron Binding 456 g/dL Total Iron Binding Capacity 581 g/dL High 250-450 Transferrin 415 mg/dL High 203-362 % Iron Saturation 22 % N 15-55 CBC Auto Diff 12/27/2017 [facility] White Blood 6.5 10^3/uL N 3.5-10.8 [phone] Count Red Blood Count 5.33 10^6/uL N [...] Blood Cells % 0.2 Laboratory test 12/27/2017 [facility] Vitamin D 72.7 ng/mL High 20-50 5 finding [phone] Total 25(Oh) Comp Metabolic 12/27/2017 [facility] Sodium 140 mmol/ L N 135-145 Panel [phone] Potassium 3.6 mmol/L N 3.5-5.0 Chloride 99 [...] Egfr Non- 58.0 >60 Egfr 70.2 >60 6 Laboratory test 12/27/2017 [facility] TSH (Thyroid 3.26 mcIU/mL N 0.34-5.60 7 finding [phone] Stim Horm) Liver Function 03/21/2017 [facility] Total Protein 7.8 g/dL N 6.4-8.9 Panel [phone] Albumin 4.3 g/dL N 3.2-5.2 Globulin 3.5 g/dL N 2-4 Albumin/Globulin Ratio 1.2 N 1-3 Total Bilirubin 0.60 mg/dL N 0.2-1.0 Direct Bilirubin 0.20 mg/dL High 0.03-0.18 Indirect Bilirubin 0.4 mg/dL N 0.3-1.0 Alkaline Phosphatase 48 U/L N 34-104 Alt 33 U/L N 7-52 Ast 43 U/L High 13-39 Laboratory test 03/21/2017 [facility] Vitamin D 104.8 High 20-50 8 finding [phone] Total 25(Oh) ng/mL CBC Auto Diff 03/21/2017 [facility] White Blood 7.1 N 3.5-10.8 [phone] Count 10^3/uL Red Blood Count 5.19 10^6/uL [...] Cells % 0.3 N Laboratory test 03/21/2017 [facility] Ferritin < 10.0 ng/mL Low 11-307 9 finding [phone] Basic Metabolic 03/21/2017 [facility] Sodium 135 mmol /L N 133-145 Panel [phone] Potassium 3.3 mmol/L Low 3.5-5.0 Chloride 97 mmol/L Low 101-111 Co2 Carbon Dioxide 29 mmol/L N 22-32 Anion Gap 9 mmol/L N 2-11 Glucose 96 mg/dL N 70-100 Blood Urea Nitrogen 20 mg/dL N 6-24 Creatinine 0.81 mg/dL N 0.51-0.95 BUN/Creatinine Ratio 24.7 High 8-20 Calcium 10.2 mg/dL N 8.6-10.3 Egfr Non- 67.4 N >60 Egfr 86.6 N >60 10 Laboratory test 03/21/2017 [facility] TSH (Thyroid 3.03 mcIU/mL N 0.34-5.60 11 finding [phone] Stim Horm) Laboratory test 07/21/2015 [facility] TSH (Thyroid 3.32 ?IU/mL N 0.34-5.60 finding [phone] Stim Horm) Comp Metabolic 07/21/2015 [facility] Sodium 137 mmol/ L N 133-145 Panel [phone] Potassium 4.4 mmol/L N 3.5-5.0 Chloride 101 [...] 60.6 N >60 Egfr 77.9 N >60 12 Laboratory test 07/21/2015 [facility] Ferritin < 10.0 ng/mL Low 11-307 finding [phone] Vitamin D Total 25(Oh) 27.1 ng/mL Low 30-50 Liver Function 07/21/2015 [facility] Direct 0.20 mg/ dL High 0.03-0.18 Panel [phone] Bilirubin Indirect Bilirubin 0.3 mg/dL N 0.3-1.0 CBC Auto Diff 07/21/2015 [facility] White Blood 5.4 10^3/uL N 3.5-10.8 [phone] Count Red Blood Count 4.82 10^6/uL N [...] Cells % 0.5 N Laboratory test 09/11/2014 [facility] TSH (Thyroid 3.40 IU/mL N 0.34-5.60 finding [phone] Stimulating Horm) Comp Metabolic 09/11/2014 [facility] Sodium 136 mmol/ L N 133-145 Panel [phone] Potassium 3.3 mmol/L Low 3.5-5.0 Chloride 98 [...] 67.7 N >60 Egfr 87.1 N >60 13 CBC Auto Diff 09/11/2014 [facility] White Blood 5.4 10^3/uL N 4.8-10.8 [phone] Count Red Blood Count 4.87 10^6/uL N [...] Cells % 0.1 N Laboratory test 09/11/2014 [facility] Ferritin 12.7 ng/mL N 11-307 finding [phone] Vitamin D, 25 09/11/2014 [facility] 25-Hydroxy <4.0 ng/mL N Hydroxy [phone] Vitamin D2 25-Hydroxy Vitamin D3 25 ng/mL N 25-Hydroxy Vitamin D Total 25 ng/mL N 14 Liver Function 09/11/2014 [facility] Direct 0.20 mg/ dL High 0.03-0.18 Panel [phone] Bilirubin Indirect Bilirubin 0.5 mg/dL N 0.3-1.0 Laboratory test 04/07/2014 [facility] TSH (Thyroid 2.56 IU/mL N 0.34-5.60 finding [phone] Stimulating Horm) Comp Metabolic 04/07/2014 [facility] Sodium 138 mmol/ L N 133-145 Panel [phone] Potassium 3.9 mmol/L N 3.7-5.6 Chloride 101 [...] 83.0 N >60 Egfr 106.8 N >60 15 Laboratory test 04/04/2013 [facility] TSH (Thyroid 2.91 0.34-5.60 finding [phone] Stimulating miu/mL Horm) Urine DIP 04/04/2013 In House Lab Leukocytes ++ Neg (607)- - Urine Nitrites neg Neg Urine pH 6 5-6 Total Protein, Urine neg Neg Urine Glucose norm Norm Urine Ketones neg Neg Urobilinogen norm Norm Urine Bilirubin neg Neg Urine Blood trace Neg Specific Dora 1.015 1.01-1.02 Comp Metabolic Panel 04/04/2013 [facility] Sodium 137 mmol/L 133-145 [phone] Potassium 3.9 mmol/L 3.5-5.0 Chloride 97 mmol/L [...] Egfr Non- 69.0 >60 Egfr 88.8 >60 16 Laboratory test 04/04/2013 [facility] Afp Tumor 33 ng /mL Abnormal 17 finding [phone] Marker CBC Auto Diff 04/04/2013 [facility] White Blood 4.9 4.8-2 [phone] Count 10^3/uL 0.8 Red Blood Count 5.16 [...] Blood Cells % 0 Laboratory test 04/04/2013 [facility] Ferritin 36 ng/ mL 11-307 finding [phone] Urine Culture And 04/04/2013 [facility] Urine Culture (SEE NOTE) 18 Sensitivities [phone] Urinalysis 04/04/2013 [facility] Urine Color [place] W/Microscopic [phone] Urine Appearance Clear Urine Specific Dora 1.019 1.010-1.030 Urine Esterase 3+ Abnormal Negative [...] Seen None Seen Urine Culture & 04/02/2012 [facility] M --- <SEE 19 Sensitivi [phone] NOTE> Laboratory test 04/02/2012 [facility] TSH 2.40 MIU/ ML 0.34- 20 finding [phone] 5.60 Comp Metabolic 04/02/2012 [facility] Sodium 137 mmol/ L 135-1 Panel [phone] Potassium 4.3 mmol/L 3.5-5.0 Chloride 99 mmol/L Low 101-111 Co2 (Carbon Dioxide) 31.0 mmol/L 22-32 Anion Gap 7.0 mmol/L 2-11 21 Glucose 81 mg/dL 70-100 BUN 18 mg/dL 6-24 Creatinine 0.8 mg/dL 0.50-1.40 One Over Creatinine 1.25 BUN/Creatinine Ratio 22.5 High 8-20 Calcium 9.7 mg/dL 8.1-9.9 Total Protein 7.0 GM/DL 6.2-8.1 Albumin 4.1 GM/DL 3.2-5.2 Globulin 2.9 GM/DL 2-4 Albumin/Globulin Ratio 1.4 1-3 Bilirubin Total 0.7 mg/dL 0.4-1.5 22 Alkaline Phosphatase 47 U/L 30-110 Alt (SGPT) 30 U/L 14-54 Ast (Sgot) 45 U/L High 12-42 eGFR Non- 69.2 > 60 eGFR 89.0 > 60 23 CBC Auto Diff 04/02/2012 [facility] White Blood 5.8 CUMM 4.8-10.8 [phone] Count Red Cell Count 4.72 CUMM 4.2-5.4 [...] 0-0.6 Abs Basophils 0.1 0-0.2 Laboratory 04/02/2012 [facility] Alphafetoprotein 24 ng/mL Abnormal () 24 test finding [phone] Tumor Marker Ferritin 13 NG/ML 11.0-307 Urine DIP 04/02/2012 In House Lab Leukocytes ++ Neg (607)- - Urine Nitrites neg Neg Urine pH 5 5-6 Total Protein, Urine trace Neg Urine Glucose norm Norm Urine Ketones neg Neg Urobilinogen norm Norm Urine Bilirubin neg Neg Urine Blood trace Neg Specific Dora na Low 1.01-1.02 Laboratory test 03/25/2011 [facility] PTT (Aptt) 33.8 25.15-38.53 finding [phone] PT W/Inr 03/25/2011 [facility] Inr 0.90 0.82-1.17 25 [phone] Protime 10.6 SEC 10.2-14.8 26 Comp Metabolic Panel 03/25/2011 [facility] Sodium 135 mmol/L 135-145 [phone] Potassium 3.7 mmol/L 3.5-5.0 Chloride 94 mmol/L Low 101-111 Co2 (Carbon Dioxide) 30.0 mmol/L 22-32 Anion Gap 11.0 mmol/L 2-11 27 Glucose 102 mg/dL High 70-100 BUN 7 mg/dL 6-24 Creatinine 0.7 mg/dL 0.50-1.40 One Over Creatinine 1.42 BUN/Creatinine Ratio 10.0 8-20 Calcium 9.5 mg/dL 8.1-9.9 Total Protein 8.1 GM/DL 6.2-8.1 Albumin 4.2 GM/DL 3.2-5.2 Globulin 3.9 GM/DL 2-4 Albumin/Globulin Ratio 1.1 1-3 Bilirubin Total 0.9 mg/dL 0.4-1.5 28 Alkaline Phosphatase 104 U/L 30-110 Alt (SGPT) 43 U/L 14-54 Ast (Sgot) 70 U/L High 12-42 eGFR Non- 80.9 > 60 eGFR 104.1 > 60 29 Urine DIP 03/25/2011 In House Lab Leukocytes TRACE Neg (607)- - Urine Nitrites NEG Neg Urine pH 7 High 5-6 Total Protein, Urine NEG Neg Urine Glucose NORM Norm Urine Ketones NEG Neg Urobilinogen 1 High Norm Urine Bilirubin NEG Neg Urine Blood NEG Neg Specific Dora NA Low 1.01-1.02 CBC Auto Diff 01/26/2011 [facility] White Blood 6.6 CUMM 4.8-10.8 [phone] Count Red Cell Count 4.69 CUMM 4.2-5.4 Hemoglobin 13.4 g/dL 12.0-16.0 Hematocrit 41 % 35-47 Mean Corpuscular Volume 88 um3 79-97 Mean Corpuscular Hemoglob 29 pg 27-31 Mean Corpuscular HGB Cone 33 g/dL 32-36 Redcell Distribution WDTH 18 % High 10.5-15 Platelet Count 268 CUMM 150-450 Mean Platelet Volume 10.3 um3 7.4-10.4 30 Comp Metabolic Panel 01/26/2011 [facility] Sodium 140 mmol/L 135-145 [phone] Potassium 3.9 mmol/L 3.5-5.0 Chloride 100 mmol/L Low 101-111 Co2 (Carbon Dioxide) 31.0 mmol/L 22-32 Anion Gap 9.0 mmol/L 2-11 31 Glucose 103 mg/dL High 70-100 BUN 10 mg/dL 6-24 Creatinine 0.80 mg/dL 0.50-1.40 One Over Creatinine 1.20 BUN/Creatinine Ratio 12.5 8-20 Calcium 9.6 mg/dL 8.1-9.9 Total Protein 6.8 GM/DL 6.2-8.1 Albumin 3.9 GM/DL 3.2-5.2 Globulin 2.9 GM/DL 2-4 Albumin/Globulin Ratio 1.3 1-3 Bilirubin Total 0.9 mg/dL 0.4-1.5 32 Alkaline Phosphatase 79 U/L 30-110 Alt (SGPT) 47 U/L 14-54 Ast (Sgot) 61 U/L High 12-42 eGFR Non- 69.4 > 60 eGFR 89.2 > 60 33 Laboratory test 01/26/2011 [facility] TSH 2.28 MIU/ ML 0.34-5.60 finding [phone] Lipid Profile 01/26/2011 [facility] Triglyceride 58 mg/dL 40-200 (Trig/Chol/HDL) [phone] Cholesterol 197 mg/dL Less Than 200 34 High Density Lipoprotein 101 mg/dL High 40-60 35 Cholesterol/HDL Ratio 1.95 AVERAGE 1-4.44 Low Density Lipoprotein 84 mg/dL Less Than 100 36 Manual Differential 01/26/2011 [facility] Polysegmented 73 % 38-83 [phone] Neutrophil Band Neutrophil 1 % 0-8 Lymphocyte [...] NEG Neg Urine Blood NEG Neg Specific Dora NA Low 1.01-1.02 CBC With Manual 10/30/2010 [facility] White Blood 7.2 CUMM 4.8-10.8 37 Diff [phone] Count Red Cell Count 4.88 CUMM 4.2-5.4 [...] SLIGHT Platelet Evaluation LARGE Laboratory test 10/30/2010 [facility] Ferritin 14 NG/ ML 11.0-307 finding [phone] Alphafetoprotein Tumor Marker 20 ng/mL Abnormal () 38 Laboratory test 10/05/2010 [facility] Clotest POSITIVE Abnormal finding [phone] Surgical 10/05/2010 [facility] Surgical 39 Pathology [phone] Pathology ---- <SEE NOTE> Hemoccult 09/10/2010 In House Lab Stool-Occult NEG Neg (607)- - Blood #1 Stool-Occult Blood #2 NEG Neg Stool-Occult Blood #3 NEG Neg Laboratory test 08/30/2010 [facility] TSH 2.27 MIU/ ML 0.34-5.60 finding [phone] Comp Metabolic 08/30/2010 [facility] Sodium 136 mmol/ L 135-145 Panel [phone] Potassium 3.5 mmol/L 3.5-5.0 Chloride 99 mmol/L Low 101-111 Co2 (Carbon Dioxide) 29.0 mmol/L 22-32 Anion Gap 8.0 mmol/L 2-11 40 Glucose 107 mg/dL High 70-100 BUN 12 mg/dL 6-24 Creatinine 0.70 mg/dL 0.50-1.40 One Over Creatinine 1.40 BUN/Creatinine Ratio 17.1 8-20 Calcium 9.5 mg/dL 8.1-9.9 Total Protein 7.7 GM/DL 6.2-8.1 Albumin 4.2 GM/DL 3.2-5.2 Globulin 3.5 GM/DL 2-4 Albumin/Globulin Ratio 1.2 1-3 Bilirubin Total 0.8 mg/dL 0.4-1.5 41 Alkaline Phosphatase 84 U/L 30-110 Alt (SGPT) 41 U/L 14-54 Ast (Sgot) 55 U/L High 12-42 eGFR Non- 80.9 > 60 eGFR 104.1 > 60 42 Laboratory 08/30/2010 [facility] Alphafetoprotein 22 ng/mL Abnormal () 43 test finding [phone] Tumor Marker CBC With 08/30/2010 [facility] White Blood Count 7.1 CUMM 4.8-1 Electronic [phone] 0.8 Diff Red Cell Count 4.67 CUMM [...] Eosinophils 0.1 0-0.6 Abs Basophils 0.1 0-0.2 44 Iron & Iron 08/30/2010 [facility] Iron Total 25 g/ dL Low 28-170 Binding Capacity [phone] Unsaturated Iron Binding 654 g/dL Total Iron Binding Capacity 679 g/dL High 250-450 % Iron Saturation 4 % Low 15-55 Laboratory test 08/30/2010 [facility] Ferritin < 10 NG/ML Low 11.0-307 finding [phone] Vitamin B12 466 pg/mL 180-914 Laboratory test 04/21/2010 [facility] Thyroxine Free 0.61 NG/ML 0.61-1.24 finding [phone] Comp Metabolic 04/21/2010 [facility] Sodium 136 mmol/ L 135-145 Panel [phone] Potassium 4.1 mmol/L 3.5-5.0 Chloride 98 mmol/L Low 101-111 Co2 (Carbon Dioxide) 28.0 mmol/L 22-32 Anion Gap 10.0 mmol/L 2-11 45 Glucose 81 mg/dL 70-100 46 BUN 19 mg/dL 6-24 Creatinine 0.80 mg/dL 0.50-1.40 One Over Creatinine 1.20 BUN/Creatinine Ratio 23.8 High 8-20 Calcium 9.6 mg/dL 8.1-9.9 Total Protein 7.4 GM/DL 6.2-8.1 Albumin 4.2 GM/DL 3.2-5.2 Globulin 3.2 GM/DL 2-4 Albumin/Globulin Ratio 1.3 1-3 Bilirubin Total 0.9 mg/dL 0.4-1.5 47 Alkaline Phosphatase 86 U/L 30-110 Alt (SGPT) 45 U/L 14-54 Ast (Sgot) 66 U/L High 12-42 eGFR Non- 73.9 > 60 eGFR 89.4 > 60 48 Laboratory test 04/21/2010 [facility] TSH 12.38 High 0.34-5.60 finding [phone] MIU/ML Vitamin D, 25 12/10/2009 [facility] 25-Hydroxy <4.0 ng/mL () Hydroxy [phone] Vitamin D2 25-Hydroxy Vitamin D3 62 ng/mL () 25-Hydroxy Vitamin D Total 62 ng/mL () 49 Laboratory test 12/10/2009 [facility] TSH 2.97 MIU/ ML 0.34-5.60 finding [phone] CBC With Manual 12/10/2009 [facility] White Blood 9.1 CUMM 4.8-10.8 Diff [phone] Count Red Cell Count 5.14 CUMM 4.2-5.4 [...] RBC Morphology NORMAL Comp Metabolic Panel 12/10/2009 [facility] Sodium 137 mmol/L 135-145 [phone] Potassium 3.4 mmol/L Low 3.5-5.0 Chloride 96 mmol/L Low 101-111 Co2 (Carbon Dioxide) 30.0 mmol/L 22-32 Anion Gap 11.0 mmol/L 2-11 50 Glucose 75 mg/dL 70-100 51 BUN 16 mg/dL 6-24 Creatinine 0.70 mg/dL 0.50-1.40 One Over Creatinine 1.40 BUN/Creatinine Ratio 22.9 High 8-20 Calcium 9.7 mg/dL 8.1-9.9 52 Total Protein 7.1 GM/DL 6.2-8.1 Albumin 4.2 GM/DL 3.2-5.2 Globulin 2.9 GM/DL 2-4 Albumin/Globulin Ratio 1.4 1-3 Bilirubin Total 0.8 mg/dL 0.4-1.5 53 Alkaline Phosphatase 83 U/L 30-110 Alt (SGPT) 45 U/L 14-54 Ast (Sgot) 63 U/L High 12-42 eGFR Non- 86.2 > 60 eGFR 104.3 > 60 54 Laboratory test 07/01/2009 [facility] Troponin-I (TnI ) 0.01 NG/ML 55 finding [phone] CMP Stat 07/01/2009 [facility] Sodium 133 mmol/L Low 135-1 [phone] Potassium 3.5 mmol/L 3.5-5.0 Chloride 94 mmol/L Low 101-111 Co2 (Carbon Dioxide) 30.0 mmol/L 22-32 Anion Gap 9.0 mmol/L 2-11 56 Glucose 84 mg/dL 70-100 57 BUN 19 mg/dL 6-24 Creatinine 0.80 mg/dL 0.50-1.40 One Over Creatinine 1.20 BUN/Creatinine Ratio 23.8 High 8-20 Calcium 10.0 mg/dL High 8.1-9.9 58 Total Protein 7.3 GM/DL 6.2-8.1 Albumin 4.0 GM/DL 3.2-5.2 Globulin 3.3 GM/DL 2-4 Albumin/Globulin Ratio 1.2 1-3 Bilirubin Total 1.1 mg/dL 0.4-1.5 59 Alkaline Phosphatase 75 U/L 30-110 Alt (SGPT) 39 U/L 14-54 Ast (Sgot) 52 U/L High 12-42 eGFR Non- 73.9 > 60 eGFR 89.4 > 60 60 CBC With 07/01/2009 [facility] White Blood 8.1 CUMM 4.8-10.8 Electronic Diff [phone] Count Stat Red Cell Count 5.60 CUMM [...] Eosinophils 0 0-0.6 Abs Basophils 0.1 0-0.2 61 Urine DIP 06/03/2009 In House Lab Leukocytes ++ Neg (607)- - Urine Nitrites NEG Neg Urine pH 8 High 5-6 Total Protein, Urine TRACE Neg Urine Glucose NORM Norm Urine Ketones NEG Neg Urobilinogen NORM Norm Urine Bilirubin NEG Neg Urine Blood NEG Neg Specific Dora N/A Low 1.01-1.02 Vitamin D.25 05/25/2009 [facility] 25-Hydroxy Vitamin <4.0 ng/mL () Hydroxy [phone] D2 25-Hydroxy Vitamin D3 54 ng/mL () 25-Hydroxy Vitamin D Total 54 ng/mL () 62 Laboratory 05/25/2009 [facility] TSH 4.78 0.34- 5.60 test finding [phone] MIU/ML Laboratory 05/25/2009 [facility] Alphafetoprotein 22 Abnormal () 63 test finding [phone] Tumor Marker ng/mL Comp 05/25/2009 [facility] Sodium 136 135-145 Metabolic [phone] mmol/L Panel Potassium 3.8 mmol/L 3.5-5.0 Chloride 100 mmol/L Low 101-111 Co2 (Carbon Dioxide) 29.0 mmol/L 22-32 Anion Gap 7.0 mmol/L 2-11 64 Glucose 98 mg/dL 70-100 65 BUN 12 mg/dL 6-24 Creatinine 0.70 mg/dL 0.50-1.40 One Over Creatinine 1.40 BUN/Creatinine Ratio 17.1 8-20 Calcium 9.5 mg/dL 8.1-9.9 66 Total Protein 7.1 GM/DL 6.2-8.1 Albumin 3.9 GM/DL 3.2-5.2 Globulin 3.2 GM/DL 2-4 Albumin/Globulin Ratio 1.2 1-3 Bilirubin Total 0.7 mg/dL 0.4-1.5 67 Alkaline Phosphatase 84 U/L 30-110 Alt (SGPT) 48 U/L 14-54 Ast (Sgot) 68 U/L High 12-42 eGFR Non- 86.5 > 60 eGFR 104.6 > 60 68 CBC With Manual 05/25/2009 [facility] White Blood 5.9 CUMM 4.8-10.8 Diff [phone] Count Red Cell Count 5.30 CUMM 4.2-5.4 [...] Poikilocytosis SLIGHT Polychromasia SLIGHT Laboratory test 05/06/2009 [facility] Urine Culture GROUP D 69 finding [phone] Sensitivi ENTEROCO <SEE NOTE> Urine Culture 05/06/2009 [facility] Ampicillin <=2 S Sensitivities [phone] Ciprofloxacin 1 S Nitrofurantoin <=16 S Levofloxacin [...] NEG Neg Urine Blood TRACE Neg Specific Dora N/A Low 1.01-1.02 Laboratory test 08/13/2008 [facility] TSH 3.98 0.34-5.60 finding [phone] MIU/ML Blood Culture 07/07/2008 [facility] Blood NG5 70 , 71 [phone] Culture CMP Stat 07/07/2008 [facility] Sodium 130 mmol/L Low 135-145 [phone] Potassium 3.0 mmol/L Low 3.5-5.0 Chloride 97 mmol/L Low 101-111 Co2 (Carbon Dioxide) 27.0 mmol/L 22-32 Anion Gap 6.0 mmol/L 2-11 72 Glucose 88 mg/dL 70-100 73 BUN 21 mg/dL 6-24 Creatinine 0.60 mg/dL 0.50-1.40 One Over Creatinine 1.60 BUN/Creatinine Ratio 35.0 High 8-20 Calcium 8.2 mg/dL 8.1-9.9 74 Total Protein 6.2 GM/DL 6.2-8.1 Albumin 2.8 GM/DL Low 3.2-5.2 Globulin 3.4 GM/DL 2-4 Albumin/Globulin Ratio 0.8 Low 1-3 Bilirubin Total 1.3 mg/dL 0.4-1.5 Alkaline Phosphatase 56 U/L 30-110 Alt (SGPT) 43 U/L 14-54 Ast (Sgot) 53 U/L High 12-42 CBC With Manual 07/07/2008 [facility] White Blood 10.4 CUMM 4.8-10.8 Diff [phone] Count Red Cell Count 4.76 CUMM 4.2-5.4 [...] Anisocytosis SLIGHT Polychromasia SLIGHT Laboratory test 07/07/2008 [facility] BNP Evaluatr 36.7 pg/mL 7.5-100 finding [phone] Laboratory test 06/02/2008 [facility] TSH 4.65 MIU/ ML 0.34-5.60 finding [phone] Comp Metabolic 06/02/2008 [facility] Sodium 138 mmol/ L 135-145 Panel [phone] Potassium 3.6 mmol/L 3.5-5.0 Chloride 98 mmol/L Low 101-111 Co2 (Carbon Dioxide) 33.0 mmol/L High 22-32 Anion Gap 7.0 mmol/L 2-11 75 Glucose 94 mg/dL 70-100 76 BUN 17 mg/dL 6-24 Creatinine 0.75 mg/dL 0.50-1.40 One Over Creatinine 1.30 BUN/Creatinine Ratio 22.7 High 8-20 Calcium 9.7 mg/dL 8.1-9.9 77 Total Protein 6.7 GM/DL 6.2-8.1 Albumin 3.7 GM/DL 3.2-5.2 Globulin 3.0 GM/DL 2-4 Albumin/Globulin Ratio 1.2 1-3 Bilirubin Total 0.9 mg/dL 0.4-1.5 Alkaline Phosphatase 59 U/L 30-110 Alt (SGPT) 48 U/L 14-54 Ast (Sgot) 69 U/L High 12-42 Laboratory 06/02/2008 [facility] Alphafetoprotein 22 ng/mL Abnormal () 78 test finding [phone] Tumor Marker CBC With 06/02/2008 [facility] White Blood Count 6.2 CUMM 4.8-1 Electronic [phone] 0.8 Diff Red Cell Count 5.04 CUMM [...] neg Neg Urine Blood neg Neg Specific Dora n/a Low 1.01-1.02 Laboratory test 08/31/2007 [facility] TSH 4.81 MIU/ ML 0.34-5.60 finding [phone] Laboratory test 06/30/2007 [facility] TSH 3.37 MIU/ ML 0.34-5.60 finding [phone] Free Thyroxine 0.70 NG/ML 0.61-1.24 79 Thyroid 06/30/2007 [facility] Thyroglobulin 20 U/ML < 60 Autoantibodies [phone] Autoantibodies Thyroid Peroxidase Autoab 106 U/ML High < 60 80 GC/Chlamydia Dna 04/26/2007 [facility] CHL By NEGATIVE Negative 81 Probe [phone] Aptima GC By Aptima NEGATIVE Negative 82 CBC With 04/26/2007 [facility] White Blood 6.1 CUMM 4.8-10.8 Electronic Diff [phone] Count Abs Basophils 0 0-0.2 Abs Eosinophils 0.1 0-0.6 Absolute Neutrophil Count 4.6 1.5-7.7 Abs Lymphs 1.1 1.0-4.8 Abs Mononuclear 0.4 0-0.8 Basophil % 0.5 % 0-2 Hematocrit 48 % High 35-47 83 Hemoglobin 16.2 g/dL High 12.0-16.0 Eosinophil % [...] WDTH 15 % 10.5-15 Comp Metabolic 04/26/2007 [facility] One Over Creatinine 1.25 Panel [phone] Anion Gap 8.0 mmol/L 2-11 84 Albumin/Globulin Ratio 1.4 1-3 Albumin 4.2 GM/DL [...] 8-20 Creatinine 0.8 mg/dL 0.5-1.4 Laboratory 04/26/2007 [facility] Alphafetoprotein 27.1 High <6.0 85 test finding [phone] Tumor Marker NG/ML TSH 7.17 MIU/ML High 0.34-5.60 Vad 04/26/2007 [facility] Vad Final NONREACTIVE Nonreactive 86 [phone] Laboratory test 04/26/2007 [facility] RPR NON REACTIVE Nonreactive finding [phone] Free Thyroxine 0.53 NG/ML Low 0.61-1.24 87 Urine DIP 04/26/2007 In House Lab Leukocytes NEG Neg (607)- - Urine Nitrites NEG Neg Urine pH 6-7 5-6 Total Protein, Urine NEG Neg Urine Glucose NEG Norm Urine Ketones NEG Neg Urobilinogen NEG Norm Urine Bilirubin NEG Neg Urine Blood NEG Neg Specific Dora NA Low 1.01-1.02 Urine Culture And 01/15/2007 [facility] Urine Culture MANY 88 Sensitivites [phone] Sensitivi [ESCHERICHI <SEE NOTE> Gram Neg Kyle 01/15/2007 [facility] Ampicillin 4 S Sensitivities [phone] Amikacin <=2 S Ciprofloxacin <=0.25 S Cefotetan [...] radha Neg Urine Blood trace Neg Specific Dora n/a Low 1.01-1.02 Laboratory test 04/28/2006 [facility] TSH 4.26 MIU/ ML 0.34-5.60 finding [phone] Urine DIP 04/28/2006 In House Lab Leukocytes NEG Neg (607)- - Urine Nitrites NEG Neg Urine pH 5 5-6 Total Protein, Urine NL Neg Urine Glucose NL Norm Urine Ketones NL Neg Urobilinogen NL Norm Urine Bilirubin NL Neg Urine Blood NL Neg Specific Dora N/A Low 1.01-1.02 Laboratory test 04/21/2006 [facility] Ammonia cancelled finding [phone] Lipid Profile 04/21/2006 [facility] Cholesterol/H 2.05 AVERAGE 1-4.44 (Trig/Chol/HDL) [phone] DL Ratio Cholesterol 205 mg/dL High Less Than 200 89 Triglyceride 74 mg/dL 40-200 High Density Lipoprotein 100 mg/dL High 40-60 90 Low Density Lipoprotein 90 mg/dL Less Than 100 91 Laboratory 04/21/2006 [facility] Alphafetoprotein 25.5 High <6.0 92 test finding [phone] Tumor Marker NG/ML CBC With 04/21/2006 [facility] White Blood Count 6.4 CUMM 4.8-10. Electronic [phone] Diff Abs Basophils 0 0-0.2 Abs [...] WDTH 14 % 10.5-15 Laboratory test 04/21/2006 [facility] Alphafetoprotein see below finding [phone] Maternal Comp Metabolic 04/21/2006 [facility] One Over Creatinine 1.11 Panel [phone] Anion Gap 6.0 mmol/L 2-11 93 Albumin/Globulin Ratio 1.1 1-3 Albumin 4.1 GM/DL [...] NEG Neg Urine Blood NEG Neg Specific Dora NA Low 1.01-1.02 Comp Metabolic 04/18/2005 [facility] One Over Creatinine 1.11 94 Panel [phone] Anion Gap 6.0 mmol/L 2-11 95 Albumin/Globulin Ratio 1.3 1-3 Albumin 3.9 GM/DL [...] Creatinine 0.9 mg/dL 0.5-1.4 Lipid Profile 04/18/2005 [facility] Cholesterol 195 mg/dL Less 96 (Trig/Chol/HDL) [phone] Than 200 Triglyceride 103 mg/dL 40-200 High Density Lipoprotein 85 mg/dL High 40-60 97 Low Density Lipoprotein 89 mg/dL Less Than 100 98 Cholesterol/HDL Ratio 2.29 AVERAGE 1-4.44 CBC With 04/18/2005 [facility] White Blood 5.4 CUMM 4.8-10.8 Electronic Diff [phone] Count Hematocrit 47 % 35-47 Hemoglobin 16.0 g/dL 12.0-16.0 Mean Corpuscular HGB Cone 34 g/dL 32-36 Mean Corpuscular Hemoglob 31 pg 27-31 Mean Corpuscular Volume 91 um3 79-97 Mean Platelet Volume 10.5 um3 High 7.4-10.4 Platelet Count 254 CUMM 150-450 Red Cell Count 5.21 CUMM 4.2-5.4 Redcell Distribution WDTH 14 % 10.-15 Laboratory 04/18/2005 [facility] Alphafetoprotein 26.3 High <6.0 99 test finding [phone] Tumor Marker NG/ML CBC With 04/18/2005 [facility] White Blood Count 5.4 CUMM 4.8-10. Manual Diff [phone] Absolute Neutrophil Count 3.1 Atypical Lymph [...] WDTH 14 % 10.5-15 CBC With 04/23/2004 [facility] White Blood 6.8 CUMM 4.8-10.8 Electronic Diff [phone] Count Abs Basophils 0 0-0.2 Abs Eosinophils [...] 14 % 10.5-15 Comp Metabolic Panel 04/23/2004 [facility] Anion Gap 5 mmol/L 2-11 100 [phone] Albumin/Globulin Ratio 1.3 1-3 Albumin 3.9 GM/DL [...] BUN/Creatinine Ratio 12.5 8-20 Lipid Profile 04/23/2004 [facility] Cholesterol 203 mg/dL High Less 101 (Trig/Chol/HDL) [phone] Than 200 Triglyceride 89 mg/dL 40-200 High Density Lipoprotein 91 mg/dL High 40-60 102 Low Density Lipoprotein 94 mg/dL Less Than 100 103 Cholesterol/HDL Ratio 2.23 AVERAGE 1-4.44 Liver Function 04/23/2004 [facility] Bilirubin Direct 0.1 mg/dL 0.1-0.5 Panel [phone] Indirect Bilirubin 0.7 mg/dL 0.1-0.75 Laboratory test 04/23/2004 [facility] Alphafetoprotein 23.6 High <6.0 finding [phone] Maternal Urine DIP 04/23/2004 In House Lab Leukocytes 2+ High Neg (607)- - Urine Nitrites neg Neg Urine pH 5 5-6 Total Protein, Urine nl Neg Urine Glucose nl Norm Urine Ketones nl Neg Urobolinogen nl Norm Urine Bilirubin nl Neg Urine Blood nl Neg Specific Dora n/a Low 1.01-1.02 Urine DIP 11/11/2002 In House Lab Leukocytes NEG Neg (607)- - Urine Nitrites NEG Neg Urine pH 5 5-6 Total Protein, Urine NL Neg Urine Glucose NL Norm Urine Ketones NL Neg Urobolinogen NL Norm Urine Bilirubin NL Neg Urine Blood NL Neg Specific Dora N/A Low 1.01-1.02 1 SEE RESULT BELOW Name: BONNIE FORTE : [address]: Kajal Gomez MD Acct: [id number] Unit: [id number] AGE: 88 Location: [facility] Re07/19/18 SEX: F Status: REG REF SPEC: [id number] CECY: 07/19/18-[address]: Kajal Gomez MD REQ: [id number] RECD: 07/19/18801 STATUS: COMP _ SOURCE: URINE [facility]: ORDERED: Urine Culture COMMENTS: [id number] Urine Source: Clean Catch Procedure Result Reported Site Urine Culture Final 07/21/18- 09 ML Organism 1 KLEBSIELLA PNEUMONIAE [place] Count 25-50,000 (Moderate) CFU/ML 1. KLEBSIELLA PNEUMONIAE [...] . END OF REPORT DEPARTMENT OF PATHOLOGY, [address] [place] [id number] Reed Gentile M.D. Director [facility] # [id number] 2 Because ethnic data is not always [...] troponins reflex immediate secondary confirmatory testing. 4 [id number] 6 Because ethnic data is not always readily [...] 15-29 5 Kidney failure <15 (or dialysis) 7 [id number] 10 Because ethnic data is not always readily [...] 15-29 5 Kidney failure <15 (or dialysis) 11 [id number] 12 Because ethnic data is not always readily [...] 15-29 5 Kidney failure <15 (or dialysis) 13 Because ethnic data is not always [...] 5 Kidney failure <15 (or dialysis) 14 REFERENCE VALUE 25-HYDROXY D TOTAL (D2+D3) Optimum levels in the healthy population are 20-50, patients with bone disease may benefit from higher levels within this range. Test Performed by: [facility] - [address] [address] Water Filtration Technician: Norman Mackey II, M.D., Ph.D. 15 Because ethnic data is not always readily [...] 15-29 5 Kidney failure <15 (or dialysis) 16 Because ethnic data is not always [...] 5 Kidney failure <15 (or dialysis) 17 -- REFERENCE VALUE -- <6.0 Reference values are for non- subjects only; production of AFP elevates values in women. The testing method is an immunoenzymatic assay manufactured by [employer] and performed on the [employer] DxI 800. Values obtained with different assay methods or kits may be different and cannot be used interchangeably. Test results cannot be interpreted as absolute evidence for the presence or absence of malignant disease. Alpha-Fetoprotein values are not interpretable in females for the investigation of malignant disease. Test Performed by: [place] [address] Water Filtration Technician: Pb Chaparro III, M.D. 18 RUN DATE: 04/06/13 [facility] LIVE PAGE 1 RUN TIME: [address] [place] [address] Specimen Inquiry Name: BONNIE FORTE : [address]: Kajal Gomez MD Acct: [id number] Unit: [id number] AGE: 82 Location: [facility] Re04/04/13 SEX: F Status: REG REF SPEC: [id number] CECY: 04/04/13-[address]: Kajal Gomez MD REQ: [id number] RECD: 04/04/13-1218 STATUS: COMP _ SOURCE: URINE SPDESC: ORDERED: Urine Culture QUERIES: Medent Number [id number] Procedure Result Verified Site Urine Culture Final 04/06/13- 957 ML Organism 1 NORMAL DAPHNEY [place] Count 10-25,000 (Moderate) CFU/ML END OF REPORT * ML=Testing performed at Main Lab DEPARTMENT OF PATHOLOGY, [address] [place] [address] Reed Gentile M.D. Director [facility] Permit #[id number] RUN DATE: 04/04/12 [facility] NMI LIVE PAGE 1 RUN TIME: 922 Specimen Inquiry RUN USER: INTERFACE Name: BONNIE FORTE Status: REG REF Re04/02/12 Age/Sex: 81/F Unit#: [id number] Location: [facility] : 34 SPEC #: [id number] CECY: 04/02/12 STATUS: COMP REQ #: [id number] RECD: 04/02/[address] [facility] [address]: Kajal Gomez MD SOURCE: URINE ENTR: 04/02/12-[address]: SPDES: ORDERED: URINE C S [facility] [id number] SPECIMEN DESCRIPTION: URINE, CLEAN CATCH Procedure Result Verified Site > URINE CULTURE SENSITIVI Final 04/04/12- 922 ML FINAL: NO GROWTH DAY 2 (<1,000 CFU/mL) ML - [facility] Permit #[id number] [address] [place] [address] DEPARTMENT OF PATHOLOGY, [address] [place] [address] [facility] Permit #[id number] Reed Gentile M.D. Director Agusto Osborn M.D. Bending Machine Operator 20 NON FASTING 21 Anion gap measurement may be of limited value in the presence of any alkalosis, especially in a combined acid base disorder. . 22 A metabolite of Naproxen, O-desmethylnaproxen, has been shown to interfere with the [place] method for measuring total bilirubin. Samples from patients who have taken Naproxen have shown spurious elevation in total bilirubin levels. 23 Because ethnic data is not always readily [...] 15-29 5 Kidney failure <15 (or dialysis) 24 -- REFERENCE VALUE -- <6.0 Reference values are for non- subjects only; production of AFP elevates values in women. The testing method is an immunoenzymatic assay manufactured by [employer] and performed on the [employer] DxI 800. Values obtained with different assay methods or kits may be different and cannot be used interchangeably. Test results cannot be interpreted as absolute evidence for the presence or absence of malignant disease. Alpha-Fetoprotein values are not interpretable in females for the investigation of malignant disease. Test Performed by: [place] [address] Water Filtration Technician: Pb Chaparro III, M.D. 25 Recommended INR for Patients on Oral Anticoagulants Prophylaxis 2.0 - 3.0 Treatment of thrombosis 2.0 - 3.0 Prevention of embolism 2.0 - 3.0 Prevention of embolism from prosthetic heart valves 2.5 - 3.5 26 DIAGNOSIS,TREATMENT,AND THERAPY MUST BE BASED ON THE INR VALUE ALONE. 27 Anion gap measurement may be of limited value in the presence of any alkalosis, especially in a combined acid base disorder. . 28 A metabolite of Naproxen, O-desmethylnaproxen, has been shown to interfere with the [place] method for measuring total bilirubin. Samples from patients who have taken Naproxen have shown spurious elevation in total bilirubin levels. 29 Because ethnic data is not always readily [...] 15-29 5 Kidney failure <15 (or dialysis) 30 Lymphopenia % 1+ Anisocytosis 31 Anion gap measurement may be of limited value in the presence of any alkalosis, especially in a combined acid base disorder. . 32 A metabolite of Naproxen, O-desmethylnaproxen, has been shown to interfere with the [place] method for measuring total bilirubin. Samples from patients who have taken Naproxen have shown spurious elevation in total bilirubin levels. 33 Because ethnic data is not always readily [...] 15-29 5 Kidney failure <15 (or dialysis) 34 CHOLESTEROL INTERPRETATION: Desirable: Less than 200 MG/DL Borderline-High Risk: 200-239 MG/DL High-Risk: 240 MG/DL and over 35 HDL INTERPRETATION: Undesirable: High Risk: Less than 40 MG/DL Desirable: Low Risk: Greater than 60 MG/DL 36 LDL INTERPRETATION: Low Risk Optimal Level: LDL Less than 100 MG/DL Near or Above Optimal: LDL 100-129 MG/DL Borderline High Risk: LDL 130-159 MG/DL High Risk: LDL 160-189 MG/DL Very High Risk: LDL Greater than 189 MG/DL 37 FASTING 38 -- REFERENCE VALUE -- <6.0 Reference values are for non- subjects only; production of AFP elevates values in women. The testing method is an immunoenzymatic assay manufactured by [employer] and performed on the [employer] DXI 800. Values obtained with different assay methods or kits may be different and cannot be used interchangeably. Test results cannot be interpreted as absolute evidence for the presence or absence of malignant disease. Alpha-Fetoprotein values are not interpretable in females for the investigation of malignant disease. Test Performed by: [facility] Dpt of Lab Med and Pathology [address] [place], [place] [id number] Water Filtration Technician: Pb Chaparro III, M.D. 39 ---- RUN DATE: 10/07/10 [facility] NMI LIVE PAGE 1 RUN TIME: 1718 Specimen Inquiry RUN USER: INTERFACE -- Name: BONNIE FORTE#: [id number] Status: REG REF Re10/05/10 Age/Sex: 80/F Unit#: [id number] Location: END : 32 -- Specimen: [id number] Spec Date: 10/05/[address]: Jatinder bautista MD Spec Type: SURGICAL P Received: 10/06/10 Copies to: Kajal bautista MD SPECIMEN MID LEFT COLON AT 45 CM. HISTORY POST-OP DIAGNOSIS: Large hiatal hernia; gastritis; diverticulosis; polyps ; heme positive; iron deficiency anemia - ?? hiatal hernia CLINICAL INFORMATION: Rectal bleeding, iron deficiency anemia GROSS DESCRIPTION The specimen is received in formalin labelled [facility], Mid Left Colon at 45 cm., and consists of two fragments of yellow tissue measuring in aggregate 0.5 x 0.5 x 0.3 cm. Submitted entirely, one cassette. DIAGNOSIS Colon at 45 cm., biopsy: A. Tubular adenoma (2 fragments). B. No high grade dysplasia or malignancy. Signed Electronically by: AGUSTO OSBORN 10/07/10 1718 -- -- DEPARTMENT OF PATHOLOGY, [address] [place] [address] [facility] Permit #[id number] Reed Gentile M.D. Director Agusto Osborn M.D. Shoemaking Finisher Dir suma -- 40 Anion gap measurement may be of limited value in the presence of any alkalosis, especially in a combined acid base disorder. . 41 A metabolite of Naproxen, O-desmethylnaproxen, has been shown to interfere with the [place] method for measuring total bilirubin. Samples from patients who have taken Naproxen have shown spurious elevation in total bilirubin levels. 42 Because ethnic data is not always readily [...] 15-29 5 Kidney failure <15 (or dialysis) 43 -- REFERENCE VALUE -- <6.0 Reference values are for non- subjects only; production of AFP elevates values in women. The testing method is an immunoenzymatic assay manufactured by [employer] and performed on the [employer] DXI 800. Values obtained with different assay methods or kits may be different and cannot be used interchangeably. Test results cannot be interpreted as absolute evidence for the presence or absence of malignant disease. Alpha-Fetoprotein values are not interpretable in females for the investigation of malignant disease. Test Performed by: [facility] Dpt of Lab Med and Pathology [address] [place] [address] Water Filtration Technician: Pb Chaparro III, M.D. 44 Lymphopenia % 1+ Anisocytosis 45 Anion gap measurement may be of limited value in the presence of any alkalosis, especially in a combined acid base disorder. . 46 Note change in reference range as of 02/28/08. The change was based on recommendations from the [place] [employer]. 47 A metabolite of Naproxen, O-desmethylnaproxen, has been shown to interfere with the [place] method for measuring total bilirubin. Samples from patients who have taken Naproxen have shown spurious elevation in total bilirubin levels. 48 Because ethnic data is not always readily [...] 15-29 5 Kidney failure <15 (or dialysis) 49 -- REFERENCE VALUE -- 25-HYDROXY D TOTAL (D2+D3) Optimum levels in the normal population are 25-80 Test Performed by: [facility] D[facility] of Lab Med and Pathology [address] [place] [address] Water Filtration Technician: Pb Chaparro III, M.D. 50 Anion gap measurement may be of limited value in the presence of any alkalosis, especially in a combined acid base disorder. . 51 Note change in reference range as of 02/28/08. The change was based on recommendations from the [place] [employer]. 52 Please note change in reference range effective 07 . 53 A metabolite of Naproxen, O-desmethylnaproxen, has been shown to interfere with the [place] method for measuring total bilirubin. Samples from patients who have taken Naproxen have shown spurious elevation in total bilirubin levels. 54 Because ethnic data is not always readily [...] 15-29 5 Kidney failure <15 (or dialysis) 55 New Reference Range and Interpretation effective 04/12/2002 TnI (ng/ml) INTERPRETATION Less Than 0.06 ng/mL NOT SUPPORTIVE OF DIAGNOSIS OF ME 0.06 - 0.50 ng/ml INDETERMINATE: SUGGEST SERIAL STUDIES IF CLINICALLY INDICATED. Greater than 0.5 ng/mL CONSISTENT WITH DIAGNOSIS OF ME . 56 Anion gap measurement may be of limited value in the presence of any alkalosis, especially in a combined acid base disorder. . 57 Note change in reference range as of 02/28/08. The change was based on recommendations from the [place] [employer]. 58 Please note change in reference range effective 07 . 59 A metabolite of Naproxen, O-desmethylnaproxen, has been shown to interfere with the [place] method for measuring total bilirubin. Samples from patients who have taken Naproxen have shown spurious elevation in total bilirubin levels. 60 Because ethnic data is not always readily [...] 15-29 5 Kidney failure <15 (or dialysis) 61 Lymphopenia % 62 -- REFERENCE VALUE -- 25-HYDROXY D TOTAL (D2+D3) Optimum levels in the normal population are 25-80 Test Performed by: [facility] D[facility] of Lab Med and Pathology [address] [place] [address] Water Filtration Technician: Pb Chaparro III, M.D. 63 -- REFERENCE VALUE -- <6.0 Reference values are for non- subjects only; production of AFP elevates values in women. The testing method is an immunoenzymatic assay manufactured by [employer] and performed on the [employer] DXI 800. Values obtained with different assay methods or kits may be different and cannot be used interchangeably. Test results cannot be interpreted as absolute evidence for the presence or absence of malignant disease. Alpha-Fetoprotein values are not interpretable in females for the investigation of malignant disease. Test Performed by: [facility] D[facility] of Lab Med and Pathology [address] [place] [address] Water Filtration Technician: Pb Chaparro III, M.D. 64 Anion gap measurement may be of limited value in the presence of any alkalosis, especially in a combined acid base disorder. . 65 Note change in reference range as of 02/28/08. The change was based on recommendations from the [place] [employer]. 66 Please note change in reference range effective 07 . 67 A metabolite of Naproxen, O-desmethylnaproxen, has been shown to interfere with the [employer]-Tex method for measuring total bilirubin. Samples from patients who have taken Naproxen have shown spurious elevation in total bilirubin levels. 68 Because ethnic data is not always readily [...] 15-29 5 Kidney failure <15 (or dialysis) 69 GROUP D ENTEROCOCCUS 25^10-25,000 ORGANISMS/ML (MODERATE)^CCU 70 COMMENTS? N 71 NO GROWTH AFTER 5 DAYS 72 Anion gap measurement may be of limited value in the presence of any alkalosis, especially in a combined acid base disorder. . 73 Note change in reference range as of 02/28/08. The change was based on recommendations from the [place] [employer]. 74 Please note change in reference range effective 07 . 75 Anion gap measurement may be of limited value in the presence of any alkalosis, especially in a combined acid base disorder. . 76 Note change in reference range as of 02/28/08. The change was based on recommendations from the [place] [employer]. 77 Please note change in reference range effective 07 . 78 -- REFERENCE VALUE -- <6.0 Reference values are for non- subjects only; production of AFP elevates values in women. The testing method is an immunoenzymatic assay manufactured by [employer] and performed on the [employer] DXI 800. Values obtained with different assay methods or kits may be different and cannot be used interchangeably. Test results cannot be interpreted as absolute evidence for the presence or absence of malignant disease. Alpha-Fetoprotein values are not interpretable in females for the investigation of malignant disease. Test Performed by: [facility] D[facility] of Lab Med and Pathology [address] [place] [id number] Water Filtration Technician: Pb Chaparro III, M.D. 79 PLEASE NOTE NEW REFERENCE RANGES. 80 TEST PERFORMED BY: [employer]. [id number] [place] [address] 81 . A negative result does not preclude the presence of a C.trachomatis or N.gonorrhoeae infection because results are dependent on adequate specimen collection, absence of inhibitors, and sufficient rRNA to be detected. Test results may be affected by improper specimen collection, improper specimen storage, technical error, or specimen mixup. . 82 . A negative result does not preclude the presence of a C.trachomatis or N.gonorrhoeae infection because results are dependent on adequate specimen collection, absence of inhibitors, and sufficient rRNA to be detected. Test results may be affected by improper specimen collection, improper specimen storage, technical error, or specimen mixup. . 83 Lymphopenia % 84 Anion gap measurement may be of limited value in the presence of any alkalosis, especially in a combined acid base disorder. . 85 PLEASE NOTE NEW REFERENCE RANGE EFFECTIVE 07 ASSAY BY IMMUNOCHEMILUMINOMETRIC ASSAY ON THE [employer] DXI-800. VALUES OBTAINED WITH DIFFERENT METHODS OR KITS CANNOT BE USED INTERCHANGEABLY FOR PATIENT MONITORING. RESULTS CANNOT BE INTERPRETED ABSOLUTE EVIDENCE OF THE PRESENCE OR ABSENCE OF MALIGNANCY. THE TEST IS NOT INTERPRETABLE IN . TEST PERFORMED BY: [employer]. [id number] [place] [address] 86 FINAL INTERPRETATION: No HIV antibody is detected. . This information has been disclosed to you from confidential records which are protected by [place] State law. State law prohibits you from making further disclosure of this information without the specific written consent of the person to whom it pertains, or as otherwise permitted by law. Any unauthorized further disclosure in violation of state law may result in a fine or usp sentence or both. General authorization for the release of medical or other information is not, except in limited circumstances set forth in Part 63, Title 10, of [place]CRR, sufficient authorization for further disclosure. Disclosure of confidential HIV information that occurs as the result of a general authorization for the release of medical or other information will be in violation of the state law and may result in a fine or a usp sentence. . 87 PLEASE NOTE NEW REFERENCE RANGES. 88 MANY [ESCHERICHIA COLI] 100^75-100,000 ORGANISMS/ML (MANY)^CCU ESCHERICHIA COLI 89 Classification: Borderline High . 90 Classification: High . 91 CALCULATED LDL APPROXIMATES THE VALUE OF A DIRECT LDL MEASUREMENT. Classification: Optimal Level . 92 ASSAY BY IMMUNOCHEMILUMINOMETRIC ASSAY ON THE [employer] DXI-800. VALUES OBTAINED WITH DIFFERENT METHODS OR KITS CANNOT BE USED INTERCHANGEABLY FOR PATIENT MONITORING. RESULTS CANNOT BE INTERPRETED ABSOLUTE EVIDENCE OF THE PRESENCE OR ABSENCE OF MALIGNANCY. THE TEST IS NOT INTERPRETABLE IN . TEST PERFORMED BY: [employer]. [id number] [place] [address] 93 Anion gap measurement may be of limited value in the presence of any alkalosis, especially in a combined acid base disorder. . 94 FASTING FASTING 95 Anion gap measurement may be of limited value in the presence of any alkalosis, especially in a combined acid base disorder. . 96 Classification: Desirable . 97 Classification: High . 98 CALCULATED LDL APPROXIMATES THE VALUE OF A DIRECT LDL MEASUREMENT. Classification: Optimal Level . 99 ASSAY BY MICROPARTICLE ENZYME IMMUNOASSAY ON THE [employer] IMMULITE 2000. VALUES OBTAINED WITH DIFFERENT METHODS OR KITS CANNOT BE USED INTERCHANGEABLY FOR PATIENT MONITORING. RESULTS CANNOT BE INTERPRETED ABSOLUTE EVIDENCE OF THE PRESENCE OR ABSENCE OF MALIGNANCY. THE TEST IS NOT INTERPRETABLE IN . TEST PERFORMED BY: [employer]. [address] [place] [address] 10 Anion gap measurement may be of limited value in the 0 presence of any alkalosis, especially in a combined acid base disorder. . 10 Classification: Borderline High 1 . 10 Classification: High 2 . 10 3 CALCULATED LDL APPROXIMATES THE VALUE OF A DIRECT LDL MEASUREMENT. Classification: Optimal Level . Procedures Date Code Description Status 03/26/2012 25679 Removal-Impacted Cerumen Completed 03/25/2011 44977 EKG, at Least 12 Leads w/Interpretation and Report Completed 01/26/2011 52405 Removal-Impacted Cerumen Completed 09/07/2010 [id number] Colonoscopy Completed 06/11/2009 21831 Removal-Impacted Cerumen Completed 05/28/2008 95280 Removal-Impacted Cerumen Completed 04/28/2005 30236 EKG, at Least 12 Leads w/Interpretation and Report Completed 04/28/2005 75756 Removal-Impacted Cerumen Completed 10/31/2003 04913 Therapeutic Injection (Specify Material Injected) Completed 04/04/2002 17077 Removal-Impacted Cerumen Completed 04/04/2002 74817 Removal-Impacted Cerumen Completed Encounters Type Date Location [...] Main Office Louisa Pugh, 466.0 Bronchitis Acute 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 Medical Routine AT Health Care Facility [...] Main Office Vidya Robledo V72.84 Examination Storm, [employer] Preoperative Unspec 366.8 Cataract Other 401.9 Hypertension Unspec Office Visit 01/26/2011 10:15a Main Office Kajal Ramirez V70.0 Examination General Jason M.D. Medical Routine AT Health Care Facility [...] Other Rebecca Gomez Spec 401.9 Hypertension Unspec 780.52 Insomnia Unspecified 782.1 Rash & Other Nonspec Skin Eruption Office Visit 12/29/2009 12:00p Main Office Kajal Ramirez 780.52 Insomnia Jason MLeo Unspecified 244.8 Hypothyroidism Other Spec 401.9 Hypertension Unspec Office Visit 12/10/2009 10:30a Main Office Kajal Ramirez 780.52 Insomnia Rebecca Gomez Unspecified 807.06 FX Ribs Closed Six 244.8 Hypothyroidism Other Spec 401.9 Hypertension Unspec 388.70 Otalgia & Earache Unspec Office Visit 12/02/2009 Main Office Melissa 464.20 Laryngotracheitis Acute 3:45p AKILAH Izquierdo W/O Obstruction Office Visit 07/27/2009 Main Office Kajal Ramirez 807.06 FX Ribs Closed Six 1:30p Rebecca Gomez 780.52 Insomnia Unspecified Office Visit 06/03/2009 9:30a Main Office Kajal Ramirez V72.31 Routine Research Aide Rebecca Gomez Examination 244.8 Hypothyroidism Other Spec 401.9 Hypertension Unspec 070.54 Hepatitis C Viral Chronic W/O Hepatic Coma 380.4 Impacted Cerumen Office Visit 05/06/2009 11:30a Main Office Crystal Parisi 599.0 UTI Urinary Tract Miladis MendietaPChapoCChapo Infection Site Not Spec V04.81 Need For [...] Main Office Crystal Parisi 311 Depressive Disorder Anam, F.N.P.C. Not Elsewhere Spec 244.8 Hypothyroidism Other Spec Office Visit 04/26/2007 9:00a Main Office Kajal Ramirez V72.31 Routine Research Aide Rebecca Gomez Examination 401.9 Hypertension Unspec 070.54 Hepatitis C Viral Chronic W/O Hepatic Coma 493.90 Asthma Unspec W/O Status Asthmaticus V04.81 Need For Prophylactic Vaccination & Inoculation/Influenza Office Visit 01/15/2007 2:00p Main Office Kajal Ramirez 595.0 Cystitis Acute Rebecca Gomez Office Visit 01/08/2007 2:00p Main Office Crystal Parisi 112.82 Candidal Otitis Anam, Externa F.N.P.C. Office Visit 04/28/2006 9:45a Main Office Kyle Ji, 401.9 Hypertension Unspec M.D. 070.54 Hepatitis C Viral Chronic W/O Hepatic Coma 493.90 Asthma Unspec W/O Status Asthmaticus V70.0 Examination General Medical Routine AT Health Care Facility V76.9 Screening Malignant Neoplasm Unspec Office Visit 04/28/2005 8:30a Main Office Kyle Ji, 401.9 Hypertension Unspec M.D. 380.4 Impacted Cerumen Office Visit 04/25/2005 12:45p Main Office Kyle Ji, 401.9 Hypertension Unspec [...] Tear Of Medial Cartilage Or Meniscus Curren 405.19 Hypertension Secondary Other Benign 070.54 Hepatitis C Viral Chronic W/O Hepatic Coma Office Visit 10/11/2004 3:00p Main Office Kyle Ji 836.0 Dislocation Knee M.D. Tear Of Medial Cartilage Or Meniscus Curren Office Visit 04/23/2004 8:45a Main Office Kyle Ji, 070.54 Hepatitis C Viral M.D. Chronic W/O Hepatic Coma 493.90 Asthma Unspec W/O Status Asthmaticus 405.19 Hypertension Secondary Other Benign V76.9 Screening Malignant Neoplasm Unspec v70.0 Examination General Medical Routine AT Health Care Facility Office Visit 10/31/2003 3:00p Main Office Valente Olmstead M.D. 681.00 Cellulitis & Abscess Finger Unspec Office Visit 11/11/2002 3:15p Main Office Kyle Ji, 070.54 Hepatitis C Viral M.D. 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 Status Asthmaticus 401.9 Hypertension Unspec 724.2 Lumbago 380.4 Impacted Cerumen Plan of Treatment Future Appointment(s):08/22/2018 3:00 pm - Kajal Gomez M.D. at Main Office
[2018-09-17 21:16] LABS: ABS Basophils 0 10^3/ul (0-0.2); ABS Eosinophils 0.1 10^3/ul (0-0.6); ABS Monocytes 0.4 10^3/ul (0-0.8); ABS Neutrophils 4.9 10^3/ul (1.5-7.7); ABS Nucleated RBC 0 10^3/ul; Eosinophil % 0.9 %; Hematocrit 43 % (35-47); Hemoglobin 14.1 g/dl (12.0-16.0); Lymphocyte % 15.1 %; Mean Corpuscular HGB Conc 33 g/dl (31-36); Mean Corpuscular Hemoglobin 29 pg (27-31); Mean Corpuscular Volume 89 fL (80-97); Mean Platelet Volume 9.1 fL (7.4-10.4); Nucleated Red Blood Cells % 0; Platelet Count 249 10^3/ul (150-450); Red Blood Count 4.88 10^6/ul (4.00-5.40); Red Cell Distribution Width 13 % (10.5-15); White Blood Count 6.3 10^3/ul (3.5-10.8)
[2018-09-17 21:33] LABS: Albumin 3.6 g/dL (3.2-5.2); BUN/Creatinine Ratio 24.6 (8-20); Calcium 9.8 mg/dL (8.6-10.3); EGFR African American 104.6 (>60); EGFR Non-African American 86.4 (>60); Globulin 3.5 g/dL (2-4); Potassium 4.9 mmol/L (3.5-5.0); Total Bilirubin 0.6 mg/dL (0.2-1.0); Total Protein 7.1 g/dL (6.4-8.9)
[2018-09-17 22:43] LABS: Urine Appearance Clear; Urine Bilirubin Negative (Negative); Urine Blood Negative (Negative); Urine Color Yellow; Urine Glucose Negative (Negative); Urine Ketones Negative (Negative); Urine Nitrite Negative (Negative); Urine Protein Negative (Negative); Urine Specific Gravity 1.014 (1.010-1.030); Urine Urobilinogen Positive (Negative)
--- NOTE | 2018-09-18 00:12 | ED ---
Neurological HPI - HPI Summary HPI Summary: The patient is an 88 y/o F presenting to [facility] accompanied by personal care attendant with a chief complaint of confusion today with sudden onset with generalized weakness and slurred speech this morning that has since resolved. She additionally c/o nausea that has also resolved, and a cough that is still present. She has hx of hypotension. 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 Onset/Duration: Sudden Onset, Resolved Timing: Sudden Onset Onset Severity: Moderate Current Severity: Mild Pain Intensity: 0 Pain Scale Used: 0-10 Numeric Character: Weak, Impaired Speech Aggravating: Nothing Alleviating: Nothing Associated Signs and Symptoms: Positive: Confusion, Weakness - general, resolved , Impaired Speech - resolved - Additional Pertinent History Primary Care Physician: [id number] - Allergy/Home Medications Allergies/Adverse Reactions: Allergies Allergy/AdvReac Type Severity Reaction Status Date / Time egg Allergy Unknown Verified 07/20/18 11:57 Reaction Details milk Allergy Unknown Verified 07/20/18 11:57 Reaction Details Milk Containing Products Allergy Unknown Verified 07/20/18 11:57 Reaction Details soy Allergy Unknown Verified 07/20/18 11:57 Reaction Details PMH/Surg Hx/FS Hx/Imm Hx Endocrine/Hematology History: Denies: Hx Diabetes Cardiovascular History: Reports: Hx Hypertension Sensory History: Reports: Hx Contacts or Glasses Denies: Hx Hearing Aid Opthamlomology History: Reports: Hx Contacts or Glasses - Surgical History Surgery Procedure, Year, and Place: none Infectious Disease History: No Infectious Disease History: Denies: Traveled Outside the [place] in Last 30 Days - Family History Known Family History: Positive: Unknown - patient is unsure - Social History Alcohol Use: None Hx Substance Use: No Substance Use Type: Reports: None Hx Tobacco Use: Yes Smoking Status (MU): Former Smoker Review of Systems Positive: Cough Neurological: Other - confusion Positive: Weakness - this morning, seemed to resolve, Slurred Speech - this morning, seemed to resolve All Other Systems Reviewed And Are Negative: Yes Physical Exam - Summary Physical Exam Summary: Appearance: Elderly woman in no acute distress, Well-appearing, Well-nourished, lying in bed comfortably Skin: Warm, dry, no obvious rash Eyes: sclera anicteric, no conjunctival pallor ENT: mucous membranes moist, pharynx appears normal Neck: Supple, nontender Respiratory: Clear to auscultation, no signs of respiratory distress Cardiovascular: Normal S1, S2. No murmurs. Normal distal pulses in tibial and radial bilaterally. Abdomen: Soft, nontender, normal active bowel sounds present Musculoskeletal: Normal, Strength/ROM Intact Neurological: A&Ox3, awake and alert, mentation is normal, speech is fluent and appropriate, GCS: 15 Psychiatric: affect is normal, does not appear anxious or depressed Triage Information Reviewed: Yes Vital Signs On Initial Exam: Initial Vitals Temp Pulse Resp BP Pulse Ox 98.1 F 77 18 178/95 98 09/17/18 17:54 09/17/18 17:54 09/17/18 17:54 09/17/18 17:54 09/17/18 17:54 Vital Signs Reviewed: Yes - Rayray Coma Scale Best Eye Response: 4 - Spontaneous Best Motor Response: 6 - Obeys Commands Best Verbal Response: 5 - Oriented Coma Scale Total: 15 Diagnostics - Vital Signs Vital Signs Temp Pulse Resp BP Pulse Ox 09/17/18 23:00 77 95 09/17/18 22:52 72 185/89 96 09/17/18 22:21 86 174/82 96 09/17/18 22:07 72 96 09/17/18 21:52 86 180/102 97 09/17/18 20:59 98.2 F 73 16 178/88 97 09/17/18 19:14 98.3 F 75 16 188/98 95 09/17/18 17:54 98.1 F 77 18 178/95 98 - Laboratory Lab Results: Lab Results 09/17/18 09/17/18 09/17/18 Range/Units 21:09 21:09 21:09 WBC 6.3 (3.5-10.8) 10^3/ul RBC 4.88 (4.00-5.40) 10^6/ul Hgb 14.1 (12.0-16.0) g/dl Hct 43 (35-47) % MCV 89 (80-97) fL MCH 29 (27-31) pg MCHC 33 (31-36) g/dl RDW 13 (10.5-15) % Plt Count 249 (150-450) 10^3/ul MPV 9.1 (7.4-10.4) fL Neut % (Auto) 77.1 % Lymph % (Auto) 15.1 % Placer % (Auto) 6.8 % Eos % (Auto) 0.9 % Baso % (Auto) 0.1 % Absolute Neuts (auto) 4.9 (1.5-7.7) 10^3/ul Absolute Lymphs (auto) 1.0 (1.0-4.8) 10^3/ul Absolute Monos (auto) 0.4 (0-0.8) 10^3/ul Absolute Eos (auto) 0.1 (0-0.6) 10^3/ul Absolute Basos (auto) 0 (0-0.2) 10^3/ul Absolute Nucleated RBC 0 10^3/ul Nucleated RBC % 0 Sodium 138 (135-145) mmol/L Potassium 4.9 (3.5-5.0) mmol/L Chloride 102 (101-111) mmol/L Carbon Dioxide 30 (22-32) mmol/L Anion Gap 6 (2-11) mmol/L BUN 16 (6-24) mg/dL Creatinine 0.65 (0.51-0.95) mg/dL Est GFR ( Amer) 104.6 (>60) Est GFR (Non-Af Amer) 86.4 (>60) BUN/Creatinine Ratio 24.6 H (8-20) Glucose 92 (70-100) mg/dL Lactic Acid 1.0 (0.5-2.0) mmol/L Calcium 9.8 (8.6-10.3) mg/dL Total Bilirubin 0.60 (0.2-1.0) mg/dL AST 44 H (13-39) U/L ALT 33 (7-52) U/L Alkaline Phosphatase 63 (34-104) U/L Troponin I 0.00 (<0.04) ng/mL Total Protein 7.1 (6.4-8.9) g/dL Albumin 3.6 (3.2-5.2) g/dL Globulin 3.5 (2-4) g/dL Albumin/Globulin Ratio 1.0 (1-3) Urine Color Urine Appearance Urine pH (5-9) Ur Specific [place] (1.010-1.030) Urine Protein (Negative) Urine Ketones (Negative) Urine Blood (Negative) Urine Nitrate (Negative) Urine Bilirubin (Negative) Urine Urobilinogen (Negative) Ur Leukocyte Esterase (Negative) Urine Glucose (Negative) 09/17/18 Range/Units 22:30 WBC (3.5-10.8) 10^3/ul RBC (4.00-5.40) 10^6/ul Hgb (12.0-16.0) g/dl Hct (35-47) % MCV (80-97) fL MCH (27-31) pg MCHC (31-36) g/dl RDW (10.5-15) % Plt Count (150-450) 10^3/ul MPV (7.4-10.4) fL Neut % (Auto) % Lymph % (Auto) % [place] % (Auto) % Eos % (Auto) % Baso % (Auto) % Absolute Neuts (auto) (1.5-7.7) 10^3/ul Absolute Lymphs (auto) (1.0-4.8) 10^3/ul Absolute Monos (auto) (0-0.8) 10^3/ul Absolute Eos (auto) (0-0.6) 10^3/ul Absolute Basos (auto) (0-0.2) 10^3/ul Absolute Nucleated RBC 10^3/ul Nucleated RBC % Sodium (135-145) mmol/L Potassium (3.5-5.0) mmol/L Chloride (101-111) mmol/L Carbon Dioxide (22-32) mmol/L Anion Gap (2-11) mmol/L BUN (6-24) mg/dL Creatinine (0.51-0.95) mg/dL Est GFR ( Amer) (>60) Est GFR (Non-Af Amer) (>60) BUN/Creatinine Ratio (8-20) Glucose (70-100) mg/dL Lactic Acid (0.5-2.0) mmol/L Calcium (8.6-10.3) mg/dL Total Bilirubin (0.2-1.0) mg/dL AST (13-39) U/L ALT (7-52) U/L Alkaline Phosphatase (34-104) U/L Troponin I (<0.04) ng/mL Total Protein (6.4-8.9) g/dL Albumin (3.2-5.2) g/dL Globulin (2-4) g/dL Albumin/Globulin Ratio (1-3) Urine Color Yellow Urine Appearance Clear Urine pH 6.0 (5-9) Ur Specific [place] 1.014 (1.010-1.030) Urine Protein Negative (Negative) Urine Ketones Negative (Negative) Urine Blood Negative (Negative) Urine Nitrate Negative (Negative) Urine Bilirubin Negative (Negative) Urine Urobilinogen Positive A (Negative) Ur Leukocyte Esterase Negative (Negative) Urine Glucose Negative (Negative) Result Diagrams: 09/18/18 05:44 09/18/18 05:44 Lab Statement: Any lab studies that have been ordered have been reviewed, and results considered in the medical decision making process. - CT Brain CT CT Interpretation Completed By: Radiologist Summary of CT Findings: 1. There has been no change since 07/23/2018. No acute interval intracranial process is identified. 2. Minimal chronic ischemic white matter change and atrophy. ED physician has reviewed this report. - EKG 2205 Cardiac Rate: NL - 81 BPM EKG Rhythm: Sinus Rhythm Summary of EKG Findings: NSR at 81BPM, P waves, QRS complex, and T waves are within normal limits, T waves and intervals are normal, no ischemic changes. This is a normal EKG. Course/Dx - Course Course Of Treatment: The patient is an 88 y/o F presenting to [facility] accompanied by personal care attendant with a chief complaint of confusion today with sudden onset with generalized weakness and slurred speech this morning that has since resolved. She additionally c/o nausea that has also resolved, and a cough that is still present. She has hx of hypotension. Upon physical examination, the patient is an elderly woman in no acute distress with an otherwise normal exam. Bloodwork reveals elevated BUN/Creatinine ratio and AST. UA reveals positive urobilinogen. EKG is normal. Brain CT is negative. I spoke with Dr. Blank, who accepts the patient for admission at 0100. She is diagnosed with TIA. She agrees with this plan and understands the need for admission at this time. - Diagnoses Provider Diagnoses: TIA (transient ischemic attack) - Physician Notifications Discussed Care Of Patient With: Judson Blank - hospitalist Time Discussed With Above Provider: 01:00 Instructed by Provider To: Other - Dr. Caballes accepts the patient for admission. Discharge - Sign-Out/Discharge Documenting (check all that apply): Patient Departure - Patient will be admitted to [facility] for further care. Patient Received Moderate/Deep Sedation with Procedure: No - Discharge Plan Condition: Fair Disposition: ADMITTED TO [facility] - Billing Disposition and Condition Condition: FAIR Disposition: Admitted to [facility] - Attestation Statements Document Initiated by Moni: Yes Documenting Scribe: Angy Guillen Provider For Whom Moni is Documenting (Include Credential): Dr. Hi Doss MD Scribe Attestation: Angy Walker scribed for Dr. Hi Doss MD on 09/19/18 at 0418. Scribe Documentation Reviewed: Yes Provider Attestation: The documentation as recorded by the Angy cutler accurately reflects the service I personally performed and the decisions made by me, Dr. Hi Doss MD Status of Scribcharla Document: Viewed
[2018-09-18] MEDS ORDERED: traZODone TAB* 50 MG TAB PO PRN (02:27)
[2018-09-18] MEDS ORDERED: hydrALAZINE IV* 20 MG/ML VIAL IV SLOW PU PRN (02:40)
[2018-09-18 03:04] LABS: ABS Basophils 0.1 10^3/ul (0-0.2); ABS Eosinophils 0.1 10^3/ul (0-0.6); ABS Monocytes 0.4 10^3/ul (0-0.8); ABS Nucleated RBC 0 10^3/ul; Hematocrit 44 % (35-47); Hemoglobin 14.1 g/dl (12.0-16.0); Lymphocyte % 15.8 %; Mean Corpuscular HGB Conc 32 g/dl (31-36); Mean Corpuscular Hemoglobin 29 pg (27-31); Mean Corpuscular Volume 89 fL (80-97); Mean Platelet Volume 9.4 fL (7.4-10.4); Nucleated Red Blood Cells % 0; Platelet Count 216 10^3/ul (150-450); Red Blood Count 4.89 10^6/ul (4.00-5.40); Red Cell Distribution Width 13 % (10.5-15); White Blood Count 6.6 10^3/ul (3.5-10.8)
[2018-09-18 03:19] LABS: Albumin 3.3 g/dL (3.2-5.2); BUN/Creatinine Ratio 25.8 (8-20); Calcium 9.2 mg/dL (8.6-10.3); EGFR African American 110.4 (>60); EGFR Non-African American 91.3 (>60); Globulin 3.2 g/dL (2-4); HDL Cholesterol 51.8 mg/dL; Magnesium 1.7 mg/dL (1.9-2.7); Potassium 3.3 mmol/L (3.5-5.0); Total Bilirubin 0.6 mg/dL (0.2-1.0); Total Protein 6.5 g/dL (6.4-8.9)
[2018-09-18 04:07] LABS: TSH (Thyroid Stimulating Horm) 4.24 mcIU/mL (0.34-5.60)
--- NOTE | 2018-09-18 04:29 | HP ---
ADMITTING HISTORY AND PHYSICAL: DATE OF ADMISSION: 09/18/18 CHIEF COMPLAINT: Weakness with aphasia. HISTORY OF PRESENT ILLNESS: The patient is an 88-year-old lady with a history of dementia who, unfortunately, is a poor historian and unclear as to what led to her presentation in the ED, but when I spoke with Dr. Cortez, he mentioned that the patient presented with weakness as well as aphasia that was ephemeral and resolved within 30 [address] of the brain in the ED was negative for acute disease, although it is noted that she does have some minimal chronic ischemic white matter change and atrophy. PAST MEDICAL HISTORY: 1. Hypertension. 2. Hypothyroidism. 3. Asthma. 4. Chronic hepatitis C, declined treatment in the past. 5. Elevated ammonia levels of unclear cause. 6. History of dementia. PAST SURGICAL HISTORY: Status post hysterectomy, appendectomy, and cataract surgery. MEDICATIONS: Her current home medications are: 1. Tylenol. 2. Combination benazepril/hydrochlorothiazide. 3. Lactulose. 4. Levothyroxine. 5. Melatonin. 6. Quetiapine. ALLERGIES: Eggs and cheese. She is also allergic to chocolate and milk and drinks a special type of milk, but unclear what this is. FAMILY HISTORY: She mentions that her sister is a breast cancer survivor. Her father at the age of 76 of an GA and one daughter committed suicide due to depression. Another daughter is in [place] and an estranged son. SOCIAL HISTORY: She is documented to be living alone from her prior admission, but mentions that she lives with friends at this time named Anatoly and Barrera Mchugh. Her surrogate decision maker per her previous medical records is her ip attorney, Freddie Rodriguez, in the event that she is unable to make her own decisions. She is a DNR. REVIEW OF SYSTEMS: The patient is a poor historian and mentioned that she feels fine and she cannot sleep at night, but other than this denied any headaches, dizziness, fevers, chills, nausea, vomiting, chest pain, shortness of breath, increased cough, sputum production, abdominal pain, diarrhea, constipation, pain, and/or increased frequency in urination, myalgias, arthralgias, throat pain, or new skin lesions. The rest of the 14-point review of systems are, otherwise, unremarkable. PHYSICAL EXAMINATION GENERAL APPEARANCE: The patient is awake, confused, oriented to person, but not to the name of the town, although oriented to the name of the county that she is in. She is not oriented to the month, but oriented to the year. She is unaware of the current situation that she finds herself in. Otherwise, not in acute distress. VITAL SIGNS: Reveals the most recent vital signs of records with blood pressure of 172/88, with 96% saturation on room air, 78 beats per minute heart rate, 16 per minute respiratory rate. HEENT: Normocephalic and atraumatic. PERRLA. Extraocular muscles intact. Negative for icterus. Moist oral mucosa. Negative throat erythema. NECK: Soft and supple with no cervical lymphadenopathy and no JVD. CHEST: Clear to auscultation bilaterally. Good air entry. No wheezes, rales, or rhonchi. HEART: S1 and S2, within normal limits. Regular rate and rhythm. No murmurs, rubs, or gallops. ABDOMEN: Soft, nondistended, and nontender. Normoactive bowel sounds x4 quadrants. EXTREMITIES: No cyanosis, clubbing, or edema. PSYCHIATRIC: No active psychosis, depression, suicidal nor homicidal ideation. SKIN: Warm to touch. DIAGNOSTIC STUDIES/LAB DATA: Most recent and pertinent laboratories drawn shows CBC with a normal WBC, platelet count, and H and H. Sodium and potassium , BUN and creatinine were all found to be normal. Urinalysis shows specific gravity of 1.014 with negative pyuria. Brain CT shows no acute disease. EKG shows first-degree AV block with a RI interval of 239 msec, 81 beats per minute with a QTc of [address]-segment changes. ASSESSMENT AND PLAN: The patient is an 88-year-old lady with a history of hypertension, hypothyroidism as well as confusion secondary to unexplained elevated ammonia level/hyperammonemia being admitted for confusion as well as aphasia for possible transient ischemic attack versus hyperammonemic confusion. 1. Aphasia. The patient's head CT, as mentioned, did not show any acute symptoms. We will obtain an MRI of her head as well as 2D echo with bubble study as well as carotid Dopplers to complete her transient ischemic attack/ cerebrovascular accident workup. I will also check fasting lipid levels as well. However, it is also possible that her aphasia and weakness may be caused by some form of confusion on top of her mild dementia. 2. Hypertension, uncontrolled. Benazepril is, unfortunately, not formulary, but can be changed one-to-one with lisinopril and hence, we will place the patient on lisinopril/hydrochlorothiazide as per home medications. We will provide p.r.n. hydralazine for breakthroughs. 3. Hypothyroidism. We will check TSH, especially in the setting of aphasia. 4. Insomnia. Continue melatonin and we will place the patient on p.r.n. trazodone. 5. Dementia with behavioral issues. Continue quetiapine. 6. DVT prophylaxis. We will place the patient on heparin subcu q.12. 7. Disposition. For PT evaluation as above. [id number]/[facility] #: [id number] JUNG
[2018-09-18 05:51] LABS: ABS Basophils 0.1 10^3/ul (0-0.2); ABS Eosinophils 0.1 10^3/ul (0-0.6); ABS Monocytes 0.5 10^3/ul (0-0.8); ABS Neutrophils 4.8 10^3/ul (1.5-7.7); ABS Nucleated RBC 0 10^3/ul; Hematocrit 43 % (35-47); Hemoglobin 14.2 g/dl (12.0-16.0); Lymphocyte % 15.4 %; Mean Corpuscular HGB Conc 33 g/dl (31-36); Mean Corpuscular Hemoglobin 29 pg (27-31); Mean Corpuscular Volume 89 fL (80-97); Mean Platelet Volume 9.2 fL (7.4-10.4); Nucleated Red Blood Cells % 0.1; Platelet Count 242 10^3/ul (150-450); Red Blood Count 4.83 10^6/ul (4.00-5.40); Red Cell Distribution Width 13 % (10.5-15); White Blood Count 6.5 10^3/ul (3.5-10.8)
[2018-09-18] MEDS ORDERED: Levothyroxine TAB* 25 MCG TAB PO SCH (06:00)
[2018-09-18 06:02] LABS: Activated Partial Thrombo Time 35.2 seconds (26.0-36.3); INR 0.86 (0.77-1.02)
[2018-09-18 06:38] LABS: EGFR African American 116.9 (>60); EGFR Non-African American 96.6 (>60)
[2018-09-18] MEDS ORDERED: Heparin VIAL(*) 5000 UNITS/ML VIAL (FIVE THOUSAND) SUBCUT SCH (09:00)
[2018-09-18] MEDS ORDERED: Clopidogrel TAB* 75 MG PO SCH (09:00)
[2018-09-18] MEDS ORDERED: Hydrochlorothiazide TAB* 25 MG PO SCH (09:00)
[2018-09-18] MEDS ORDERED: Aspirin 81 mg CHEW TAB* 81 MG TAB.CHEW PO SCH (09:00)
[2018-09-18] MEDS ORDERED: Lisinopril TAB* 10 MG PO SCH (09:00)
--- NOTE | 2018-09-18 10:45 | ECHO ---
Patient: KALEB ROAJS [facility] Rec#: [id number] : 1930 Date: 09/18/2018 Age: 88y Height: 162.6 cm / 64.0 in Weight: 54.4 kg / 119.9 lbs Sex: F BSA: 1.6 Room#: 437 Admit Date#: 09/18/2018 Type: Inpatient Referring: Judson Blank Reading: Leobardo Buregss MD Materials Planning Analyst: Sera England RN RDCS CC: Kajal Gomez MD Transthoracic Echocardiogram Indication: TIA BP: 160/82 HR: 77 Rhythm: NSR with PACs Findings History: HTN, HLD, thyroid disease, hiatal hernia, asthma, hepatitis C, dementia Technical Comments: The study quality is fair. Left Ventricle: The left ventricular chamber size is normal. There is increased basal septal hypertrophy noted without evidence of an increased gradient across the left ventricular outflow tract. The septal knuckle measures 1.5cm. Global left ventricular wall motion and contractility are within normal limits. There is normal left ventricular systolic function. The estimated ejection fraction is 55-60%. Abnormal left ventricular diastolic function is observed. Left Atrium: The left atrial chamber size is normal. Right Ventricle: The right ventricular chamber size and systolic function are within normal limits. Right Atrium: The right atrial cavity size is normal. The bubble study is negative. A patent foramen ovale is not demonstrated with color Doppler and agitated contrast. Aortic Valve: The aortic valve is trileaflet. The aortic valve leaflets are mildly thickened. There is a trace of aortic regurgitation. There is no evidence of aortic stenosis. Mitral Valve: Moderate mitral annular calcification present. The mitral valve leaflets are mildly thickened. There is mild mitral regurgitation. There is borderline mitral stenosis. The mean gradient across the mitral valve is 3 mmHg. The peak gradient across the mitral valve is 5.6 mmHg. The pressure half time of the mitral valve is 111 msec. The mitral valve area, by pressure half time, is calculated at 2 cm2. Tricuspid Valve: The tricuspid valve leaflets are normal. There is mild tricuspid regurgitation. There is evidence of mild pulmonary hypertension. There is no tricuspid stenosis. Pulmonic Valve: The pulmonic valve appears normal. There is mild pulmonic regurgitation. There is no pulmonic stenosis. Pericardium: There is no significant pericardial effusion. Aorta: There is no dilatation of the ascending aorta. There is no dilatation of the aortic arch. There is no dilation of the aortic root. Pulmonary Artery: The main pulmonary artery appears normal. Venous: The inferior vena cava appears normal in size. There is a greater than 50% respiratory change in the inferior vena cava dimension. Contrast: Normal saline was used as contrast for the bubble study. Images 1 and 2. Conclusions Global left ventricular wall motion and contractility are within normal limits. There is increased basal septal hypertrophy noted without evidence of an increased gradient across the left ventricular outflow tract. The septal knuckle measures 1.5cm. The estimated ejection fraction is 55-60%. A patent foramen ovale is not demonstrated with color Doppler and agitated contrast. There is a trace of aortic regurgitation. There is mild mitral regurgitation. There is borderline mitral stenosis. The mean gradient across the mitral valve is 3 mmHg. There is mild tricuspid regurgitation. There is evidence of mild pulmonary hypertension. There is no significant pericardial effusion. Compared to study of 07/02/09, there is no significant change Measurements Name Value Normal Range RVDdMajor (2D) 2.7 cm (2.2 - 4.4) RAd ISD 4CH 4 cm (3.4 - 4.9) RA (A4C)W 3.6 cm (2.9 - 4.6) IVSd (2D) 1 cm (0.6 - 1) LVPWd (2D) 1 cm (0.6 - 1) LVIDd (2D) 3.1 cm (3.6 - 5.4) LVIDs (2D) 2.1 cm - LV FS (2D) 32 % (25 - 45) Aortic Annulus 1.8 cm (1.4 - 2.6) Ao root diameter (2D) 2.8 cm (2.1 - 3.5) Ascending Ao 2.5 cm (2.1 - 3.4) Aortic arch 2 cm (1.8 - 3.4) LA dimension (AP) 2D 3.2 cm (2.3 - 3.8) LAd ISD 4CH 4.2 cm (2.9 - 5.3) LA ISD 4CH W 3.9 cm (2.5 - 4.5) Name Value Normal Range LA ESV SP 4CH (A/L) 46 ml - LA ESV SP 2CH (A/L) 50 ml - LA ESV BP (A/L) 49 ml - LA ESV BP (A/L) index 31 ml/m2 - LA ESV SP 4CH (MOD) 40 ml - LA ESV SP 2CH (MOD) 49 ml - Name Value Normal Range MV E-wave Vmax 1.1 m/sec - MV deceleration time 326 msec - MV A-wave Vmax 1.1 m/sec - MV E:A ratio 1 ratio - LV septal e' Vmax 0.05 m/sec - LV lateral e' Vmax 0.07 m/sec - LV E:e' septal ratio 22 ratio - LV E:e' lateral ratio 15.7 ratio - Name Value Normal Range AV Vmax 1.1 m/sec - AV VTI 25.9 cm - AV peak gradient 5 mmHg - AV mean gradient 3 mmHg - LVOT Vmax 0.8 m/sec - LVOT VTI 18.1 cm - LVOT peak gradient 3 mmHg - LVOT mean gradient 2 mmHg - SANDRA Vmax 0.5 m/sec - Name Value Normal Range MV Vmax 1.2 m/sec - MV VTI 34.3 cm - MV peak gradient 5.6 mmHg - MV mean gradient 3 mmHg - MV PHT 111 msec - MVA (PHT) 2 cm2 - Name Value Normal Range TR Vmax 2.9 m/sec - TR peak gradient 34 mmHg - RAP 3 mmHg - RVSP 37 mmHg - IVC diameter 1.1 cm - Name Value Normal Range PV Vmax 0.52 m/sec -
--- NOTE | 2018-09-18 13:57 | CONS ---
NEUROLOGY CONSULTATION: DATE OF CONSULT: 09/18/18 LOCATION: She is an inpatient, room 437. REFERRING PROVIDER: Dr. Kruger. CHIEF COMPLAINT: Increased confusion. HISTORY OF PRESENT ILLNESS: Bonnie Forte is an 88-year-old right handed woman who was brought into the hospital yesterday with an increase above her baseline confusion. I spoke with one of her caregivers who lives with her. She describes that Bonnie was brought into the hospital on 07/19/18 because of progressive decline in cognitive abilities and care for herself independently. She had a brief rehab stay and then moved in with her friends. Apparently, the male friend had been helping take care of Bonnie for a number of years until she could no longer live independently. She has had at least a couple of years of gradual decline in her cognitive abilities. Last evening she seems much more confused than she normally is. She had difficulty coming up with words and was more disoriented than usual. She was brought into the emergency room and because of the possibility of transient ischemic attack or other medical issues she was admitted. Today, she seems back to her baseline according to the young woman caregiver who lives with her. Bonnie has no complaints. She states that she came in to the hospital because she was more confused than usual. She states her memory is poor. She denies headaches, difficulty with word finding, or change in vision. PAST MEDICAL HISTORY: Notable for progressive dementia for several years, chronic hepatitis C that was deemed not to require treatment after biopsy, hyperammonemia, asthma, hypertension, hypothyroidism. MEDICATIONS AT HOME: Consist of: 1. Lactulose 10 mL p.o. t.i.d. 2. Benazepril/hydrochlorothiazide. 3. Melatonin q.h.s. 4. Levothyroxine. 5. Quetiapine q.h.s. ALLERGIES: She does not have any drug allergies, but she has some food allergies. FAMILY HISTORY: Notable for one daughter committing suicide, and another son is estranged. Her power of staff attorney is apparently her resin painter. REVIEW OF SYSTEMS: Notable for chronic cough and she was treated for pneumonia in June. History of chronic insomnia. She has great difficulty walking and requires the assist usually of one but yesterday she required the assist of two. She does not walk very much. She does not ambulate independently. She denies recent change in vision, double vision, and admits to have been confused last night. She does not remember how she got to the hospital. There is no prior history of stroke, seizures or head trauma. PHYSICAL EXAM: On exam, she is a somewhat tired appearing elderly woman lying in her hospital bed. Temperature is 97.7, blood pressure 150/66, heart rate in the 70s and regular, respiratory rate is 20 and oxygen saturation is 98% on room air. Heart is in a regular rhythm without murmurs heard. Neck is supple. There are no cervical bruits. Oral mucosa is moist and atraumatic. She has a dry cough. I do not hear any rales or rhonchi. On neurological exam, pupils react equally from 3 to 2 mm. Funduscopic exam reveals sharp disks bilaterally. Eye movements are normal and visual newsome are full to confrontation. Facial musculature is symmetric. Facial sensation to light touch is intact and symmetric. Palate and tongue appear normal, speech is soft but clear. Tongue protrudes in the midline. She is hard of hearing. Motor exam reveals some mild peritoneum but reasonable strength proximally and distally in the limbs. There is no drift of any limb. Sensory exam is intact to light touch in the limbs. Reflexes are diffusely hypoactive, absent at the ankles. Plantar responses are flexor on the right and equivocal on the left. There is no rest, sustention, or action tremor. Chxtut-fr-qvbk maneuver is slow but accurate. Finger taps are reasonably symmetrically. I did not attempt to ambulate her. She is awake but a bit sleepy. She is oriented to [facility]. She knows she is on the fourth floor. She does not know the month or the day of the month but knows the year and the season. She does not know the day of the week. She is pleasant, jocular and asked me if I want to know who the President is. She then tells me she is the only Libertarian in [facility]. DIAGNOSTIC STUDIES/LAB DATA: Includes a normal CBC, chemistry profile are notable for borderline elevated AST at 44 yesterday and 59 today, borderline elevated ammonia at 53. Cholesterol is 144, and LDL 58. The rest of the chemistry profiles are unremarkable. Her INR is normal at 0.86 and PTT at 35.2. Urinalysis is normal for positive urobilinogen but is otherwise negative. Echocardiogram done earlier today is interpreted as showing a normal left ventricular systolic function, abnormal left ventricular diastolic function. There is some mild alveolar changes but no other significant abnormalities. IMPRESSION: Impression is that of transient increased confusion in a patient with a gradually progressed dementia. I reviewed her CT of the brain, reveals atrophy which is more prominent bifrontally but is fairly global. There may be some patchy hypodensities in the subcortical white matter but no evidence of large infarction or acute changes. I suspect she has Alzheimer's disease. I am not sure why she decompensated, but her ammonia was a little bit elevated when she came in. She also has a cough which has been going on for several months. I have ordered an EEG. An MRI of the brain is pending. Dr. Blank also ordered a carotid ultrasound study. Her lactulose has been increased. In spite of her cough, there has been no evidence of hypoxia since she has been here or infection. I will continue to follow her along with you. [id number]/[facility] #: [id number] [facility] HE[facility] PARTNERSLyric
--- NOTE | 2018-09-18 15:29 | EEG ---
DATE OF STUDY: 09/18/2018. She is an inpatient in room 437. CHIEF COMPLAINT: Confusional episode in a patient with dementia. The episode was last evening. MEDICATIONS: Seroquel, Plavix, HydroDIURIL, Prinivil, Desyrel. EEG DESCRIPTION: This 16-channel EEG is remarkable for background rhythms consisting of fairly high voltage diffuse theta activity. There is some superimposed central and bifrontal beta rhythms. The patient is clinically awake. Blink and cough artifact is seen episodically through the tracing. Activation procedures are not attempted. The patient does not clearly drowse nor fall asleep during the recording. There are no focal, lateralized, or epileptiform abnormalities. INTERPRETATION: Abnormal EEG due to mild generalized slowing of background rhythms consistent with diffuse cerebral dysfunction. There are no focal or epileptiform features to this recording. [id number]/[facility] #: [id number] MTDD
[2018-09-18 16:04] VITALS: BP 143/58
[2018-09-18] MEDS ORDERED: Melatonin 3 MG TAB PO SCH (21:00)
[2018-09-18] MEDS ORDERED: QUEtiapine TAB* 25 MG PO SCH (21:00)
--- NOTE | 2018-09-18 22:30 | DS ---
CC: Dr. Kajal Gomez; Dr. Li * DISCHARGE SUMMARY: DATE OF ADMISSION: 09/18/18 DATE OF DISCHARGE: 09/18/18 PRIMARY CARE PROVIDER: Dr. Kajal Gomez. CONSULTING NEUROLOGIST: Dr. Li. DISCHARGE DIAGNOSIS: Possible transient ischemic attack. SECONDARY DIAGNOSES: 1. Hypertension. 2. Hypothyroidism. 3. Asthma. 4. Hepatitis C. 5. History of ammonia elevation. 6. Dementia, likely Alzheimer's. MEDICATION LIST: 1. Acetaminophen 650 mg p.o. q.4 hours p.r.n. pain or fever. 2. Benazepril/hydrochlorothiazide 20 mg/25 mg 1 tablet p.o. daily. 3. Lactulose 10 g p.o. daily with meals. 4. Levothyroxine 25 mcg p.o. every other day. 5. Melatonin 3 mg p.o. at bedtime. 6. Seroquel 25 mg p.o. at bedtime. New Medications: 1. Aspirin 81 mg p.o. daily for 30 days. 2. Plavix 75 mg p.o. daily. HOSPITAL COURSE: Ms. Forte is an 88-year-old lady with a past medical history as stated above who presented to the emergency room with report of increased confusion. Due to her dementia, the patient is not really able to provide any significant history, but one of her caregivers describes that yesterday the patient was having difficulty coming up with words and was more disoriented than usual. For more details of her presentation, I refer to her history and physical. The patient was admitted under the impression of possible TIA. Her workup included a CT of the brain that showed no acute change. MRI of the brain without contrast showed atrophy with chronic ischemic white matter change. No intracranial mass or hemorrhage. Carotid ultrasound showed [id number] plaque within the carotid bulbs and proximal internal carotid arteries, more prominent on the left side, but no hemodynamically significant stenosis is seen. Transthoracic echocardiogram showed ejection fraction of 55% to 60% with no PFO demonstrated. The patient was seen in consultation by neurology (Dr. Li) and his impression was of transient increased confusion in a patient with gradually progressive dementia. He was concerned with the possibility of a partial seizure and an EEG was performed showing mild generalized slowing of background rhythms consistent with diffuse cerebral dysfunction, but no focal or epileptiform features. We reviewed the case and the conclusion is she may have had a TIA. His recommendation was for 30 days of aspirin and Plavix in combination, followed by Plavix only. The patient's lipid profile showed an LDL of 58, so statins are not really indicated at this time, especially considering her age and dementia. Her blood pressure is fairly controlled and also considering her age, I do not think tighter blood pressure control would be beneficial She is medically stable for discharge today to follow up with Dr. Gomez next week and with Dr. Li in 4 weeks to make sure that she is down to Plavix monotherapy at that time. PHYSICAL EXAM: Vital Signs: Temperature 97.7, heart rate 68, respiratory rate is 20, oxygen saturation 99% on room air, blood pressure 143/58. General: The patient is a pleasant lady, sitting up in bed, in no acute distress. CVS: Normal S1 and S2. Regular rate and rhythm. Chest: Breath sounds bilaterally with no added sounds. Neuro: She is very hard of hearing, but alert, oriented to self and place, able to move all 4 extremities with no focal neuro deficits. DIET: Regular diet. ACTIVITIES: As tolerated. DISPOSITION: Home. STATUS WHILE IN THE HOSPITAL: Observation. CONDITION AT THE TIME OF DISCHARGE: Fair. Please keep in mind this is a summarized version of this patient's hospital stay. If you need more information , please feel free to call me at or please obtain the full medical records. TIME SPENT: Approximately 45 minutes were spent to complete this discharge. [id number]/[facility] #: [id number] JUNG
== END 2018-09-18 20:00 | disposition home or self-care (01) ==
LOC: ED 17:46 → MEDTELE 09-18 02:24
PROVIDERS: ADMIT Student in an Organized Health Care Education/Training Program; ATTEND Internal Medicine
DX: I10 Essential (primary) hypertension (principal); E03.9 Hypothyroidism, unspecified; R41.0 Disorientation, unspecified; R53.1 Weakness; Z87.891 Personal history of nicotine dependence; R05 Cough; J45.909 Unspecified asthma, uncomplicated; K75.9 Inflammatory liver disease, unspecified; F03.90 Unspecified dementia, unspecified severity, without behavioral disturbance, psychotic disturbance, mood disturbance, and anxiety; Z79.82 Long term (current) use of aspirin; R47.01 Aphasia; R47.81 Slurred speech
CPT/HCPCS: 36415; 70030; 70450; 70551; 71045; 74018; 80053; 80061; 81003; 82140; 82565; 83605; 83735; 84100; 84443; 84484; 84520; 85025; 85610; 85730; 87641; 93005; 93306; 93880; 95816; 96372; 96374; 96376; 99283; A9270-GY; G0378; G8978-GP-CI; G8979-GP-CI; G8980-GP-CI; J0360; J1644

== ENCOUNTER 2018-10-03 18:06 | Emergency (ER) | payer MEDICARE ==
--- NOTE | 2018-10-03 18:53 | ED ---
Psychiatric Complaint - HPI Summary HPI Summary: An 88 y/o female presents to [facility] with a chief complaint of SI. She was reported to have dementia but was able to correctly answer the year, where she is and who the president is. The patient denies smoking or EtOH use. At triage she rated her pain as a 0/10 in severity. She denies abdominal pain. - History Of Current Complaint Chief Complaint: EDSuicidal Time Seen by Provider: 10/03/18 18:40 Hx Obtained From: Patient Onset/Duration: Sudden Onset, Lasting Hours, Still Present Timing: Hours Severity Initially: Mild Severity Currently: None Character: Depressed Aggravating Factor(s): Nothing Alleviating Factor(s): Nothing Associated Signs And Symptoms: Negative: Hostile Has Suicidal: Reports: Thoughts Has Homicidal: Denies: Thoughts - Allergies/Home Medications Allergies/Adverse Reactions: Allergies Allergy/AdvReac Type Severity Reaction Status Date / Time egg Allergy Unknown Verified 10/03/18 18:32 Reaction Details milk Allergy Unknown Verified 10/03/18 18:32 Reaction Details Milk Containing Products Allergy Unknown Verified 10/03/18 18:32 Reaction Details soy Allergy Unknown Verified 10/03/18 18:32 Reaction Details PMH/Surg Hx/FS Hx/Imm Hx Endocrine/Hematology History: Denies: Hx Diabetes Cardiovascular History: Reports: Hx Hypertension Denies: Hx Pacemaker/ICD Sensory History: Reports: Hx Contacts or Glasses Denies: Hx Hearing Aid Opthamlomology History: Reports: Hx Contacts or Glasses Neurological History: Reports: Hx Dementia Psychiatric History: Denies: Hx Panic Disorder - Surgical History Surgery Procedure, Year, and Place: none Infectious Disease History: No Infectious Disease History: Denies: Traveled Outside the [place] in Last 30 Days - Family History Known Family History: Positive: Unknown - patient is unsure - Social History Alcohol Use: Occasionally Alcohol Amount: "Whenever I can" Hx Substance Use: No Substance Use Type: Reports: None Hx Tobacco Use: Yes Smoking Status (MU): Former Smoker Review of Systems Negative: Fever Negative: Abdominal Pain Psychological: Other - positive: SI All Other Systems Reviewed And Are Negative: Yes Physical Exam - Summary Physical Exam Summary: Appearance: Well appearing, no pain distress Skin: warm, dry, reflects adequate perfusion Head/face: normal Eyes: EOMI, KADY ENT: normal Neck: supple, non-tender Respiratory: CTA, breath sounds present Cardiovascular: RRR, pulses symmetrical Abdomen: non-tender, soft Musculoskeletal: normal, strength/ROM intact Neuro: normal, sensory motor intact, A&Ox3 Psych: depressed affect Triage Information Reviewed: Yes Vital Signs On Initial Exam: Initial Vitals Temp Pulse Resp BP Pulse Ox 98.6 F 71 16 164/86 98 10/03/18 18:27 10/03/18 18:27 10/03/18 18:27 10/03/18 18:27 10/03/18 18:27 Vital Signs Reviewed: Yes Diagnostics - Vital Signs Vital Signs Temp Pulse Resp BP Pulse Ox 10/03/18 18:27 98.6 F 71 16 164/86 98 - Laboratory Result Diagrams: 10/03/18 19:26 10/03/18 19:26 Lab Statement: Any lab studies that have been ordered have been reviewed, and results considered in the medical decision making process. Re-Evaluation - Re-Evaluation First Eval Re-Evaluation Time: 19:30 Change: Unchanged Comment: Pt cleared for MHE Course/Dx - Course Course Of Treatment: An 88 y/o female presents to [facility] with a chief complaint of SI. She was reported to have dementia but was able to correctly answer the year, where she is and who the president is. The physical exam revealed that the patient had a depressed affect. Bloodwork, chemistries and UA obtained. The patient has been cleared for MHE. The patient was placed on MHU hold. She will be signed out to Dr. Doss at 22:00 10/03/18. - Differential Dx/Clinical Impression Differential Diagnosis/HQI/PQRI: Positive: Depression, Suicidal Ideation Provider Diagnosis: Depression, Suicidal ideation Discharge - Sign-Out/Discharge Documenting (check all that apply): Sign-Out Patient Signing out patient TO: Hi Doss - on MHU hold Patient Received Moderate/Deep Sedation with Procedure: No - Discharge Plan Condition: Stable Referrals: Kajal Gomez MD [Primary Care Provider] - - Billing Disposition and Condition Condition: STABLE - Attestation Statements Document Initiated by Scribe: Yes Documenting Scribe: Kvng Kennedy Provider For Whom Scribe is Documenting (Include Credential): Modesto Srivastava MD Scribe Attestation: Kvng Walker, scribed for Modesto Srivastava MD on 10/03/18 at 2134. Scribe Documentation Reviewed: Yes Provider Attestation: The documentation as recorded by the scribe, Kvng Kennedy accurately reflects the service I personally performed and the decisions made by me, Modesto Srivastava MD Status of Scribe Document: Viewed
[2018-10-03 19:30] LABS: Urine Appearance Cloudy; Urine Bacteria Absent (Absent); Urine Bilirubin Negative (Negative); Urine Blood Negative (Negative); Urine Color Amber; Urine Glucose Negative (Negative); Urine Ketones Negative (Negative); Urine Nitrite Negative (Negative); Urine Protein Negative (Negative); Urine Red Blood Cell 2+(6-10/hpf) (Absent); Urine Specific Gravity 1.027 (1.010-1.030); Urine Squamous Epithelial Cell Present (Absent); Urine Urobilinogen Positive (Negative); Urine White Blood Cell 3+(>20/hpf) (Absent)
[2018-10-03 19:35] LABS: ABS Basophils 0 10^3/ul (0-0.2); ABS Eosinophils 0 10^3/ul (0-0.6); ABS Lymphocytes 0.9 10^3/ul (1.0-4.8); ABS Monocytes 0.5 10^3/ul (0-0.8); ABS Neutrophils 5.4 10^3/ul (1.5-7.7); ABS Nucleated RBC 0 10^3/ul; Eosinophil % 0.7 %; Hematocrit 42 % (33-41); Hemoglobin 13.8 g/dL (12.0-16.0); Lymphocyte % 12.9 %; Mean Corpuscular HGB Conc 33 g/dL (31-36); Mean Corpuscular Hemoglobin 29 pg (27-31); Mean Corpuscular Volume 88 fL (80-97); Mean Platelet Volume 9.5 fL (7.4-10.4); Nucleated Red Blood Cells % 0; Platelet Count 226 10^3/uL (150-450); Red Blood Count 4.71 10^6 /uL (3.70-4.87); Red Cell Distribution Width 14 % (10.5-15)
[2018-10-03 19:47] LABS: Barbiturates Urine Screen None Detected (None Detect); Benzodiazepine Urine Screen None Detected (None Detect); Urine Cannabinoids Screen None Detected (None Detect)
[2018-10-03 19:52] LABS: ALT 26 U/L (7-52); AST 28 U/L (13-39); Albumin 3.7 g/dL (3.2-5.2); Albumin/Globulin Ratio 1.2 (1-3); Alkaline Phosphatase 57 U/L (34-104); Anion Gap 4 mmol/L (2-11); BUN/Creatinine Ratio 27.2 (8-20); Blood Urea Nitrogen 22 mg/dL (6-24); CO2 Carbon Dioxide 31 mmol/L (22-32); Calcium 9.2 mg/dL (8.6-10.3); Chloride 103 mmol/L (101-111); EGFR African American 81.1 (>60); Globulin 3.1 g/dL (2-4); Glucose 93 mg/dL (70-100); Potassium 3.6 mmol/L (3.5-5.0); Sodium 138 mmol/L (135-145); Total Protein 6.8 g/dL (6.4-8.9)
[2018-10-03] MEDS ORDERED: Sulfamethox/Trimethoprim SS 400/80* TAB PO ONE (20:11)
[2018-10-03 20:28] LABS: Acetaminophen < 15 mcg/mL; Alcohol < 10 mg/dL (<10); Salicylate < 2.50 mg/dL (<30)
[2018-10-03 20:44] LABS: TSH (Thyroid Stimulating Horm) 4.77 mcIU/mL (0.34-5.60)
[2018-10-03] MEDS ORDERED: traZODone TAB* 50 MG TAB PO ONE (21:35)
--- NOTE | 2018-10-03 21:37 | ED ---
Progress - Progress Note Progress Note: The patient will not be signed out to Dr. Doss. Per mental health comic book designer, Dr. Campos has cleared the patient for discharge. The patient will be discharged with a prescription for Trazodone. The patient is agreeable with this plan. Re-Evaluation - Re-Evaluation First Eval Re-Evaluation Time: 19:30 Change: Unchanged Comment: Pt cleared for MHE Course/Dx - Course Course Of Treatment: The patient will not be signed out to Dr. Doss. Per mental health comic book designer, Dr. Campos has cleared the patient for discharge. The patient will be discharged with a prescription for Trazodone. The patient is agreeable with this plan. - Diagnoses Provider Diagnoses: Depression, Suicidal ideation - Provider Notifications Discussed Care Of Patient With: Ismael Campos Time Discussed With Above Provider: 21:38 Instructed by Provider To: Other - Per mental health comic book designer, Dr. Campos has cleared the patient for discharge. Discharge - Sign-Out/Discharge Documenting (check all that apply): Patient Departure - DC Patient Received Moderate/Deep Sedation with Procedure: No - Discharge Plan Condition: Stable Disposition: HOME Prescriptions: Cephalexin CAP* [Keflex CAP*] 500 mg PO QID #20 cap traZODone TAB* [Desyrel TAB*] 50 mg PO BEDTIME #5 tab Patient Education Materials: Depression (ED), Help Prevent Suicide in Older Adults (ED) Referrals: [facility] [Outside] () Kajal Gomez MD [Primary Care Provider] - - Billing Disposition and Condition Condition: STABLE Disposition: Home - Attestation Statements Document Initiated by Moni: Yes Documenting Scribe: Kvng Kennedy Provider For Whom Moni is Documenting (Include Credential): Modesto Srivastava MD Scribe Attestation: Aaron, Kvng Kennedy, scribed for Modesto Srivastava MD on 10/04/18 at 1818. Scribe Documentation Reviewed: Yes Provider Attestation: The documentation as recorded by the Kvng cutler accurately reflects the service I personally performed and the decisions made by me, Modesto Srivastava MD Status of Scribe Document: Viewed
[2018-10-03 22:37] VITALS: BP 159/89
== END 2018-10-03 22:35 | disposition home or self-care (01) ==
LOC: ED 18:06
DX: F32.9 Major depressive disorder, single episode, unspecified (principal); R45.851 Suicidal ideations; F03.90 Unspecified dementia, unspecified severity, without behavioral disturbance, psychotic disturbance, mood disturbance, and anxiety; I10 Essential (primary) hypertension; Z91.012 Allergy to eggs; Z91.011 Allergy to milk products; Z91.018 Allergy to other foods; Z87.891 Personal history of nicotine dependence
CPT/HCPCS: 36415; 80053; 80307; 80320; 80329; 81003; 81015; 84443; 85025; 87086; 99285; A9270-GY; G0480